=== PATIENT | male | born 1985 | race Caucasian/White ===

== ENCOUNTER 2018-11-16 14:29 | Inpatient (IN) | payer MEDICARE, SELFPAY ==
[2018-11-16] MEDS ORDERED: ISOVUE-370 76%-LOCM 1 ML ONE (15:28)
[2018-11-16] MEDS ORDERED: Fentanyl 100 MCG/2 ML VIAL ONE ×2 (15:54→17:43)
[2018-11-16] MEDS ORDERED: Ondansetron PF 4 MG/2 ML Vial ONE ×2 (15:54→18:07)
--- NOTE | 2018-11-16 16:03 | CT ---
CT OF THE LEFT LOWER EXTREMITY WITH IV CONTRAST: 11/16/18 INDICATION: History of BKA with sepsis and left lower extremity wound. FINDINGS: There is a wound involving the anterior aspect of the left BKA stump. There is prominent multiloculat ed fluid collections seen just distal to the amputation stump suspicious for small abscesses surround ing the BKA stump. No definite destructive osteolysis seen to suggest the presence of osteomyelitis. No large joint effusion is seen to suggest the presence of septic arthritis of the knee. There is pro minent cellulitis of the left thigh and left leg. There are enlarged lymph nodes seen within the left inguinal region likely reactive in nature. There is prominent distention of the visualized bladder. There is postsurgical change involving the symphysis pubis consistent with an arthrodesis. There is d iffuse osteopenia of the osseous structures of the left lower extremity. IMPRESSION: Cellulitis of the left leg and foreleg with multiple small loculated fluid collections seen just dist al to the BKA stump suspicious for periosseous abscesses. There is an open wound involving the anteri or aspect of the BKA stump that likely communicats with at least one of the more anterior based locul ated fluid collections. One of the largest collections is seen anteromedially measuring approximately 3.7 x 1 cm. POS: [facility]
[2018-11-16] MEDS ORDERED: Dextrose 5% in Water 1,000 ML IV PRN (18:12)
[2018-11-16] MEDS ORDERED: Bisacodyl 10 MG SUPP PR PRN (18:12)
[2018-11-16] MEDS ORDERED: Dextrose 50% Abboject 50 ML SYRINGE SLOW IVP PRN (18:12)
[2018-11-16] MEDS ORDERED: HumaLOG 300 UNITS/3 ML VIAL SC PRN (18:12)
[2018-11-16] MEDS ORDERED: Guaifenesin DM 100-10/5 ML UDCUP PO PRN (18:12)
[2018-11-16] MEDS ORDERED: Senokot S 8.6-50 MG TAB PO PRN (18:12)
[2018-11-16] MEDS ORDERED: Vancomycin HCl 1 GM in Sodium Chloride 0.9% 250 ML 300 ML IVPB SCH (18:15)
--- NOTE | 2018-11-16 18:50 | HP ---
REASON FOR ADMISSION: Left BKA stump abscess and sepsis. HISTORY OF PRESENTING ILLNESS: The patient gives history of having a small wound on the left BKA stump, which he sustained 4 weeks back. He says this likely happened with the stump rubbing onto the prosthesis that he has. This was slowly enlarging and finally got infected around 5 days back. His fiancee was doing the dressing on it, says yellowish purulent material started to come out from the ulcer in the anterior aspect. From yesterday, she also noticed a small ulcer on the medial aspect of the thigh, where purulent material started to appear as well. He also was feeling very febrile, but never measured any temperature. Finally, the patient went to [facility], where he was evaluated and transferred here. The patient is a traveling pipeline worker. He had his left BKA done in March of 2017 for nonhealing wounds on his legs after he fell from a ladder. He apparently broke his pelvis and his leg bones were broken at 4 pieces. This is as he fell from the ladder in 2016 and finally in 2018, he had a BKA done due to multiple gangrene issues and nonhealing wounds. PAST MEDICAL AND SURGICAL HISTORY: As mentioned above, left BKA in March of 2017 in [place], diabetes mellitus type 1 from last 30 years, chronic kidney disease stage 3, he has had all his teeth removed due to caries, tobacco abuse. CURRENT MEDICATIONS: Takes, 1. Lantus 12 units in a.m. and 14 units in p.m. 2. Humalog sliding scale. ALLERGIES: NO KNOWN DRUG ALLERGIES, BUT IS ALLERGIC TO MUSHROOMS. PERSONAL HISTORY: Smokes 1 pack a day. Does not abuse alcohol or drugs. Lives with his fiancee. Has 3 children. FAMILY HISTORY: Mother is healthy and living. He does not know much about his father for the last 30 years or so now. He has a daughter who has type 1 diabetes as well. CODE STATUS: Full. Power of commonwealth attorney is his fiancee, Ms. Elda Pinon, number to reach her is [phone]. REVIEW OF SYSTEMS: CONSTITUTIONAL: Negative for weight loss or gain, ability to conduct usual activities. SKIN: Negative for rash, itching. EYES: Negative for double vision, pain. ENT/MOUTH: Negative for nose bleeding, neck stiffness, pain, tenderness. CARDIOVASCULAR: Negative for palpitations, dyspnea on exertion, orthopnea. RESPIRATORY: Negative for shortness of breath, wheezing, cough, hemoptysis, fever or night sweats. GASTROINTESTINAL: Negative for poor appetite, abdominal pain, heartburn, nausea , vomiting, constipation, or diarrhea. GENITOURINARY: Negative for urgency, frequency, dysuria, nocturia. MUSCULOSKELETAL: Negative for pain, swelling. NEUROLOGIC/PSYCHIATRIC: Negative for anxiety, depression. ALLERGY/IMMUNOLOGIC: Negative for skin rash, bleeding tendency. PHYSICAL EXAMINATION: GENERAL: The patient is a 33-year-old male, who is currently not in any acute distress. VITAL SIGNS: Blood pressure 120/70, pulse 89 per minute, respiratory rate 14 per minute, temperature 98.9 degrees Fahrenheit, saturating 98% on room air. Had a temperature 103.5 degrees when he arrived at [facility]. NECK: Supple. No elevated JVD. HEENT: Eyes; extraocular muscles intact. Pupils reacting to light. Oral cavity, mucous membranes are dry. No exudates or congestion. CARDIOVASCULAR: S1 and S2 heard. Tachycardic. RESPIRATORY: Air entry 1+ bilateral. Scattered rhonchi plus no rales or wheezes. ABDOMEN: Soft. Bowel sounds heard. No tenderness, rigidity, or guarding. EXTREMITIES: Left BKA stump: on the anterior aspect there is a 5 x 3 cm ulcer, which is open and there is purulent material at the floor of the ulcer. He also has a medial ulcer on the stump, measuring 1 x 2 cm. There is bogginess and fullness of the stump. Right lower extremity, no ulcerations or gangrene. VASCULAR SYSTEM: Peripheral pulses 1+ bilateral. No ischemic ulcerations or gangrene. CENTRAL NERVOUS SYSTEM: No gross focal deficits noted. The patient is lethargic, but oriented well. PSYCHIATRIC: The patient's mood is euthymic. No hallucinations or delusions. LABORATORY AND DIAGNOSTIC DATA: Chest x-ray done shows no acute findings. Ultrasound of soft tissue of left knee done shows 2.3 cm hypoechoic collection on the lateral knee, deep to the muscle, most likely a debris-filled abscess. A CT of the left lower extremity with contrast done, shows cellulitis of the left leg and foreleg with multiple small loculated fluid collections seen just distal to the BKA stump, suspicious for periosseous abscesses. There is an open wound involving the anterior aspect of the BKA stump that likely communicates with at least one of the more anterior based loculated fluid collections. One of the largest collections is seen anteromedially, measuring 3.7 x 1 cm. White count of 13, H and H 11 and 37, and platelet count 322 with 88% neutrophils, MCV is 87. BUN 34, creatinine 1.7. Lactic acid was 1.3. LFTs are within normal limits. Albumin is 4. CLINICAL IMPRESSION AND PLAN: The patient will be admitted to medical floor for left BKA stump abscess with cellulitis and sepsis. Wound cultures were likely obtained at [facility]. I have asked the staff here to obtain another culture just in case. He is to be placed on vancomycin and Zosyn. We will continue him on Lantus 10 units subcu twice daily. He will be generously hydrated. He will be on lactated Ringer's at 100 mL/hour. I have spoken to Dr. Ivan for General Surgery consult. We will keep him n.p.o. after midnight if he needs further debridement in the OR. He will be on morphine p.r.n. for pain. We will obtain HbA1c in the morning. The patient apparently is very functional with his left BKA prosthesis and works actively in the pipeline industry. He states he travels all over the [place] wherever he gets work. He is not from any particular place at present. Job ID: [id number] [facility]
[2018-11-16] MEDS ORDERED: Insulin Glargine 10 UNITS in Pre-Filled Syringe 1 EACH SC SCH (21:00)
[2018-11-16] MEDS: Morphine 2 MG/ML SYRINGE SLOW IVP PRN (21:01)
[2018-11-16] MEDS: Nicotine 14 MG PATCH TD SCH (21:03)
[2018-11-16 21:48] VITALS: BMI 24.2
[2018-11-16] MEDS: Lactated Ringer's 1,000 ML IV SCH (22:47)
[2018-11-16] MEDS: Famotidine 20 MG TAB PO SCH (22:47)
[2018-11-16] MEDS: Piperacillin/Tazobactam 3.375 GM in Sodium Chloride 0.9% 100 ML IVPB SCH (22:47)
[2018-11-16] MEDS: Acetaminophen 325 MG TAB PO PRN (23:39)
--- NOTE | 2018-11-17 02:27 | CON ---
DATE OF CONSULTATION: 11/16/2018 CONSULTING PHYSICIAN: Gabriel Pineda MD REASON FOR CONSULTATION: Left below-knee stump infection. HISTORY OF PRESENT ILLNESS: The patient is a 33-year-old diabetic white male. He gives a history of having suffered a traumatic fall in 2015, at which time he had pelvic surgery and left lower extremity surgery. He apparently returned to work, developed swelling and ulcers on his foot at this surgical site. He developed infection to the point that it could not be salvaged and in March 2017, he underwent a left below-knee amputation. He has been ambulating since then with a prosthesis. 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 He tells me that he developed an ulcer at the anterior aspect of his left below-knee stump a few weeks ago and was trying to take care of this while still working. Unfortunately, the ulcer got bigger, eroded down into the stump, and he finally came to the emergency room for evaluation regarding this. He is a heavy smoker and in spite of his diabetes and wound issues, still smokes 1 pack per day of cigarettes. He typically takes several medications that he has not taken in at least a couple of months because of his current lack of insurance. PAST MEDICAL HISTORY: Hypertension, hypercholesterolemia, stage 3 kidney disease, insulin-dependent diabetes mellitus. PAST SURGICAL HISTORY: Pelvic surgery in 2015, left lower leg surgery in 2015, left below-knee amputation in March 2017, eye surgery for diabetic retinopathy in 2008. MEDICATIONS: Takes Lantus insulin twice a day and Humalog on a sliding scale. He is supposed to be taking lisinopril, metoprolol, and Lipitor, but has not taken any of these in at least 2 months. ALLERGIES: NO KNOWN DRUG ALLERGIES. PERSONAL AND SOCIAL HISTORY: He is engaged and his fiancee is present at bedside. He has 3 children who live in [place]. He smokes about a pack per day of cigarettes. He drinks alcohol rarely. He works at a [employer]. REVIEW OF SYSTEMS: Otherwise unremarkable. FAMILY HISTORY: Noncontributory. PHYSICAL EXAMINATION: VITAL SIGNS: He is afebrile. Pulse is in the 90s and regular. Blood pressure is 119/60. He has been afebrile since he has been here. GENERAL: This is a well-developed, well-nourished, pleasant white male, resting in bed, in no acute distress. He has multiple tattoos. HEAD, EYES, EARS, NOSE, AND THROAT: Unremarkable. NECK: Supple without mass or tenderness. LUNGS: Clear to auscultation throughout. CARDIAC: Regular rate and rhythm without murmur. ABDOMEN: Soft, nontender, nondistended. EXTREMITIES: Examination is focused upon his left leg. He has an open wound over the distal anterior aspect of his right below-knee stump. This currently measures about 1.5 x 2.5 cm. There is a central tract that extends deeply. With a Q-tip, I am able to palpate the tibia through this. There appears to be a cavity in this area. When I press on this area, purulence is expressed up through the tract. Cultures were obtained of this, the wound was packed with gauze and dry gauze dress was placed. LABORATORY DATA: His comprehensive metabolic panel is reviewed. His creatinine is elevated at 1.78. He has no prior labs for comparison, but I suspect this is stable. CBC reveals white blood cell count of 13.8 with a hemoglobin of 11.7. ASSESSMENT: The patient with an infected left below-knee stump. I would be surprised if the bone is not involved as it seems that I can palpate this with a Q-tip. PLAN: Plan for now is to take him to the operating room to open the wound to be able to better clean it out, begin wound care. Cultures have been obtained and as soon as possible, he will be changed to culture specific antibiotics. He will certainly require wound care for this to allow the infection to improve or resolve. I suspect when the infection is better, that he will need a revision of his below-knee amputation. There appears to be enough length that we could likely proceed with a revision without having to convert to an above-knee amputation. I did, however, expressed him the possibility of conversion to an above-knee amputation depending upon his course. I also informed him as strongly as possible the absolute importance that he stop smoking if he hopes this area to be able to heal appropriately. Job ID: [id number]
[2018-11-17] MEDS: Morphine 2 MG/ML SYRINGE SLOW IVP PRN ×6 (06:12→23:19)
[2018-11-17] MEDS: Piperacillin/Tazobactam 3.375 GM in Sodium Chloride 0.9% 100 ML IVPB SCH ×3 (06:13→23:19)
[2018-11-17 06:38] LABS: #Basophils 0.1 thou/uL (0.0-0.2); #Eosinphils 0.3 thou/uL (0.0-0.7); #Lymphocytes 1.9 thou/uL (1.20-3.40); #Monocytes 1.1 thou/uL (0.11-0.59); #Neutrophils 9.8 thou/uL (1.40-6.50); %Basophils 0.5 % (0.0-1.0); %Eosinophils 2.4 % (0.0-10.0); %Lymphocytes 14.4 % (21.0-51.0); %Neutrophils 74.8 % (42.0-75.0); Hemoglobin 9.6 g/dL (14.0-18.0); Mean Corpuscular HGB CONC 32.8 g/dL (32.0-36.0); Mean Corpuscular Hemoglobin 29.2 pg (27.0-31.0); Mean Corpuscular Volume 88.8 fL (78.0-98.0); Mean Platelet Volume 9.1 fL (7.4-10.4); Platelet Count 244 thou/uL (130-400); RBC Distribution Width 12.8 % (11.5-14.5); Red Blood Cell (RBC) Count 3.29 mill/uL (4.70-6.10); White Blood Cell (WBC) Count 13.1 thou/uL (4.8-10.8)
[2018-11-17 06:53] LABS: Hemoglobin A1c 13.2 % (4.0-6.0)
[2018-11-17 07:15] LABS: Anion Gap 11 mmol/L (10-20); BUN (Urea Nitrogen) 27 mg/dL (8.9-20.6); Calc. Creatinine Clearance 58 mL/min (70-130); Calcium 8.3 mg/dL (7.8-10.44); Carbon Dioxide 21 mmol/L (22-29); Chloride 106 mmol/L (98-107); Estimated GFR-MDRD 46; Glucose 102 mg/dL (70-105); Phosphorus 4.1 mg/dL (2.3-4.7); Potassium 4.7 mmol/L (3.5-5.1); Sodium 133 mmol/L (136-145)
[2018-11-17] MEDS: Lactated Ringer's 1,000 ML IV SCH ×3 (08:42→20:37)
[2018-11-17] MEDS: Famotidine 20 MG TAB PO SCH ×2 (08:43→20:30)
[2018-11-17] MEDS: Enoxaparin Sodium 30 MG/0.3 ML SYRINGE SC SCH (08:43)
[2018-11-17] MEDS: Insulin Glargine 10 UNITS in Pre-Filled Syringe 1 EACH SC SCH ×2 (08:47→20:29)
--- NOTE | 2018-11-17 11:46 | PDOC.HOSPP ---
- Subjective Encounter Date: 11/17/18 Encounter Time: 11:00 Subjective: no sob or pain feels better is npo for debridement shortly - Objective Vital Signs & Weight: Vital Signs (12 hours) Temp Pulse Resp BP BP Pulse Ox 11/17/18 08:00 99.1 F 81 16 142/70 H 96 11/17/18 04:00 98.3 F 81 16 131/67 96 Weight Weight 150 lb Result Diagrams: 11/17/18 06:23 11/17/18 06:23 Additional Labs: Accuchecks 11/17/18 11/17/18 11/16/18 11:01 05:40 23:40 POC Glucose 220 H 85 82 11/16/18 20:09 POC Glucose 71 Hospitalist ROS - Medication Medications: Active Medications Generic Name Dose Route Start Last Admin Trade Name Freq PRN Reason Stop Dose Admin Acetaminophen 650 mg 11/16/18 18:12 11/16/18 23:39 Tylenol PO 650 mg Q4H PRN Administration Headache/Fever/Mild Pain (1-3) Enoxaparin Sodium 30 mg 11/17/18 09:00 11/17/18 08:43 Lovenox SC Not Given 0900 WALTER Famotidine 20 mg 11/16/18 21:00 11/17/18 08:43 Pepcid PO Not Given BID WALTER Piperacillin Sod/Tazobactam 100 mls @ 200 mls/hr 11/16/18 23:00 11/17/18 06: 13 Sod 3.375 gm/ Sodium Chloride IVPB 100 mls 0700,1500,2300 WALTER Administration Lactated Ringer's 1,000 mls @ 100 mls/hr 11/16/18 18:30 11/17/18 09:47 Lactated Ringer's IV 1,000 mls .Q10H WALTER Administration Insulin Glargine 10 units/ 0.1 mls @ 0 mls/hr 11/17/18 09:00 11/17/18 08:47 Miscellaneous Medication SC Not Given BID WALTER Morphine Sulfate 2 mg 11/16/18 19:54 11/17/18 09:48 Morphine SLOW IVP 2 mg Q2H PRN Administration Breakthrough Pain Nicotine 14 mg 11/16/18 20:15 11/16/18 21:03 Nicoderm Patch TD 14 mg Q24HR WALTER Administration - Exam General Appearance: NAD, awake alert Eye: PERRL, anicteric sclera ENT: no oropharyngeal lesions, moist mucosa Neck: supple, no JVD Heart: RRR, no murmur Respiratory: no wheezes, no rales Gastrointestinal: soft, non-tender, normal bowel sounds Extremeties - other findings: left bka stump in dressing Neurological: CN's grossly intact, no focal deficits Psychiatric: normal affect, A&O x 3 Hosp A/P (1) left bka stump abscess Status: Acute (2) DM type 1 (diabetes mellitus, type 1) Status: Chronic Qualifiers: Diabetes mellitus complication status: with kidney complications Diabetes mellitus complication detail: with chronic kidney disease Chronic kidney disease stage: stage 3 (moderate) Qualified Code(s): E10.22 - Type 1 diabetes mellitus with diabetic chronic kidney disease; N18.3 - Chronic kidney disease, stage 3 (moderate) (3) CKD (chronic kidney disease) stage 3, GFR 30-59 ml/min Code(s): N18.3 - CHRONIC KIDNEY DISEASE, STAGE 3 (MODERATE) Status: Chronic (4) ANIYAH (acute kidney injury) Code(s): N17.9 - ACUTE KIDNEY FAILURE, UNSPECIFIED Status: Acute (5) Dehydration Code(s): E86.0 - DEHYDRATION Status: Resolved (6) Sepsis Code(s): A41.9 - SEPSIS, UNSPECIFIED ORGANISM Status: Acute Qualifiers: Sepsis type: sepsis due to unspecified organism Severe sepsis shock status : without septic shock - Plan is going for debridement today continue lantus post op bid with humalog cov on vanc and zosyn, await culture results aniyah is resolving, has ckd hemostable
[2018-11-17] MEDS ORDERED: Ondansetron PF 4 MG/2 ML Vial ONE (11:49)
[2018-11-17] MEDS ORDERED: Lidocaine 1% PF 5 ML VIAL ONE (11:49)
[2018-11-17] MEDS ORDERED: PROPOFOL 200 MG/20 ML VIAL ONE (11:49)
[2018-11-17] MEDS ORDERED: Fentanyl 100 MCG/2 ML VIAL ONE ×3 (12:20→14:13)
[2018-11-17] MEDS ORDERED: Morphine Sulfate 2 MG/ML SYRINGE SLOW IVP PRN (13:35)
[2018-11-17] MEDS ORDERED: Promethazine HCl 25 MG/ML VIAL IM PRN (13:35)
[2018-11-17] MEDS ORDERED: Ondansetron HCl/PF 4 MG/2 ML Vial IVP PRN (13:35)
[2018-11-17] MEDS ORDERED: PACU-Morphine 4MG/ML VIAL SLOW IVP PRN (13:35)
[2018-11-17] MEDS ORDERED: Promethazine HCl 25 MG/ML VIAL SLOW IVP PRN (13:35)
[2018-11-17] MEDS ORDERED: HYDROmorphone 2 MG/ML VIAL SLOW IVP PRN (13:35)
[2018-11-17] MEDS ORDERED: Meperidine HCl/PF 25 MG/ML VIAL SLOW IVP PRN (13:35)
[2018-11-17] MEDS: Vancomycin HCl 1.25 GM in Sodium Chloride 0.9% 250 ML 250 ML IVPB SCH (13:39)
[2018-11-17] MEDS: Ondansetron PF 4 MG/2 ML Vial IVP PRN (15:52)
[2018-11-17] MEDS: HumaLOG 300 UNITS/3 ML VIAL SC PRN ×2 (18:42→20:29)
[2018-11-17] MEDS: Acetaminophen 325 MG TAB PO PRN (18:45)
[2018-11-17] MEDS: traMADol HCl 50 MG TAB PO PRN (18:46)
[2018-11-17] MEDS: Nicotine 14 MG PATCH TD SCH (20:30)
[2018-11-18] MEDS: Morphine 2 MG/ML SYRINGE SLOW IVP PRN ×11 (01:18→21:57)
[2018-11-18] MEDS: HumaLOG 300 UNITS/3 ML VIAL SC PRN ×2 (05:23→11:41)
[2018-11-18] MEDS: Lactated Ringer's 1,000 ML IV SCH (06:29)
[2018-11-18] MEDS: Piperacillin/Tazobactam 3.375 GM in Sodium Chloride 0.9% 100 ML IVPB SCH ×3 (06:30→22:47)
[2018-11-18] MEDS: Ondansetron PF 4 MG/2 ML Vial IVP PRN ×2 (07:28→15:35)
[2018-11-18] MEDS: Famotidine 20 MG TAB PO SCH ×2 (09:09→20:17)
[2018-11-18] MEDS: traMADol HCl 50 MG TAB PO PRN (09:09)
[2018-11-18] MEDS: Insulin Glargine 20 UNITS in Pre-Filled Syringe 1 EACH SC SCH ×2 (09:10→20:18)
[2018-11-18] MEDS: Enoxaparin Sodium 30 MG/0.3 ML SYRINGE SC SCH (10:42)
[2018-11-18 11:22] LABS: #Basophils 0.1 thou/uL (0.0-0.2); #Eosinphils 0.3 thou/uL (0.0-0.7); #Lymphocytes 1.1 thou/uL (1.20-3.40); #Monocytes 0.7 thou/uL (0.11-0.59); #Neutrophils 6.7 thou/uL (1.40-6.50); %Basophils 0.7 % (0.0-1.0); %Eosinophils 3.3 % (0.0-10.0); %Lymphocytes 12.9 % (21.0-51.0); %Monocytes 7.5 % (0.0-10.0); %Neutrophils 75.5 % (42.0-75.0); Hemoglobin 8.7 g/dL (14.0-18.0); Mean Corpuscular Hemoglobin 29.1 pg (27.0-31.0); Mean Corpuscular Volume 88.2 fL (78.0-98.0); Mean Platelet Volume 8.7 fL (7.4-10.4); Platelet Count 268 thou/uL (130-400); RBC Distribution Width 12.6 % (11.5-14.5); Red Blood Cell (RBC) Count 2.98 mill/uL (4.70-6.10); White Blood Cell (WBC) Count 8.9 thou/uL (4.8-10.8)
[2018-11-18 11:40] LABS: Vancomycin, Trough 10.5 ug/mL
[2018-11-18] MEDS: Vancomycin HCl 1.25 GM in Sodium Chloride 0.9% 250 ML 250 ML IVPB SCH (11:41)
[2018-11-18 11:43] LABS: Anion Gap 11 mmol/L (10-20); BUN (Urea Nitrogen) 22 mg/dL (8.9-20.6); Calc. Creatinine Clearance 65 mL/min (70-130); Calcium 8.4 mg/dL (7.8-10.44); Carbon Dioxide 22 mmol/L (22-29); Chloride 106 mmol/L (98-107); Estimated GFR-MDRD 52; Glucose 230 mg/dL (70-105); Potassium 4.8 mmol/L (3.5-5.1); Sodium 134 mmol/L (136-145)
--- NOTE | 2018-11-18 12:04 | PDOC.HOSPP ---
- Subjective Encounter Date: 11/18/18 Encounter Time: 11:15 Subjective: feels better left bka stump in wound vac no pain - Objective Vital Signs & Weight: Vital Signs (12 hours) Temp Pulse Resp BP BP Pulse Ox 11/18/18 08:00 98.2 F 72 18 144/77 H 98 11/18/18 03:30 97.8 F 68 16 143/72 H 96 Weight Admit Weight 150 lb Weight 150 lb Result Diagrams: 11/18/18 11:11 11/18/18 11:11 Additional Labs: Accuchecks 11/18/18 11/18/18 11/17/18 11:10 05:23 20:00 POC Glucose 229 H 289 H 399 H 11/17/18 11/17/18 18:27 12:27 POC Glucose 423 H 215 H Hospitalist ROS - Medication Medications: Active Medications Generic Name Dose Route Start Last Admin Trade Name Freq PRN Reason Stop Dose Admin Acetaminophen 650 mg 11/16/18 18:12 11/17/18 18:45 Tylenol PO 650 mg Q4H PRN Administration Headache/Fever/Mild Pain (1-3) Enoxaparin Sodium 30 mg 11/17/18 09:00 11/18/18 10:42 Lovenox SC Not Given 0900 WALTER Famotidine 20 mg 11/16/18 21:00 11/18/18 09:09 Pepcid PO 20 mg BID WALTER Administration Piperacillin Sod/Tazobactam 100 mls @ 200 mls/hr 11/16/18 23:00 11/18/18 06: 30 Sod 3.375 gm/ Sodium Chloride IVPB 100 mls 0700,1500,2300 WALTER Administration Vancomycin HCl 1.25 gm/ Sodium 250 mls @ 166.667 mls/hr 11/17/18 12:00 11:41 Chloride IVPB 250 mls 1200 WALTER Administration Insulin Glargine 20 units/ 0.2 mls @ 0 mls/hr 11/18/18 09:00 11/18/18 09:10 Miscellaneous Medication SC 0.2 mls BID WALTER Administration Insulin Human Lispro 0 units 11/16/18 18:12 11/18/18 11:41 Humalog SC 4 unit .MODERATE SLIDING SC PRN Administration Moderate Correctional Scale Morphine Sulfate 2 mg 11/16/18 19:54 11/18/18 11:42 Morphine SLOW IVP 2 mg Q2H PRN Administration Breakthrough Pain Nicotine 14 mg 11/16/18 20:15 11/17/18 20:30 Nicoderm Patch TD 14 mg Q24HR WALTER Administration Ondansetron HCl 4 mg 11/16/18 18:12 11/18/18 07:28 Zofran IVP 4 mg Q6H PRN Administration Nausea/Vomiting Tramadol HCl 50 mg 11/16/18 18:12 11/18/18 09:09 Ultram PO 50 mg Q6H PRN Administration Pain - Exam General Appearance: NAD, ill appearing Eye: PERRL, anicteric sclera ENT: normocephalic atraumatic, no oropharyngeal lesions Neck: supple, no JVD Heart: RRR, no murmur Respiratory: no wheezes, no rales Gastrointestinal: soft, non-tender, normal bowel sounds Extremeties - other findings: left bka stump in wound vac Neurological: CN's grossly intact, no focal deficits Psychiatric: normal affect, A&O x 3 Hosp A/P (1) left bka stump abscess Status: Acute (2) DM type 1 (diabetes mellitus, type 1) Status: Chronic Qualifiers: Diabetes mellitus complication status: with kidney complications Diabetes mellitus complication detail: with chronic kidney disease Chronic kidney disease stage: stage 3 (moderate) Qualified Code(s): E10.22 - Type 1 diabetes mellitus with diabetic chronic kidney disease; N18.3 - Chronic kidney disease, stage 3 (moderate) (3) CKD (chronic kidney disease) stage 3, GFR 30-59 ml/min Code(s): N18.3 - CHRONIC KIDNEY DISEASE, STAGE 3 (MODERATE) Status: Chronic (4) ANIYAH (acute kidney injury) Code(s): N17.9 - ACUTE KIDNEY FAILURE, UNSPECIFIED Status: Resolved (5) Dehydration Code(s): E86.0 - DEHYDRATION Status: Resolved (6) Sepsis Code(s): A41.9 - SEPSIS, UNSPECIFIED ORGANISM Status: Acute Qualifiers: Sepsis type: sepsis due to unspecified organism Severe sepsis shock status : without septic shock - Plan had debridement on 11/17/2018, wound in vac increase lantus to 20 bid with humalog cov on vanc and zosyn, await culture results (strep species with gm -ve rods) aniyah resolved, has ckd #3 hemostable
--- NOTE | 2018-11-18 15:57 | PRG ---
DATE OF SERVICE: 11/18/2018 SUBJECTIVE: Mr. Crowell is postoperative day #1 from incision and drainage of left below-knee amputation stump. He had a loculated abscess to the medial aspect as well as purulence within the soft tissue. I am not really certain that the bone was infected as it really did not seem to be exposed or involved. The cultures of his stump drainage have resulted in two different varieties of Streptococcus, both of which will be easily treated by a variety of antibiotics. He currently remains on vancomycin, which is more than adequate coverage as well as Zosyn. He can probably be transitioned to oral antibiotics in the near future. He reports that he feels better and has less pain in his stump. PHYSICAL EXAMINATION: VITAL SIGNS: Temperature is 98.2, pulse 72, blood pressure 144/77. LUNGS: Clear to auscultation. ABDOMEN: Benign. EXTREMITIES: Stump has a wound VAC dressing in place. LABORATORY STUDIES: His white blood cell count has dropped from 13.1 down to 8.9. His hemoglobin is 8.7. His electrolytes are essentially unremarkable. His creatinine has dropped from 1.72 down to 1.55. His blood sugars remain persistently elevated over 200, indicating that he is not on enough baseline insulin. ASSESSMENT: He is doing well following incision and drainage of his stump abscess. He will require ongoing wound care. Given that his infection was only Streptococcus, he should be well treated with a variety of oral antibiotics. I will leave this at the discretion of his hospitalist. He would certainly benefit from tighter glucose control. It is noted that his hemoglobin A1c was 13.2, which would correspond to an average blood sugar of 330 over the prior three months. His glucose control is horribly inadequate. I spent quite a while today, speaking with the patient and his girlfriend regarding the importance of his complete smoking cessation as well as better glucose control if he hopes to heal this wound and prevent further wounds and further amputations. He seems to understand and hopes to make these changes. He is awaiting a home wound VAC prior to discharge. He tells me he plans to stay in the area and continue to work for his current company. Whenever he is discharged, I want to see him back in 2 weeks. Job ID: [id number]
[2018-11-18] MEDS: Nicotine 14 MG PATCH TD SCH (19:43)
[2018-11-19] MEDS ORDERED: Vancomycin HCl 750 MG in Sodium Chloride 0.9% 250 ML 250 ML IVPB SCH
[2018-11-19] MEDS: Morphine 2 MG/ML SYRINGE SLOW IVP PRN ×5 (00:04→11:07)
--- NOTE | 2018-11-19 03:27 | OP ---
DATE OF PROCEDURE: 11/16/2018 PREOPERATIVE DIAGNOSIS: Infection of left below-knee amputation stump with suspected abscess. POSTOPERATIVE DIAGNOSIS: Infection of left below-knee amputation stump with suspected abscess with finding of abscess. PROCEDURE PERFORMED: Incision and drainage of left below-knee amputation stump. ANESTHESIA: General with laryngeal mask airway. INDICATIONS: The patient is a 33-year-old diabetic white male, who has undergone previous left below-knee amputation. He has an ulcer on the anterior distal aspect of the stump overlying the end of the bone. There is no bone protruding. Recent CT scan shows what appears to be an abscess in the area. He is taken to the operating room at this time for incision and drainage of the wound. DESCRIPTION OF OPERATION: Informed consent was obtained. The patient was taken to the operating room, where general anesthesia was obtained with the patient in supine position. Left BKA stump was prepped with Betadine and draped in sterile fashion. A transverse incision was created at the incision line of his prior stump closure. This was towards the inferior aspect of the ulcer. Dissection was carried through the skin and subcutaneous tissue down into the abscess cavity. The total width of the incision was about 8 cm. I broke down loculations and opened the cavity widely. There was no exposed bone. As I examined to the medial aspect, I identified a separate abscess cavity and this was opened widely. This extended proximally about 3 or 4 cm. The wound bed was then debrided using curette. I then packed the wound with a dry gauze dressing. I placed a Kerlix roll and an Naveen wrap over the wound. There were no complications. The patient tolerated the procedure well. He was taken to recovery room in stable condition. A wound VAC will be placed tomorrow. Job ID: [id number]
[2018-11-19] MEDS: Piperacillin/Tazobactam 3.375 GM in Sodium Chloride 0.9% 100 ML IVPB SCH (06:31)
[2018-11-19] MEDS: HumaLOG 300 UNITS/3 ML VIAL SC PRN ×2 (06:34→11:53)
[2018-11-19] MEDS: Ondansetron PF 4 MG/2 ML Vial IVP PRN ×2 (08:21→16:43)
[2018-11-19 08:24] VITALS: TEMP 98.1
[2018-11-19] MEDS ORDERED: Amoxicillin/Potassium Clav 875 MG TAB PO SCH (09:00)
[2018-11-19] MEDS ORDERED: Insulin Glargine 30 UNITS in Pre-Filled Syringe 1 EACH SC SCH (09:00)
[2018-11-19] MEDS: Enoxaparin Sodium 30 MG/0.3 ML SYRINGE SC SCH (09:33)
[2018-11-19] MEDS: Famotidine 20 MG TAB PO SCH (09:33)
[2018-11-19] MEDS: Acetaminophen 325 MG TAB PO PRN ×2 (09:34→16:42)
[2018-11-19] MEDS: traMADol HCl 50 MG TAB PO PRN ×2 (09:35→16:41)
--- NOTE | 2018-11-19 11:20 | PDOC.HOSPP ---
- Subjective Encounter Date: 11/19/18 Encounter Time: 11:00 Subjective: feels better, no pain - Objective Vital Signs & Weight: Vital Signs (12 hours) Temp Pulse Resp BP Pulse Ox 11/19/18 08:00 98.1 F 80 18 200/95 H 95 Weight Admit Weight 150 lb Weight 150 lb I&O: 11/18/18 11/19/18 11/20/18 06:59 06:59 06:59 Intake Total 799 Balance 799 Result Diagrams: 11/18/18 11:11 11/18/18 11:11 Additional Labs: Accuchecks 11/19/18 11/19/18 11/18/18 11:07 04:56 20:09 POC Glucose 226 H 261 H 319 H 11/18/18 11/18/18 16:04 11:10 POC Glucose 187 H 229 H Hospitalist ROS - Medication Medications: Active Medications Generic Name Dose Route Start Last Admin Trade Name Freq PRN Reason Stop Dose Admin Acetaminophen 650 mg 11/16/18 18:12 11/19/18 09:34 Tylenol PO 650 mg Q4H PRN Administration Headache/Fever/Mild Pain (1-3) Amoxicillin/Clavulanate Potassium 875 mg 11/19/18 09:00 11/19/18 09:33 Augmentin PO 875 mg Q12HR WALTER Administration Enoxaparin Sodium 30 mg 11/17/18 09:00 11/19/18 09:33 Lovenox SC 30 mg 0900 WALTER Administration Famotidine 20 mg 11/16/18 21:00 11/19/18 09:33 Pepcid PO 20 mg BID WALTER Administration Insulin Glargine 30 units/ 0.3 mls @ 0 mls/hr 11/19/18 09:00 11/19/18 09:33 Miscellaneous Medication SC 0.3 mls BID WALTER Administration Insulin Human Lispro 0 units 11/16/18 18:12 11/19/18 06:34 Humalog SC 6 unit .MODERATE SLIDING SC PRN Administration Moderate Correctional Scale Insulin Human Lispro 0 units 11/16/18 18:12 11/18/18 20:17 Humalog SC 4 unit .BEDTIME SLIDING SC PRN Administration Bedtime Correctional Scale Morphine Sulfate 2 mg 11/16/18 19:54 11/19/18 11:07 Morphine SLOW IVP 2 mg Q2H PRN Administration Breakthrough Pain Nicotine 14 mg 11/16/18 20:15 11/18/18 19:43 Nicoderm Patch TD 14 mg Q24HR WALTER Administration Ondansetron HCl 4 mg 11/16/18 18:12 11/19/18 08:21 Zofran IVP 4 mg Q6H PRN Administration Nausea/Vomiting Sodium Chloride 10 ml 11/18/18 21:00 11/18/18 20:23 Flush - Normal Saline IVF 10 ml Q12HR WALTER Administration Sodium Chloride 10 ml 11/18/18 19:42 11/19/18 04:57 Flush - Normal Saline IVF 10 ml PRN PRN Administration Saline Flush Tramadol HCl 50 mg 11/16/18 18:12 11/19/18 09:35 Ultram PO 50 mg Q6H PRN Administration Pain - Exam General Appearance: NAD, awake alert Eye: PERRL, anicteric sclera ENT: normocephalic atraumatic, no oropharyngeal lesions, moist mucosa Neck: supple, no JVD Heart: RRR, no murmur Respiratory: no wheezes, no rales Gastrointestinal: soft, non-tender, non-distended, normal bowel sounds Extremities: no edema Extremeties - other findings: right bka stump in wound vac Neurological: CN's grossly intact, no focal deficits Psychiatric: A&O x 3 Hosp A/P (1) left bka stump abscess Status: Acute (2) DM type 1 (diabetes mellitus, type 1) Status: Chronic Qualifiers: Diabetes mellitus complication status: with kidney complications Diabetes mellitus complication detail: with chronic kidney disease Chronic kidney disease stage: stage 3 (moderate) Qualified Code(s): E10.22 - Type 1 diabetes mellitus with diabetic chronic kidney disease; N18.3 - Chronic kidney disease, stage 3 (moderate) (3) CKD (chronic kidney disease) stage 3, GFR 30-59 ml/min Code(s): N18.3 - CHRONIC KIDNEY DISEASE, STAGE 3 (MODERATE) Status: Chronic (4) ANIYAH (acute kidney injury) Code(s): N17.9 - ACUTE KIDNEY FAILURE, UNSPECIFIED Status: Resolved (5) Dehydration Code(s): E86.0 - DEHYDRATION Status: Resolved (6) Sepsis Code(s): A41.9 - SEPSIS, UNSPECIFIED ORGANISM Status: Resolved Qualifiers: Sepsis type: sepsis due to unspecified organism Severe sepsis shock status : without septic shock - Plan had debridement on 11/17/2018, wound in vac increase lantus to 30 bid with humalog cov on augmentin bid aniyah resolved, has ckd #3 hemostable will need outpt wound vac and help with insulins for dc plan may dc home if above is arranged, d/w caser up
[2018-11-19] MEDS ORDERED: Lisinopril 10 MG TAB PO SCH (12:00)
[2018-11-19] MEDS ORDERED: Ketorolac Tromethamine 30 MG/ML VIAL IVP PRN (12:15)
[2018-11-19 13:15] VITALS: BP 168/82
[2018-11-19] MEDS ORDERED: Metoprolol Tartrate 25 MG TAB PO SCH (21:00)
[2018-11-20] MEDS ORDERED: Lisinopril 10 MG TAB PO SCH (09:00)
--- NOTE | 2018-11-21 08:17 | DIS ---
DATE OF ADMISSION: 11/16/2018 DATE OF DISCHARGE: 11/19/2018 DISCHARGE DISPOSITION: Home. PRIMARY DISCHARGE DIAGNOSIS: Left below-knee amputation stump abscess with cellulitis status post incision and drainage. SECONDARY DISCHARGE DIAGNOSES: Sepsis, diabetes mellitus type 1, chronic kidney disease stage 3, and dehydration on arrival, resolved. PROCEDURES DONE DURING HOSPITALIZATION: The patient has had incision and drainage of left BKA abscess done by Dr. Ivan on 11/17/2018. CT of left lower extremity with IV contrast done on the day of admission showed cellulitis of left leg and foreleg with multiple small loculated fluid collections seen just distal to the BKA stump suspicious for periosseous abscesses. There is an open wound involving the anterior aspect of the BKA stump that likely communicates with at least one of the more anterior based loculated fluid collections. One largest collection is seen anteromedially measuring approximately 3.7 x 1 cm. Wound cultures from this left BKA stump have grown Streptococcus group C, group B, Staph aureus, and gram- positive leslie. Blood cultures x2, no growth. Had a white count of 13 on the day of admission, discharge white count of 8.9, H and H 8.7 and 26, platelet count 268, MCV is 88. BUN and creatinine on the were 22 and 1.5. HbA1c 13.2. DISCHARGE MEDICATIONS: 1. Lisinopril 10 mg daily. 2. Toprol-XL 25 mg daily. 3. Augmentin 500/125 mg one tablet twice daily for a total of 10 days. 4. Lantus 30 units subcu twice daily. 5. Humalog subcu before meals. 6. Ultram p.r.n. for pain. ALLERGIES: MUSHROOM. INPATIENT CONSULT: Dr. Ivan for General Surgery. DISCHARGE PLAN: The patient to follow up with Dr. Ivan in 2 weeks. He also needs to follow up with the Wound Care and primary care physician, [facility] in 1 week. BRIEF COURSE DURING HOSPITALIZATION: The patient initially got admitted on the with findings suggestive of left BKA stump abscess with cellulitis. This has been slowly building in 4 weeks, which got worse 4 days prior to arrival here. He was evaluated by Dr. Ivan. The patient has had incision and debridement of the abscess on the left BKA stump. Postop, the patient's wound was placed in a wound VAC. He was septic on arrival with uncontrolled diabetes and moderate dehydration as well. The patient was generously hydrated and was on IV antibiotics, which has been switched over to Augmentin at the time of discharge based on cultures. He is hemodynamically stable. Prior to arrival here, the patient was ambulating with his prosthesis. He likely needs to use a rolling walker or crutches to ambulate now. Outpatient wound care appointments have been set up for him. He needs to follow up with Dr. Ivan in 2 weeks. The patient was counseled with regard to tobacco abuse and tight control of his diabetes. His Lantus insulin doses were increased to 30 units twice daily. He has been advised to check fingerstick glucose twice daily and record to follow up with primary care physician for changes in his medications. He is otherwise hemodynamically stable and has been cleared by General Surgery for discharge. Please note I have seen and examined patient on the day of discharge. Job ID: [id number] MTDD
== END 2018-11-19 17:50 | disposition home or self-care (01) | DRG 500 ==
LOC: ERS 14:29 → ONC 16:45
PROVIDERS: ADMIT Internal Medicine; ATTEND Internal Medicine
PROC: 0J9P0ZZ Drainage of Left Lower Leg Subcutaneous Tissue and Fascia, Open Approach (ICD-10-PCS; principal; 2018-11-18)
DX: T87.44 Infection of amputation stump, left lower extremity (principal); A41.9 Sepsis, unspecified organism; N17.9 Acute kidney failure, unspecified; L02.416 Cutaneous abscess of left lower limb; Y83.9 Surgical procedure, unspecified as the cause of abnormal reaction of the patient, or of later complication, without mention of misadventure at the time of the procedure; E86.0 Dehydration; I12.9 Hypertensive chronic kidney disease with stage 1 through stage 4 chronic kidney disease, or unspecified chronic kidney disease; E10.22 Type 1 diabetes mellitus with diabetic chronic kidney disease; F17.210 Nicotine dependence, cigarettes, uncomplicated; N18.3 Chronic kidney disease, stage 3 (moderate); E78.00 Pure hypercholesterolemia, unspecified; Z79.4 Long term (current) use of insulin
CPT/HCPCS: 36415; 36416; 80048; 80069; 80202; 83036; 83605; 85025; 87070; 87077; 87186; 87205; 96361; 96374; 96375; 96376; J1650; J1815; J1885; J2001; J2270; J2405; J2543; J2704; J3010; J3370; J3490; J7050; Q9966

== ENCOUNTER → 2018-11-23 | Outpatient (CLI) | payer SELFPAY ==
[~2018-11-23] MED LIST: Sodium Chloride 0.9% 15 ML NEB ONE
== END ==
LOC: WCC 09:00
PROVIDERS: ATTEND Family Medicine
DX: T81.49XA Infection following a procedure, other surgical site, initial encounter (principal); T81.44XA Sepsis following a procedure, initial encounter; L03.116 Cellulitis of left lower limb; Z79.4 Long term (current) use of insulin; T87.89 Other complications of amputation stump
CPT/HCPCS: A4218

== ENCOUNTER 2018-11-30 14:59 | Outpatient (CLI) | payer SELFPAY ==
[2018-11-30] MEDS ORDERED: Sodium Chloride 0.9% 15 ML NEB ONE (15:00)
== END 2018-11-30 15:00 | disposition home or self-care (01) ==
LOC: WCC 14:59
PROVIDERS: ATTEND Family Medicine
DX: T81.89XD Other complications of procedures, not elsewhere classified, subsequent encounter (principal); Z89.512 Acquired absence of left leg below knee
CPT/HCPCS: 97605; A4218

== ENCOUNTER 2018-12-03 14:42 | Outpatient (CLI) | payer SELFPAY | END 2018-12-03 14:43 | disposition home or self-care (01) | LOC: WCC 14:42 | PROVIDERS: ATTEND Family Medicine | DX: T81.89XD Other complications of procedures, not elsewhere classified, subsequent encounter (principal); Z89.512 Acquired absence of left leg below knee | CPT/HCPCS: 97605; A4218 ==

== ENCOUNTER 2018-12-07 13:04 | Outpatient (CLI) | payer SELFPAY | END 2018-12-07 13:05 | disposition home or self-care (01) | LOC: WCC 13:04 | PROVIDERS: ATTEND Family Medicine | DX: T81.89XD Other complications of procedures, not elsewhere classified, subsequent encounter (principal); Z89.512 Acquired absence of left leg below knee | CPT/HCPCS: 97605; A4218 ==

== ENCOUNTER 2018-12-10 11:56 | Outpatient (CLI) | payer SELFPAY ==
[2018-12-10] MEDS ORDERED: Sodium Chloride 0.9% 15 ML NEB ONE (15:00)
== END 2018-12-10 11:57 | disposition home or self-care (01) ==
LOC: WCC 11:56
PROVIDERS: ATTEND Family Medicine
DX: T87.89 Other complications of amputation stump (principal); Z89.512 Acquired absence of left leg below knee
CPT/HCPCS: A4218

== ENCOUNTER 2018-12-13 14:22 | Outpatient (CLI) | payer SELFPAY ==
[2018-12-13] MEDS ORDERED: Sodium Chloride 0.9% 15 ML NEB ONE (17:01)
== END 2018-12-13 14:23 | disposition home or self-care (01) ==
LOC: WCC 14:22
PROVIDERS: ATTEND Family Medicine
DX: T81.89XD Other complications of procedures, not elsewhere classified, subsequent encounter (principal); Z89.512 Acquired absence of left leg below knee
CPT/HCPCS: 97605; A4218

== ENCOUNTER 2018-12-16 15:28 | Outpatient (CLI) | payer SELFPAY ==
[~2018-12-16 15:28] MED LIST changes: +Lidocaine 2% PF 100 mg/5 ml Syringe ONE
--- NOTE | 2018-12-16 15:37 | HP ---
HISTORY OF PRESENT ILLNESS: Mr. Shankar Crowell is a very pleasant 33-year-old gentleman, who presents to the Wound Center for evaluation of a wound of his left ulqwq-enc-ooqh amputation stump subsequent to incision and drainage of the left ewpsd-ecv-vxud amputation stump on 11/16/[address] Ketan Ivan. Negative pressure therapy was initiated subsequent to surgery and upon discharge from [facility], the patient was referred to the Wound Center for assistance with dressing changes of the wound VAC. The patient was discharged to home on Augmentin 500/125 one p.o. b.i.d. x10 days, which he completed taking as prescribed. The patient has no complaints today. He denies any fever or chills. PAST MEDICAL HISTORY: 1. Diabetes mellitus. 2. Chronic kidney disease, stage 3. 3. Hypertension. PAST SURGICAL HISTORY: 1. Left hcmfv-lpe-ywge amputation in 2017. 2. Teeth extraction. 3. Pelvic surgery in 2016 after a fall. 4. Left lower leg surgery in 2016 after fall. 5. Right eye surgery for diabetic retinopathy. 6. Incision and drainage of left yzpyp-gok-heyl amputation stump on 11/16/2018 as per HPI. MEDICATIONS: 1. Lantus. 2. Humalog. ALLERGIES: THE PATIENT STATES HE IS ALLERGIC TO MUSHROOMS. SOCIAL HISTORY: Social history is significant for tobacco use of approximately 1 pack of cigarettes per day since age 14. The patient denies any history of EtOH use. FAMILY HISTORY: Family history is negative for diabetes mellitus or coronary artery disease. PHYSICAL EXAMINATION: VITAL SIGNS: Temperature 98.2, pulse 97, respirations 19, and blood pressure 147/78. Accu-Chek 201. GENERAL: A 33-year-old gentleman, sitting on chair in examination room, in no acute distress. HEENT: Normocephalic and atraumatic. NECK: No nuchal rigidity. CHEST: Clear to auscultation. CV: Regular rate and rhythm. ABDOMEN: Soft. EXTREMITIES: An ulceration of the distal left okzrv-lmh-ooqu amputation stump is present. The ulceration is located over the anterior aspect of the left uwwhs-ghe-otwv amputation stump. The dimensions of the wound are approximately 3.7 x 6.5 cm. Granulation tissue is present within the wound margins. Necrotic and nonviable tissue present within the wound margins was debrided with an excisional full-thickness debridement with the use of a curette. No purulent drainage is associated with the wound. No erythema of the skin surrounding the wound is present. No maceration of the skin of the periwound is noted. A popliteal pulse is palpable on the left. ASSESSMENT AND PLAN: 1. Ulceration of left yuxxd-qqh-gqqm amputation stump as described above. Negative pressure therapy will be continued with dressing changes of the wound VAC here in the Wound Center. No antibiotics will be prescribed today based upon the appearance of the wound. The patient will be seen by Dr. Ivan next week. I will see Mr. Crowell as needed after his evaluation by General Surgery. The patient understands and is in agreement with the preceding treatment plan. 2. Diabetes mellitus. The patient's Accu-Chek in clinic today is 201. The patient has been told that for optimal wound healing, his blood glucoses should remain below 150. 3. Chronic kidney disease, stage 3. 4. Hypertension. Job ID: [id number]
== END 2018-12-16 15:29 | disposition home or self-care (01) ==
LOC: WCC 15:28
PROVIDERS: ATTEND Family Medicine
DX: T87.89 Other complications of amputation stump (principal); I12.9 Hypertensive chronic kidney disease with stage 1 through stage 4 chronic kidney disease, or unspecified chronic kidney disease; E11.22 Type 2 diabetes mellitus with diabetic chronic kidney disease; N18.3 Chronic kidney disease, stage 3 (moderate)
CPT/HCPCS: 11042; 11045; 99203; A4218; G0463; J2001

== ENCOUNTER 2018-12-21 13:31 | Outpatient (CLI) | payer SELFPAY ==
[2018-12-21] MEDS ORDERED: Sodium Chloride 0.9% 15 ML NEB ONE (15:56)
== END 2018-12-21 13:32 | disposition home or self-care (01) ==
LOC: WCC 13:31
PROVIDERS: ATTEND Family Medicine
DX: T81.89XD Other complications of procedures, not elsewhere classified, subsequent encounter (principal); Z89.512 Acquired absence of left leg below knee
CPT/HCPCS: A4218

== ENCOUNTER 2018-12-27 14:29 | Outpatient (CLI) | payer SELFPAY ==
[2018-12-27] MEDS ORDERED: Sodium Chloride 0.9% 15 ML NEB ONE (18:00)
== END 2018-12-27 14:30 | disposition home or self-care (01) ==
LOC: WCC 14:29
PROVIDERS: ATTEND Family Medicine
DX: Z47.81 Encounter for orthopedic aftercare following surgical amputation (principal); Z89.512 Acquired absence of left leg below knee
CPT/HCPCS: 97605; A4218

== ENCOUNTER 2019-01-06 11:44 | Outpatient (CLI) | payer MEDICARE ==
--- NOTE | 2019-01-06 14:08 | PRG ---
DATE OF SERVICE: 01/06/2019 HISTORY: Mr. Shankar Crowell is a very pleasant 33-year-old gentleman, who presents to the Wound Center for evaluation of a wound of his left wvtws-ywj-mddf amputation stump subsequent to incision and drainage of the left gjhwd-nlb-ojuq amputation stump on 11/16/[address] Ketan Ivan. Negative pressure therapy was initiated subsequent to surgery and upon discharge from [facility], the patient was referred to the Wound Center for assistance with dressing changes of the wound VAC. The patient was discharged to home on Augmentin 500/125 one p.o. b.i.d. x10 days, which he completed taking as prescribed. The patient has completed a course of negative pressure therapy and is now performing dressing changes as per Dr. Ivan. The patient has no other complaints today. He denies any fever or chills. PHYSICAL EXAMINATION: VITAL SIGNS: Temperature 98.0, pulse 93, respirations 17, blood pressure 186/88. Accu-Chek 102. EXTREMITIES: An ulceration of the distal left lbcof-ihn-wzyo amputation stump is present. The ulceration is located over the anterior aspect of the left bmwxm-orz-awhl amputation stump. The dimensions of the wound are approximately 2.2 x 3.9 cm. The dimensions of the wound at the time of the patient's visit on 12/16/2018 were approximately 3.7 x 6.5 cm. Granulation tissue is present within the wound margins. Necrotic and nonviable tissue present within the wound margins was debrided with an excisional full-thickness debridement with the use of a curette. No purulent drainage is associated with the wound. No erythema of the skin surrounding the wound is present. No maceration of the skin of the periwound is noted. ASSESSMENT AND PLAN: 1. Ulceration of left cmqom-lvt-dwws amputation stump as described above. Dressing changes of Promogran will be initiated today. These dressing changes are to be performed on a daily basis after cleansing and irrigation. The patient will be performing his own dressing changes. I will see Mr. Crowell again in 1 week. The patient states he has a followup appointment with Dr. Ivan in 2 weeks. 2. Diabetes mellitus. The patient's Accu-Chek in clinic today is 102. The patient has been reminded that for optimal wound healing, his blood glucoses should remain below 150. 3. Chronic kidney disease stage 3. 4. Hypertension. Job ID: [id number]
== END 2019-01-06 11:45 | disposition home or self-care (01) ==
LOC: WCC 11:44
PROVIDERS: ATTEND Family Medicine
DX: T87.89 Other complications of amputation stump (principal); E11.622 Type 2 diabetes mellitus with other skin ulcer; L97.929 Non-pressure chronic ulcer of unspecified part of left lower leg with unspecified severity; I12.9 Hypertensive chronic kidney disease with stage 1 through stage 4 chronic kidney disease, or unspecified chronic kidney disease; E11.22 Type 2 diabetes mellitus with diabetic chronic kidney disease; N18.3 Chronic kidney disease, stage 3 (moderate); Z89.512 Acquired absence of left leg below knee
CPT/HCPCS: A4218; J2001

== ENCOUNTER 2019-01-13 11:18 | Outpatient (CLI) | payer MEDICARE ==
--- NOTE | 2019-01-13 12:23 | PRG ---
DATE OF SERVICE: 01/13/2019 SUBJECTIVE HISTORY: Mr. Shankar Crowell is a very pleasant 33-year-old gentleman, who presents to the Wound Center for evaluation of a wound of his left uyxpi-vdk-qobt amputation stump subsequent to incision and drainage of the left kdfel-zqy-kgti amputation stump on 11/16/[address] Ketan Ivan. Negative pressure therapy was initiated subsequent to surgery and upon discharge from [facility], the patient was referred to the Wound Center for assistance with dressing changes of the wound VAC. The patient was discharged to home on Augmentin 500/125 one p.o. b.i.d. x10 days, which he completed taking as prescribed. The patient completed a course of negative pressure therapy. At the time of the patient's visit on 01/06/2019, the patient was placed on dressing changes of Promogran, which he has been receiving on a daily basis after cleansing and irrigation as prescribed. The patient has no other complaints today. He denies any fever or chills. PHYSICAL EXAMINATION: VITAL SIGNS: Temperature 98.2, pulse 85, respirations 16, and blood pressure 199/97. Accu-Chek 157. EXTREMITIES: An ulceration of the distal left utcmi-axj-kcvn amputation stump is present. The ulceration is located over the anterior aspect of the left zguok-drl-fajn amputation stump. The dimensions of the wound are approximately 3.0 x 1.9 cm. The dimensions of the wound at the time of the patient's visit on 01/06/2019 were approximately 2.2 x 3.9 cm. Granulation tissue is present within the wound margins. Necrotic and nonviable tissue present within the wound margins is debrided with an excisional full-thickness debridement with the use of a curette. No purulent drainage is associated with the wound. No erythema of the skin surrounding the wound is present. No maceration of the skin of the periwound is noted. ASSESSMENT AND PLAN: 1. Ulceration of left ldhfc-cjl-tiko amputation stump as described above. Dressing changes of Promogran will be continued on a daily basis after cleansing and irrigation. The patient will continue to perform his own dressing changes. The patient has a followup appointment with Dr. Ivan in 1 week. I will see Mr. Crowell again in 2 weeks. 2. Diabetes mellitus. The patient's Accu-Chek in clinic today is 157. The patient has been reminded that for optimal wound healing his blood glucoses should remain below 150. 3. Chronic kidney disease stage 3. 4. Hypertension. Job ID: [id number]
[2019-01-13] MEDS ORDERED: Sodium Chloride 0.9% 15 ML NEB ONE (16:27)
[2019-01-13] MEDS ORDERED: Lidocaine 2% PF 100 mg/5 ml Syringe ONE (16:27)
== END 2019-01-13 11:19 | disposition home or self-care (01) ==
LOC: WCC 11:18
PROVIDERS: ATTEND Family Medicine
DX: T87.9 Unspecified complications of amputation stump (principal); I12.9 Hypertensive chronic kidney disease with stage 1 through stage 4 chronic kidney disease, or unspecified chronic kidney disease; E11.22 Type 2 diabetes mellitus with diabetic chronic kidney disease; N18.3 Chronic kidney disease, stage 3 (moderate)
CPT/HCPCS: 11042; A4218; J2001

== ENCOUNTER 2019-01-27 11:42 | Outpatient (CLI) | payer MEDICARE ==
--- NOTE | 2019-01-27 12:24 | PRG ---
DATE OF SERVICE: 01/27/2019 HISTORY: Mr. Shankar Crowell is a very pleasant 33-year-old gentleman, who presents to the Wound Center for evaluation of a wound of his left vjdjr-alk-dbew amputation stump subsequent to incision and drainage of the left tzurl-bue-ankp amputation stump on 11/16/[address] Ketan Ivan. Negative pressure therapy was initiated subsequent to surgery and upon discharge from [facility], the patient was referred to the Wound Center for assistance with dressing changes of the wound VAC. The patient was discharged to home on Augmentin 500/125 one p.o. b.i.d. x10 days, which he completed taking as prescribed. The patient completed a course of negative pressure therapy. At the time of the patient's visit on 01/06/2019, the patient was placed on dressing changes of Promogran, which he has been receiving on a daily basis after cleansing and irrigation as prescribed. The patient has no other complaints today. He denies any fever or chills. PHYSICAL EXAMINATION: VITAL SIGNS: Temperature 98.2, pulse 88, respirations 18, and blood pressure 174/80. Accu-Chek 97. EXTREMITIES: An ulceration of the distal left mgzts-fnw-kvpj amputation stump is present. The ulceration is located over the anterior aspect of the left reuij-ttb-toxv amputation stump. The dimensions of the wound are approximately 2.4 x 1.2 cm. The dimensions of the wound at the time of the patient's visit on 01/13/2019 were approximately 3.0 x 1.9 cm. Granulation tissue is present within the wound margins. Necrotic and nonviable tissue present within the wound margins was debrided with an excisional full-thickness debridement with the use of a curette. Callus and desiccated tissue at the periphery of the wound were excised with the use of scissors. No purulent drainage is associated with the wound. No erythema of the skin surrounding the wound is present. No maceration of the skin of the periwound is noted. ASSESSMENT AND PLAN: 1. Ulceration of left xntvn-trn-amku amputation stump as described above. Dressing changes of Promogran will be continued on a daily basis after cleansing and irrigation. The patient will continue to perform his own dressing changes. I will see Mr. Crowell again in 1 week. The patient has a followup appointment with Dr. Ivan in 3 weeks. 2. Diabetes mellitus. The patient's Accu-Chek in clinic today is 97. The patient has been reminded that for optimal wound healing, his blood glucoses should remain below 150. 3. Chronic kidney disease, stage 3. 4. Hypertension. Job ID: [id number]
[2019-01-27] MEDS ORDERED: Sodium Chloride 0.9% 15 ML NEB ONE (15:00)
[2019-01-27] MEDS ORDERED: Lidocaine 2% PF 100 mg/5 ml Syringe ONE (15:00)
== END 2019-01-27 11:43 | disposition home or self-care (01) ==
LOC: WCC 11:42
PROVIDERS: ATTEND Family Medicine
DX: T87.89 Other complications of amputation stump (principal); E11.622 Type 2 diabetes mellitus with other skin ulcer; L97.929 Non-pressure chronic ulcer of unspecified part of left lower leg with unspecified severity; I12.9 Hypertensive chronic kidney disease with stage 1 through stage 4 chronic kidney disease, or unspecified chronic kidney disease; E11.22 Type 2 diabetes mellitus with diabetic chronic kidney disease; N18.3 Chronic kidney disease, stage 3 (moderate); Z89.512 Acquired absence of left leg below knee
CPT/HCPCS: 11042

== ENCOUNTER 2019-02-03 15:59 | Outpatient (CLI) | payer MEDICARE ==
--- NOTE | 2019-02-03 12:44 | PRG ---
DATE OF SERVICE: 02/03/2019 HISTORY: Mr. Shankar Crowell is a very pleasant 33-year-old gentleman, who presents to the Wound Center for evaluation of a wound of his left ymflo-cro-tkly amputation stump subsequent to incision and drainage of the left hucwn-mld-cncu amputation stump on 11/16/[address] Ketan Ivan. Negative pressure therapy was initiated subsequent to surgery and upon discharge from [facility], the patient was referred to the Wound Center for assistance with dressing changes of the wound VAC. The patient was discharged to home on Augmentin 500/125 one p.o. b.i.d. x10 days, which he completed taking as prescribed. The patient completed a course of negative pressure therapy and at the time of the patient's visit on 01/06/2019, the patient was placed on dressing changes of Promogran, which he has been receiving on a daily basis after cleansing and irrigation as prescribed. Mr. Crowell has no complaints today. He denies any fever or chills. PHYSICAL EXAMINATION: VITAL SIGNS: Temperature 98.1, pulse 95, respirations 21, and blood pressure 191/79. Accu-Chek 82. EXTREMITIES: An ulceration of the distal left eztgb-tzm-fprk amputation stump is present. The ulceration is located over the anterior aspect of the left wiffm-bsi-ejmo amputation stump. The dimensions of the wound are approximately 0.8 x 0.8 cm. The dimensions of the wound at the time of the patient's visit on 01/27/2019 were approximately 2.4 x 1.2 cm. Granulation tissue is present within the wound margins. Necrotic and nonviable tissue present within the wound margins was debrided with an excisional full-thickness debridement with the use of a curette. No purulent drainage is associated with the wound. No erythema of the skin surrounding the wound is present. No maceration of the skin of the periwound is noted. ASSESSMENT AND PLAN: 1. Ulceration of left xbntz-rvz-vqob amputation stump as described above. Dressing changes of Promogran will be continued on a daily basis after cleansing and irrigation. The patient will continue to perform his own dressing changes. The patient states that he is leaving for [place] the day after Thanks[place]. Mr. Crowell will therefore be discharged from clinic today with followup on a p.r.n. basis. The patient has been instructed to refrain from using his prosthesis until the ulceration of his left bplvm-emd-qrua amputation stump has healed completely. The patient understands and is in agreement with the preceding treatment plan. 2. Diabetes mellitus. The patient's Accu-Chek in clinic today is 82. The patient has been reminded that for optimal wound healing, his blood glucoses should remain below 150. 3. Chronic kidney disease, stage 3. 4. Hypertension. Job ID: [id number]
[2019-02-03] MEDS ORDERED: Sodium Chloride 0.9% 15 ML NEB ONE (17:06)
== END 2019-02-03 16:00 | disposition home or self-care (01) ==
LOC: WCC 15:59
PROVIDERS: ATTEND Family Medicine
DX: T87.89 Other complications of amputation stump (principal); I12.9 Hypertensive chronic kidney disease with stage 1 through stage 4 chronic kidney disease, or unspecified chronic kidney disease; E11.22 Type 2 diabetes mellitus with diabetic chronic kidney disease; N18.3 Chronic kidney disease, stage 3 (moderate)
CPT/HCPCS: A4218

== ENCOUNTER 2019-02-10 09:20 | Inpatient (IN) | payer MEDICARE ==
--- NOTE | 2019-02-10 09:51 | RAD ---
Chest AP view INDICATION: Coughing and throwing up blood COMPARISON: None FINDINGS: Lungs:There are airspace opacities and areas of reticular nodularity involving both lungs in a perihi lar and central distribution. Cardiac silhouette:The cardiomediastinal silhouette appears within normal limits. Pulmonary vasculature:Normal Pleural spaces:No pleural effusion or pneumothorax is demonstrated. Upper abdomen:No abnormality seen. Osseous structures: No acute osseous abnormality. Additional findings:None. IMPRESSION: Prominent perihilar reticular nodularity and airspace opacities suspicious for bronchopne umonia. No pleural effusion or pneumothorax demonstrated.
[2019-02-10 10:09] LABS: #Basophils 0.1 thou/uL (0.0-0.2); #Eosinphils 0.5 thou/uL (0.0-0.7); #Lymphocytes 1.8 thou/uL (1.20-3.40); #Monocytes 0.6 thou/uL (0.11-0.59); #Neutrophils 7.7 thou/uL (1.40-6.50); %Eosinophils 4.9 % (0.0-10.0); %Lymphocytes 16.5 % (21.0-51.0); %Monocytes 5.9 % (0.0-10.0); %Neutrophils 71.7 % (42.0-75.0); Hemoglobin 9.5 g/dL (14.0-18.0); Mean Corpuscular HGB CONC 31.9 g/dL (32.0-36.0); Mean Corpuscular Hemoglobin 28.4 pg (27.0-31.0); Mean Corpuscular Volume 88.9 fL (78.0-98.0); Mean Platelet Volume 8.7 fL (7.4-10.4); Platelet Count 286 thou/uL (130-400); RBC Distribution Width 13.8 % (11.5-14.5); Red Blood Cell (RBC) Count 3.36 mill/uL (4.70-6.10); White Blood Cell (WBC) Count 10.7 thou/uL (4.8-10.8)
[2019-02-10 10:32] LABS: ALT (SGPT) 15 U/L (8-55); AST (SGOT) 16 U/L (5-34); Albumin 3.2 g/dL (3.5-5.0); Alkaline Phosphatase 86 U/L (40-110); Anion Gap 11 mmol/L (10-20); BUN (Urea Nitrogen) 24 mg/dL (8.9-20.6); Bilirubin, Total 0.2 mg/dL (0.2-1.2); Calc. Creatinine Clearance 0 mL/min (70-130); Calcium 8.4 mg/dL (7.8-10.44); Carbon Dioxide 26 mmol/L (22-29); Chloride 110 mmol/L (98-107); Estimated GFR-MDRD 52; Globulin 2.8 g/dL (2.4-3.5); Glucose 104 mg/dL (70-105); Potassium 4.1 mmol/L (3.5-5.1); Sodium 143 mmol/L (136-145)
[2019-02-10 11:03] LABS: CKMB 2.7 ng/mL (0-6.6)
[2019-02-10] MEDS ORDERED: Iopamidol 370 76% 100 ML VIAL ONE (11:46)
[2019-02-10] MEDS ORDERED: Aspirin Chewable 81 MG TAB ONE (11:48)
[2019-02-10] MEDS ORDERED: cefTRIAXone\\ROCEPHIN 1 GM VIAL ONE (11:48)
[2019-02-10] MEDS ORDERED: Azithromycin 500 MG VIAL ONE (11:48)
--- NOTE | 2019-02-10 12:54 | CT ---
CTA chest with contrast: Multiple axial tomograms obtained through the chest following a pulmonary angiogram protocol with mul tiplanar reconstruction and 3-D postprocessing. INDICATIONS: Cough and shortness of breath. Hemoptysis. Chest x-ray shows bilateral infiltrates. COMPARISON: None FINDINGS: Pulmonary arteries show adequate opacification. No evidence of pulmonary embolus identified. Thoracic aorta is unremarkable. No evidence of dissection. Nonspecific mediastinal and hilar adenopathy is noted. Small bilateral pleural effusions. Focal areas of dense consolidation in both upper lobes. Groundglass opacity in the posterior lower lo bes. Images through the upper abdomen appear unremarkable. Soft tissues of the thorax appear unremarkable. Osseous structures of the thorax appear unremarkable. IMPRESSION: 1. No evidence of pulmonary embolus 2. Small to moderate bilateral pleural effusions 3. Bilateral patchy alveolar infiltrates 4. Mediastinal and hilar adenopathy
[2019-02-10] MEDS ORDERED: Ondansetron PF 4 MG/2 ML Vial ONE (13:46)
[2019-02-10 13:48] LABS: Amphetamine Not Detected (NotDetected); Barbiturates Screen Not Detected (NotDetected); Benzodiazepine Screen Not Detected (NotDetected); Cocaine Metabolite Screen Not Detected (NotDetected); Medtox Control Line Valid? VALID (VALID); Medtox Reader # READER 4; Methadone Not Detected (NotDetected); Methamphetamine Not Detected (NotDetected); Opiate Screen Not Detected (NotDetected); Oxycodone Screen Not Detected (NotDetected); Phencyclidine (PCP) Not Detected (NotDetected); THC/Cannabinoid Screen Not Detected (NotDetected); Tricyclic Screen Not Detected (NotDetected)
[2019-02-10] MEDS ORDERED: Nitroglycerin 2% Ointment 1 INCH/1 GM Packet ONE (13:56)
[2019-02-10 14:04] LABS: Bacteria/HPF None Seen HPF (None Seen); Bilirubin Negative (Negative); Blood, Urine Negative (Negative); Clarity Clear (Clear); Glucose, Urine (Dipstick) 100 mg/dL (Negative); Leukocyte Negative Leu/uL (Negative); Nitrite Negative (Negative); Protein, Urine (Dipstick) 200 mg/dL (Neg-Trace); RBC/HPF 0-3 HPF (0-3); Squamous Epithelial None Seen HPF (0-3); Urobilinogen Normal mg/dL (Less than 2); WBC/HPF 0-3 HPF (0-3)
[2019-02-10] MEDS ORDERED: Senokot S 8.6-50 MG TAB PO PRN (14:27)
[2019-02-10] MEDS ORDERED: Benzonatate 100 MG CAP PO PRN (14:33)
[2019-02-10] MEDS ORDERED: hydrALAZINE 20 MG/ML VIAL SLOW IVP PRN (14:33)
[2019-02-10] MEDS ORDERED: Dextrose 5% in Water 1,000 ML IV PRN (14:36)
[2019-02-10] MEDS ORDERED: Dextrose 50% Abboject 50 ML SYRINGE SLOW IVP PRN (14:36)
[2019-02-10] MEDS: Sodium Chloride 0.9% 1,000 ML IV SCH (16:06)
--- NOTE | 2019-02-10 16:20 | HP ---
This is IAN Dow dictating a report for Gabriel Pineda MD. PRIMARY CARE PHYSICIAN: None. CHIEF COMPLAINT: Shortness of breath, blood-tinged sputum. HISTORY OF PRESENT ILLNESS: Mr. Crowell is a 33-year-old man, who reported to the emergency room today with some dyspnea, coughing up blood-tinged sputum started this morning. Reports that he has a productive cough, but not particularly sick. He reports that he has some chest pressure as if someone is sitting on his chest, which makes him feel more dyspneic, especially when he lays down. Reports history of stage 3 kidney disease. He is a type 1 diabetic and is insulin dependent. He reports that he has been on an insulin pump in the past, but due to insurance concerns, he is on sliding scale and long-acting insulin daily. He has also has a past medical history pertinent for high blood pressure and ekpsq-lmb-wlds left amputation due to his diabetes. He still smokes. Denies fever. Does report chills. While in the emergency room, the patient's lab values with a white blood cell count of 10.7, hemoglobin 9.5, hematocrit is 29.8, and platelet count is 286. Coag, D-dimer of 3.8. Chemistry; chloride 110, BUN 24, creatinine at 1.53, which is at baseline for the patient, and glucose 104. Troponin, first troponin was 0.922. Urine is unremarkable other than some protein and glucose. Toxicology was negative. EKG in the emergency room shows sinus tach, beats per minute 109, ST wave abnormality nonspecific. Because of the patient's D-dimer, the patient was sent for a CTA of the chest and thorax, which showed no evidence of pulmonary emboli, uoxiz-kq-jhcoctny bilateral pleural effusions, bilateral patchy alveolar infiltrates to the mediastinal and hilar adenopathy. The patient was given Rocephin and azithromycin in the emergency room and we will continue this. The patient admitted to the telemetry unit for further management. 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 CURRENT MEDICATIONS: Takes; 1. Lantus. 2. Humalog sliding scale. ALLERGIES: ALLERGIC TO MUSHROOMS. PERSONAL HISTORY: Smokes a pack a day. Denies any alcohol or drug use. Lives with his fiancee. Has 3 children. FAMILY HISTORY: Noncontributory. He does have a daughter, who is type 1 diabetic. REVIEW OF SYSTEMS: The patient reports chills. Reports shortness of breath. Reports blood-tinged sputum, dyspnea on exertion, orthopnea, and chest pain. Reports poor appetite and some nausea. Denies any diarrhea or abdominal pain. Denies any dysuria. All systems are reviewed and are negative unless mentioned above or in HPI. PHYSICAL EXAMINATION: VITAL SIGNS: Blood pressure 157/95, pulse is 101, respiratory rate is 22, temp is 98.2, and pO2 saturations are 97% on room air. CONSTITUTIONAL: The patient appears ill, is in no apparent distress. He is alert and oriented to person, place, and time. HEENT: Head is atraumatic and normocephalic. Eyes; pupils are equal, round, and reactive to light. Extraocular muscles are intact. ENT; mouth exam is normal. Mucous membranes are moist. NECK: Normal range of motion. Trachea is midline. RESPIRATORY: Chest, diffuse rhonchi. Chest expansion is equal. CARDIOVASCULAR: Heart rate, regular rhythm. Heart sounds are normal. ABDOMEN: Nontender. Bowel sounds are heard. BACK: Normal range of motion. No CVA tenderness. EXTREMITIES: Upper extremity; normal inspection, normal range of motion. Radial pulses are normal. Lower extremity; normal inspection. The patient has a BKA on the left. Pedal pulse on the right normal. NEURO: The patient is oriented to person, place, and time. Speech is normal. SKIN: Warm and dry, normal in color next. ASSESSMENT AND PLAN: 1. Pneumonia. We will continue the Rocephin and the azithromycin as started in the ER. A gentle hydration with normal saline at 75 mL per hour. Order some Tessalon Perles and guaifenesin as needed for cough, DuoNeb q.6 hours. 2. Non-ST elevation myocardial infarction, most likely due to the pneumonia demand. We will trend troponins. Aspirin in the morning. Ask Cardiology to consult. 3. History of hypertension. We will restart home medications as needed. 4. Diabetes, type 1. Sliding scale. We will add home Lantus back once reconciled. 5. Deep venous thrombosis and gastrointestinal prophylaxis have been started. 6. Case discussed with Dr. Pineda, who agrees with plan. Job ID: [id number]
[2019-02-10 16:57] LABS: Critical Call Chem Troponin I RESULT DECREASING
[2019-02-10 17:16] LABS: CKMB 2.2 ng/mL (0-6.6)
[2019-02-10] MEDS: HumaLOG 300 UNITS/3 ML VIAL SC PRN (17:26)
[2019-02-10] MEDS: Enoxaparin Sodium 80 MG/0.8 ML SYRINGE SC SCH (20:19)
[2019-02-10] MEDS: Famotidine 20 MG TAB PO SCH (20:19)
[2019-02-10 20:29] LABS: CKMB 2.4 ng/mL (0-6.6)
[2019-02-10] MEDS: Ondansetron PF 4 MG/2 ML Vial IVP PRN (20:57)
[2019-02-10] MEDS ORDERED: HumaLOG 300 UNITS/3 ML VIAL SC PRN (23:47)
[2019-02-11] MEDS: Ondansetron PF 4 MG/2 ML Vial IVP PRN ×4 (02:57→20:24)
[2019-02-11] MEDS: Diabetic Tussin 200 MG/10 ML UDCUP PO PRN ×2 (03:01→22:42)
[2019-02-11] MEDS: Sodium Chloride 0.9% 1,000 ML IV SCH (03:04)
[2019-02-11] MEDS: Acetaminophen 325 MG TAB PO PRN ×2 (04:00→14:15)
[2019-02-11 04:13] LABS: #Basophils 0.1 thou/uL (0.0-0.2); #Eosinphils 0.3 thou/uL (0.0-0.7); #Lymphocytes 1.7 thou/uL (1.20-3.40); #Monocytes 0.8 thou/uL (0.11-0.59); %Basophils 0.6 % (0.0-1.0); %Eosinophils 2.8 % (0.0-10.0); %Lymphocytes 13.9 % (21.0-51.0); %Monocytes 6.7 % (0.0-10.0); Hemoglobin 8.3 g/dL (14.0-18.0); Mean Corpuscular HGB CONC 32.6 g/dL (32.0-36.0); Mean Corpuscular Hemoglobin 28.5 pg (27.0-31.0); Mean Corpuscular Volume 87.2 fL (78.0-98.0); Mean Platelet Volume 8.6 fL (7.4-10.4); Platelet Count 230 thou/uL (130-400); RBC Distribution Width 13.5 % (11.5-14.5); Red Blood Cell (RBC) Count 2.91 mill/uL (4.70-6.10); White Blood Cell (WBC) Count 11.9 thou/uL (4.8-10.8)
[2019-02-11 04:40] LABS: ALT (SGPT) 12 U/L (8-55); AST (SGOT) 9 U/L (5-34); Albumin 2.9 g/dL (3.5-5.0); Alkaline Phosphatase 74 U/L (40-110); Anion Gap 9 mmol/L (10-20); BUN (Urea Nitrogen) 31 mg/dL (8.9-20.6); Bilirubin, Total 0.2 mg/dL (0.2-1.2); Calc. Creatinine Clearance 60 mL/min (70-130); Calcium 7.9 mg/dL (7.8-10.44); Carbon Dioxide 23 mmol/L (22-29); Chloride 110 mmol/L (98-107); Estimated GFR-MDRD 42; Globulin 2.7 g/dL (2.4-3.5); Glucose 242 mg/dL (70-105); Potassium 4.5 mmol/L (3.5-5.1); Protein, Total 5.6 g/dL (6.0-8.3); Sodium 137 mmol/L (136-145)
[2019-02-11] MEDS: Famotidine 20 MG TAB PO SCH (08:37)
[2019-02-11] MEDS: Insulin Glargine 20 UNITS in Pre-Filled Syringe 1 EACH SC SCH ×2 (08:38→20:33)
[2019-02-11] MEDS: Enoxaparin Sodium 80 MG/0.8 ML SYRINGE SC SCH ×2 (08:38→20:31)
[2019-02-11] MEDS: HumaLOG 300 UNITS/3 ML VIAL SC PRN ×3 (08:42→17:16)
[2019-02-11] MEDS ORDERED: Non-Formulary Item 1 EACH (Insulin Glargine,Hum.Rec.Anlog [Lantus Solostar] 20 UNIT) SC SCH (09:00)
[2019-02-11] MEDS ORDERED: Aspirin 325 mg Enteric Coated Tablet PO SCH (09:00)
[2019-02-11] MEDS ORDERED: Aspirin 81 mg Enteric Coated Tablet PO SCH (10:30)
[2019-02-11] MEDS ORDERED: Clopidogrel Bisulfate 300 MG TAB PO SCH (11:00)
[2019-02-11] MEDS ORDERED: Nitroglycerin 2% Ointment 1 INCH/1 GM Packet TOP SCH (11:00)
--- NOTE | 2019-02-11 11:05 | PDOC.HOSPP ---
- Subjective Encounter Date: 02/11/19 Encounter Time: 11:03 Subjective: Pt. reports chest pressure of 8/10 in the middle of the chest like someone is sitting on his chest for 2-3 days without any radiation. Worse with exertion. Associated with orthopnea but no PND x 2 day. Has new onset hemoptysis. Has chills at home. No wheezing. Denies N/V/D/C. No abd. pain. Reports weight gain of 10 lbs x 3 months due to being laid off of work. Reports leg swelling x 2 days. - Objective Vital Signs & Weight: Vital Signs (12 hours) Temp Pulse Resp BP Pulse Ox 02/11/19 08:19 98.0 F 89 18 141/77 H 96 02/11/19 07:00 87 14 98 02/11/19 06:00 98.7 F 02/11/19 03:40 101.2 F H 108 H 20 138/72 97 02/11/19 00:25 98.7 F 107 H 20 165/84 H 99 02/11/19 00:16 88 16 96 Weight Weight 165 lb 6.4 oz I&O: 02/10/19 02/11/19 02/12/19 06:59 06:59 06:59 Intake Total 1387 Balance 1387 Result Diagrams: 02/11/19 03:59 02/11/19 03:59 Additional Labs: Accuchecks 02/11/19 02/10/19 02/10/19 05:50 20:33 17:02 POC Glucose 227 H 297 H 316 H 02/10/19 11:32 POC Glucose 50 L* Radiology Reviewed by me: Yes (CT chest with air bronchograms B/L and B/L pleural effusions; Airspace opac) EKG Reviewed by me: Yes (S.tach; ST depressions II, aVF; T-inversions V5-6) Hospitalist ROS - Medication Medications: Active Medications Generic Name Dose Route Start Last Admin Trade Name Freq PRN Reason Stop Dose Admin Acetaminophen 650 mg 02/10/19 14:27 02/11/19 04:00 Tylenol PO 650 mg Q4H PRN Administration Headache/Fever/Mild Pain (1-3) Guaifenesin 200 mg 02/10/19 14:33 02/11/19 03:01 Robitussin Sf PO 200 mg Q4H PRN Administration Cough Insulin Glargine 20 units/ 0.2 mls @ 0 mls/hr 02/11/19 09:00 02/11/19 08:38 Miscellaneous Medication SC 0.2 mls BID WALTER Administration Insulin Human Lispro 0 units 02/10/19 14:43 02/11/19 08:42 Humalog SC 3 unit .MILD SLIDING SCALE PRN Administration Mild Correctional Scale Ondansetron HCl 4 mg 02/10/19 20:52 02/11/19 08:41 Zofran IVP 4 mg Q6H PRN Administration Nausea/Vomiting - Exam General Appearance: ill appearing (in mild distress) Eye: PERRL, anicteric sclera ENT: normocephalic atraumatic, no oropharyngeal lesions Neck: supple, symmetric, no thyromegaly, no lymphadenopathy Heart: normal peripheral pulses Heart - other findings: tachycardia present; Systolic murmur Respiratory: normal chest expansion Respiratory - other findings: Bilateral bases with absent breath sounds; No wheezing; Not using accessory Gastrointestinal: soft, non-tender, non-distended, normal bowel sounds Psychiatric: normal affect, normal behavior, A&O x 3 Hosp A/P (1) NSTEMI (non-ST elevated myocardial infarction) Code(s): I21.4 - NON-ST ELEVATION (NSTEMI) MYOCARDIAL INFARCTION Status: Acute Plan: Change ASA to 81 mg PO daily Load plavix 300 mg. Then, 75 mg PO daily Nitroglycerin paste BID Cardio consulted ECHO performed this AM. Will follow results DC lovenox due to his CKD-3 Start heparin drip 12 hours after last lovenox dose Resume Toprol XL and adjust dose for optimal HR control Oxygen Morphine PRN High dose statin therapy Cycle troponins to peak May need eventual ischemia work up - [facility] vs stress test. Will defer to cardiology Total critical care time - 40 min (2) CHF (congestive heart failure) Code(s): I50.9 - HEART FAILURE, UNSPECIFIED Status: Acute Qualifiers: Heart failure type: unspecified Heart failure chronicity: acute Qualified Code(s): I50.9 - Heart failure, unspecified Plan: Has new onset orthopnea and hemoptysis Exam with reduced air entry bilateral bases CT chest personally reviewed - with bilateral pleural effusions and airspace opacities DC IVF Start IV lasix 40 mg BID Fluid and salt restriction ECHO done and results pending Cardiology consulted (3) Pneumonia Code(s): J18.9 - PNEUMONIA, UNSPECIFIED ORGANISM Status: Acute Qualifiers: Pneumonia type: due to unspecified organism Laterality: bilateral Lung location: unspecified part of lung Qualified Code(s): J18.9 - Pneumonia, unspecified organism Plan: Air bronchograms on CT chest bilaterally Fever overnight Continue rocephin Change azithromycin to doxycycline to avoid cardiac side effects Duonebs PRN (4) Sepsis Code(s): A41.9 - SEPSIS, UNSPECIFIED ORGANISM Status: Acute Qualifiers: Sepsis type: sepsis due to unspecified organism Sepsis acute organ dysfunction status: with acute organ dysfunction Severe sepsis acute organ dysfunction type: acute respiratory failure Severe sepsis shock status: without septic shock Plan: As above (5) Respiratory failure Code(s): J96.90 - RESPIRATORY FAILURE, UNSP, UNSP W HYPOXIA OR HYPERCAPNIA Status: Acute Qualifiers: Chronicity: acute Respiratory failure complication: hypoxia Qualified Code(s): J96.01 - Acute respiratory failure with hypoxia Plan: Related to pneumonia and new CHF and NSTEMI Oxygen supplementation (6) HTN (hypertension) Code(s): I10 - ESSENTIAL (PRIMARY) HYPERTENSION Status: Chronic Qualifiers: Hypertension type: essential hypertension Qualified Code(s): I10 - Essential (primary) hypertension Plan: Hold anti-HTN due to being on lasix Monitor BP Nitro paste (7) Tobacco abuse Code(s): Z72.0 - TOBACCO USE Status: Chronic Plan: Pt. states he quit 2 days ago No NRT due to active PA (8) DM type 1 (diabetes mellitus, type 1) Status: Chronic Qualifiers: Diabetes mellitus complication status: with kidney complications Diabetes mellitus complication detail: with chronic kidney disease Chronic kidney disease stage: stage 3 (moderate) Qualified Code(s): E10.22 - Type 1 diabetes mellitus with diabetic chronic kidney disease; N18.3 - Chronic kidney disease, stage 3 (moderate) Plan: Poor control with HA1C of 13.2 in 12/02 Repeat HA1C Continue basal insulin and SSI with diabetic diet Monitor sugars and adjust Need optimal control of his diabetes CKD-3 history Will consult nephrology At risk of ANIYAH as he received IV DYE for CTA yesterday and is started on lasix today May need LHC which increases risk of ANIYAH and dialysis Avoid nephrotoxic meds and hypotension - Plan plan discussed w/ family
[2019-02-11] MEDS ORDERED: Heparin 10,000 UNITS/ 10 ML VIAL SLOW IVP SCH (11:15)
[2019-02-11] MEDS ORDERED: Furosemide 40 MG/4 ML VIAL SLOW IVP SCH (11:30)
[2019-02-11 11:48] LABS: Hemoglobin A1c 8.5 % (4.0-6.0)
[2019-02-11 11:51] LABS: Hemoglobin 8.8 g/dL (14.0-18.0); Platelet Count 247 thou/uL (130-400)
[2019-02-11] MEDS ORDERED: Azithromycin 500 MG in Sodium Chloride 0.9% 250 ML 250 ML IVPB SCH (12:00)
[2019-02-11 12:05] LABS: ALT (SGPT) 10 U/L (8-55); AST (SGOT) 7 U/L (5-34); Alkaline Phosphatase 78 U/L (40-110); Anion Gap 12 mmol/L (10-20); BUN (Urea Nitrogen) 29 mg/dL (8.9-20.6); Bilirubin, Total 0.3 mg/dL (0.2-1.2); Calc. Creatinine Clearance 58 mL/min (70-130); Calcium 8.2 mg/dL (7.8-10.44); Carbon Dioxide 23 mmol/L (22-29); Chloride 109 mmol/L (98-107); Estimated GFR-MDRD 41; Globulin 2.8 g/dL (2.4-3.5); Glucose 230 mg/dL (70-105); Potassium 4.5 mmol/L (3.5-5.1); Protein, Total 5.8 g/dL (6.0-8.3); Sodium 139 mmol/L (136-145)
[2019-02-11 12:11] LABS: Troponin I 0.724 ng/mL (< 0.028)
[2019-02-11] MEDS: cefTRIAXone\\ROCEPHIN 1 GM in Sodium Chloride 0.9% 100 ML IVPB SCH (14:05)
[2019-02-11 15:23] LABS: Critical Call Chem Troponin I RESULT DECREASING
[2019-02-11] MEDS: Furosemide 40 MG/4 ML VIAL SLOW IVP SCH (16:05)
[2019-02-11] MEDS: Morphine 2 MG/ML SYRINGE SLOW IVP PRN ×2 (16:07→20:23)
[2019-02-11] MEDS: Nitroglycerin 2% Ointment 1 INCH/1 GM Packet TOP SCH ×2 (18:07→22:43)
[2019-02-11] MEDS ORDERED: Communication Order-Pharmacy FS SCH (18:30)
--- NOTE | 2019-02-11 19:08 | CON ---
DATE OF CONSULTATION: HISTORY OF PRESENT ILLNESS: Shankar Crowell is a 33-year-old white male with history of over 30 years of juvenile diabetes. He travels around with work and has only been taking his insulin. He has not been taking blood pressure medicines or his cholesterol medicines. Yesterday, he began noticing increasing shortness of breath, started to have some cough, productive of some blood-tinged sputum and decided to come to emergency room for further evaluation. Chest x-ray revealed probable pneumonia. He underwent CTA of the chest, which revealed no evidence of pulmonary embolism. There were small bilateral effusions. There were bilateral patchy alveolar infiltrates. He also states that with shortness of breath, he would have pressure in his chest. He is uncertain how long this lasts. Since he has been admitted, he has continued to intermittently have chest pressure, at times relieved with sublingual nitroglycerin. PAST MEDICAL HISTORY: Hypertension, diabetes, hypercholesterolemia. MEDICATIONS: Insulin. He has not been taking cholesterol or blood pressure medicines. ALLERGIES: NONE. PAST SURGICAL HISTORY: Surgery for a fractured left ankle and pelvis. Eventually, he had left ruahk-htp-ygdg amputation. SOCIAL HISTORY: He smokes 1 pack per day, but states he stopped 3 days ago. FAMILY HISTORY: Negative for coronary artery disease. REVIEW OF SYSTEMS: A 10-point review of systems is otherwise unremarkable. PHYSICAL EXAMINATION: VITAL SIGNS: Blood pressure 139/76, however, blood pressure on admission was as high as 200/95. Pulse 91. HEENT: PERRL. NECK: Supple. CHEST: Clear. CARDIAC: S1 and S2 are normal without any S3, S4, or murmurs. Carotid upstrokes normal without bruits. ABDOMEN: Normal bowel sounds without tenderness or organomegaly. EXTREMITIES: Revealed left zmqhf-ouj-cvfz amputation. There is 1+ pretibial edema on the right. NEUROLOGIC: Grossly intact. SKIN: Warm and dry. LABORATORY DATA: EKG revealed sinus tachycardia with poor R-wave progression, nonspecific ST and T-wave changes. Hemoglobin 8.3, hematocrit 25.4, white count 11,900. D-dimer 3.80. Sodium 139, potassium 4.5, chloride 109, carbon dioxide 23, BUN 29, creatinine 1.89. Troponin-I up to 0.907. Echocardiogram revealed ejection fraction of 45% to 50% with moderate mitral regurgitation, trace aortic insufficiency, and moderate to severe tricuspid regurgitation. Urine drug screen is negative. IMPRESSION: 1. Probable dui-PN-kklprezqq myocardial infarction with episodes of increased shortness of breath as well as chest pressure and elevated troponin-I. Certainly, this could be a type 2 yhk-RC-jxfealnve myocardial infarction. EKG will be repeated in the morning. 2. Possible pneumonia versus mild pulmonary edema. 3. Chronic kidney disease, having received a dye load from CT angiogram yesterday. 4. Mild left ventricular dysfunction, on echocardiogram. 5. Diabetes. 6. Hypertension, untreated. 7. Hypercholesterolemia, untreated. 8. Smoker until 3 days ago. 9. Noncompliance with medications. PLAN: EKG will be repeated in the morning. I will significantly increase his metoprolol and Nitropaste. I would not give Plavix at this time in case he has a surgical treated anatomy. He will be placed on Lovenox. He will be reassessed in 1 to 2 days and consideration will be given to cardiac catheterization depending upon his pulmonary status and his renal function. Risks of cardiac catheterization were discussed with the patient and his including , myocardial infarctions, strokes, limb loss, renal loss, vascular injury, blood transfusion, etc. We discussed stent placement and additional risk of CABG, myocardial infarction, , restenosis, stent thrombosis, etc. With his noncompliance with his medications, I would only place a bare-metal stent. Job ID: [id number]
[2019-02-11] MEDS ORDERED: Heparin 25,000 units/D5W 500 ML IVPB SCH (20:00)
[2019-02-11] MEDS: Atorvastatin Calcium 40 MG TAB PO SCH (20:31)
[2019-02-11] MEDS: Metoprolol Tartrate 50 MG TAB PO SCH (20:31)
[2019-02-11] MEDS ORDERED: Doxycycline 100 MG CAP PO SCH (21:00)
[2019-02-11] MEDS ORDERED: Enoxaparin Sodium 80 MG/0.8 ML SYRINGE SC SCH (21:00)
--- NOTE | 2019-02-11 21:48 | CON ---
DATE OF CONSULTATION: REASON FOR CONSULTATION: Elevated creatinine. HISTORY OF PRESENT ILLNESS: This is a very pleasant 33-year-old gentleman with a history of CKD, stage 3, presented to the hospital for some chest pain. The patient was noted to have a creatinine of 1.89, so I was consulted. Patient has a known CKD. His creatinine on admission was 1.5, increased to 1.8. The patient denies any nausea, vomiting, or chest pain. PAST MEDICAL HISTORY: Significant for hypertension, diabetes mellitus, history of fractured ankle and pelvis, history of left below-knee amputation. SOCIAL HISTORY: Noncontributory. No alcohol or drug use. FAMILY HISTORY: Negative for ESRD. ALLERGIES: REVIEWED. HOME MEDICATIONS: List reviewed. REVIEW OF SYSTEMS: A 15-point review of system was performed, negative, except for positives noted above. NECK: No swelling or lumps. NOSE: No epistaxis or discharge. EYES: No diplopia or pain. MUSCULOSKELETAL: No joint pain. NEUROPSYCHIATIC SYSTEMS: No suicidal ideation. No ideation. SKIN: Denies any rash or ulcer. CONSTITUTIONAL: No fever or chills. PHYSICAL EXAMINATION: GENERAL: Patient is awake, alert. VITAL SIGNS: Pulse 95, breathing 16, and blood pressure 139/76. GENERAL APPEARANCE AND MENTAL STATUS: Fair. HEAD/NECK: Normocephalic. Atraumatic. EYES: EOMI. No deformity. EARS: Clear. No ulcers. NOSE: Intact. No lesions. MOUTH: Clear. No discharge. THROAT: Clear. No exudate. LUNGS: Clear. No crackles. CARDIAC: S1, S2. No rub. ABDOMEN: Benign. Bowel sounds positive. GENITALIA/RECTUM: Conroy absent. BACK/EXTREMITIES: Edema 0+. LABORATORY: Hemoglobin is 8.8. Creatinine is 1.8. ASSESSMENT AND PLAN: 1. Acute kidney injury with chronic kidney disease, most likely due to progressive hypertension and diabetic disease. No indication for dialysis. We will order imaging. 2. Hypertension. Agree with current plan. 3. Anemia. Stable. 4. Proteinuria. Patient will need an SHELBI inhibitor. Medication based on GFR. I would recommend stopping doxycycline as this can cause to rise creatinine. Medication based on GFR. If appropriate. I will order renal imaging. Job ID: [id number]
[2019-02-11] MEDS ORDERED: Lidocaine 2% Viscous Solution 10 ML, Aluminum & Magnesium Hydroxide 30 ML SSW SCH (23:59)
[2019-02-12] MEDS: Ondansetron PF 4 MG/2 ML Vial IVP PRN ×4 (00:07→19:10)
[2019-02-12] MEDS: Morphine 2 MG/ML SYRINGE SLOW IVP PRN ×3 (00:12→22:17)
[2019-02-12] MEDS: Acetaminophen 325 MG TAB PO PRN (04:22)
[2019-02-12] MEDS: Nitroglycerin 2% Ointment 1 INCH/1 GM Packet TOP SCH ×3 (05:54→18:41)
[2019-02-12] MEDS: Furosemide 40 MG/4 ML VIAL SLOW IVP SCH ×2 (05:54→13:47)
[2019-02-12 06:16] LABS: #Eosinphils 0.6 thou/uL (0.0-0.7); #Lymphocytes 1.9 thou/uL (1.20-3.40); #Monocytes 0.8 thou/uL (0.11-0.59); #Neutrophils 8.8 thou/uL (1.40-6.50); %Basophils 0.3 % (0.0-1.0); %Eosinophils 5.1 % (0.0-10.0); %Lymphocytes 15.4 % (21.0-51.0); %Monocytes 6.3 % (0.0-10.0); %Neutrophils 72.9 % (42.0-75.0); Mean Corpuscular HGB CONC 32.4 g/dL (32.0-36.0); Mean Corpuscular Hemoglobin 28.4 pg (27.0-31.0); Mean Corpuscular Volume 87.7 fL (78.0-98.0); Mean Platelet Volume 8.6 fL (7.4-10.4); Platelet Count 244 thou/uL (130-400); RBC Distribution Width 13.5 % (11.5-14.5); Red Blood Cell (RBC) Count 2.82 mill/uL (4.70-6.10); White Blood Cell (WBC) Count 12.1 thou/uL (4.8-10.8)
[2019-02-12 06:42] LABS: ALT (SGPT) 10 U/L (8-55); AST (SGOT) 9 U/L (5-34); Albumin 2.9 g/dL (3.5-5.0); Alkaline Phosphatase 70 U/L (40-110); Anion Gap 11 mmol/L (10-20); BUN (Urea Nitrogen) 33 mg/dL (8.9-20.6); Bilirubin, Total 0.3 mg/dL (0.2-1.2); Calc. Creatinine Clearance 55 mL/min (70-130); Calcium 8.6 mg/dL (7.8-10.44); Carbon Dioxide 23 mmol/L (22-29); Cardiac Risk 4.8 (Less than 4.5); Chloride 108 mmol/L (98-107); Cholesterol 167 mg/dl (< 200 Desired); Estimated GFR-MDRD 38; Globulin 2.9 g/dL (2.4-3.5); Glucose 160 mg/dL (70-105); HDL Cholesterol 35 mg/dL (>60 Neg Risk); LDL Cholesterol, Calculated 112 mg/dL; Potassium 4.5 mmol/L (3.5-5.1); Protein, Total 5.8 g/dL (6.0-8.3); Sodium 137 mmol/L (136-145); Triglycerides 99 mg/dL (Less than 150)
--- NOTE | 2019-02-12 08:33 | ULT ---
RENAL ULTRASOUND: INDICATION: Elevated creatinine. COMPARISON: None. FINDINGS: The right kidney measures 4.7 x 4.3 x 4.7 cm. The left kidney measures 11.3 x 5.1 x 5.6 cm. No foca l renal lesion or hydronephrosis is evident. There are ureteral jets seen at the level of the bladde r. Prevoid bladder volume is 373 cc. IMPRESSION: No focal renal lesion or hydronephrosis. Moderate distention of the bladder. POS: BH
[2019-02-12] MEDS ORDERED: Clopidogrel Bisulfate 75 MG TAB PO SCH (09:00)
[2019-02-12] MEDS: Aspirin 81 mg Enteric Coated Tablet PO SCH (09:29)
[2019-02-12] MEDS: Insulin Glargine 22 UNITS in Pre-Filled Syringe 1 EACH SC SCH ×2 (09:29→20:39)
[2019-02-12] MEDS: Metoprolol Tartrate 50 MG TAB PO SCH ×2 (09:29→20:39)
[2019-02-12] MEDS: Enoxaparin Sodium 80 MG/0.8 ML SYRINGE SC SCH ×2 (09:30→20:39)
[2019-02-12] MEDS: Ipratropium Bromide 2.5 ml Neb NEB SCH ×4 (10:38→22:58)
--- NOTE | 2019-02-12 11:49 | PRG ---
DATE OF SERVICE: 02/12/2019 SUBJECTIVE: A 33-year-old gentleman, being seen for acute kidney injury. The patient denied nausea, vomiting, or chest pain. OBJECTIVE: CONSTITUTIONAL: The patient is awake and alert. VITAL SIGNS: Pulse 75. Breathing 16. Blood pressure 137/82. GENERAL APPEARANCE AND MENTAL STATUS: Fair. HEAD/NECK: Normocephalic. Atraumatic. EYES: EOMI. No deformity. EARS: Clear. No ulcers. NOSE: Intact. No lesions. MOUTH: Clear. No discharge. THROAT: Clear. No exudate. LUNGS: Clear. No crackles. CARDIAC: S1, S2. No rub. ABDOMEN: Benign. Bowel sounds positive. GENITALIA/RECTUM: Conroy absent. BACK/EXTREMITIES: Edema 0+. NEUROLOGICAL: Alert and motor intact. SKIN: LYMPHATICS: LABORATORY DATA: Hemoglobin 8. Creatinine 2.0. ASSESSMENT AND PLAN: 1. Chronic kidney disease, stage 3, stable. 2. Hypertension, stable. 3. Anemia, stable. 4. Proteinuria. Urine studies pending. 5. No indication for dialysis. Job ID: [id number]
[2019-02-12] MEDS: HumaLOG 300 UNITS/3 ML VIAL SC PRN (12:01)
--- NOTE | 2019-02-12 13:04 | RAD ---
SUPINE PORTABLE ABDOMEN: INDICATION: Nausea. FINDINGS: A large amount of stool is seen in the visualized colon. Nonspecific small bowel gas. No mass effec t or abnormal calcification. IMPRESSION: Prominent stool throughout the colon suggests constipation. POS: OFF
[2019-02-12] MEDS: cefTRIAXone\\ROCEPHIN 1 GM in Sodium Chloride 0.9% 100 ML IVPB SCH (13:48)
--- NOTE | 2019-02-12 14:43 | PDOC.HOSPP ---
- Subjective Encounter Date: 02/12/19 Encounter Time: 11:50 Subjective: Patient reports not having had a BM in 2 days and that he has some nausea. Seen by cardio and scheduled for [facility] on thursday. No fever or chills. States that his CP and SOB are better. - Objective Vital Signs & Weight: Vital Signs (12 hours) Temp Pulse Resp BP Pulse Ox 02/12/19 14:31 81 20 96 02/12/19 11:30 98.4 F 75 18 121/71 92 L 02/12/19 10:38 87 18 99 02/12/19 08:25 97 02/12/19 08:00 98.3 F 87 18 137/82 97 02/12/19 03:53 91 18 96 02/12/19 03:28 99.4 F 95 16 176/88 H 92 L Weight Weight 165 lb 6.4 oz I&O: 02/11/19 02/12/19 02/13/19 06:59 06:59 06:59 Intake Total 1387 1648 Output Total 9470 1250 Balance 5993 -902 -1250 Result Diagrams: 02/12/19 05:54 02/12/19 05:54 Additional Labs: Accuchecks 02/12/19 02/12/19 02/11/19 10:34 05:13 20:25 POC Glucose 150 H 174 H 150 H 02/11/19 16:43 POC Glucose 257 H Hospitalist ROS - Medication Medications: Active Medications Generic Name Dose Route Start Last Admin Trade Name Freq PRN Reason Stop Dose Admin Acetaminophen 650 mg 02/10/19 14:27 02/12/19 04:22 Tylenol PO 650 mg Q4H PRN Administration Headache/Fever/Mild Pain (1-3) Aspirin 81 mg 02/12/19 09:00 02/12/19 09:29 Ecotrin PO 81 mg DAILY WALTER Administration Atorvastatin Calcium 80 mg 02/11/19 21:00 02/11/19 20:31 Lipitor PO 80 mg HS WALTER Administration Enoxaparin Sodium 75 mg 02/11/19 21:00 02/12/19 09:30 Lovenox SC 75 mg 0900,2100 WALTER Administration Furosemide 40 mg 02/11/19 14:00 02/12/19 13:47 Lasix SLOW IVP 40 mg 0600,1400 WALTER Administration Guaifenesin 200 mg 02/10/19 14:33 02/11/19 22:42 Robitussin Sf PO 200 mg Q4H PRN Administration Cough Ceftriaxone Sodium 1 gm/ 100 mls @ 200 mls/hr 02/11/19 14:00 02/12/19 13:48 Sodium Chloride IVPB 100 mls Q24HR WALTER Administration Insulin Glargine 22 units/ 0.22 mls @ 0 mls/hr 02/12/19 09:00 02/12/19 09:29 Miscellaneous Medication SC 0.22 mls BID WALTER Administration Insulin Human Lispro 0 units 02/10/19 14:43 02/12/19 12:01 Humalog SC 2 unit .MILD SLIDING SCALE PRN Administration Mild Correctional Scale Ipratropium [place] 2.5 ml 02/12/19 10:30 02/12/19 14:31 Atrovent NEB 2.5 ml [id number] WALTER Administration Metoprolol Tartrate 50 mg 02/11/19 21:00 02/12/19 09:29 Lopressor PO 50 mg BID WALTER Administration Morphine Sulfate 2 mg 02/11/19 11:13 02/12/19 13:44 Morphine SLOW IVP 2 mg Q4H PRN Administration Moderate to Severe Pain (6-10) Nitroglycerin 1 inch 02/12/19 06:00 02/12/19 12:01 Nitro-Bid 2% Ointment TOP 1 inch Q6HR WALTER Administration Ondansetron HCl 4 mg 02/10/19 20:52 02/12/19 12:01 Zofran IVP 4 mg Q6H PRN Administration Nausea/Vomiting Sodium Chloride 10 ml 02/10/19 14:27 02/12/19 09:28 Flush - Normal Saline IVF 10 ml PRN PRN Administration Saline Flush - Exam Eye: PERRL, anicteric sclera ENT: normocephalic atraumatic, no oropharyngeal lesions, moist mucosa Neck: supple, symmetric, no JVD, no thyromegaly, no lymphadenopathy, no carotid bruit Heart: RRR, no murmur, no gallops, no rubs, normal peripheral pulses Heart - other findings: 2+ pitting pedal edema right leg Respiratory: CTAB, no wheezes, no rales, no ronchi, normal chest expansion Hosp A/P (1) NSTEMI (non-ST elevated myocardial infarction) Code(s): I21.4 - NON-ST ELEVATION (NSTEMI) MYOCARDIAL INFARCTION Status: Acute (2) CHF (congestive heart failure) Code(s): I50.9 - HEART FAILURE, UNSPECIFIED Status: Acute Qualifiers: Heart failure type: unspecified Heart failure chronicity: acute Qualified Code(s): I50.9 - Heart failure, unspecified (3) Pneumonia Code(s): J18.9 - PNEUMONIA, UNSPECIFIED ORGANISM Status: Acute Qualifiers: Pneumonia type: due to unspecified organism Laterality: bilateral Lung location: unspecified part of lung Qualified Code(s): J18.9 - Pneumonia, unspecified organism (4) Sepsis Code(s): A41.9 - SEPSIS, UNSPECIFIED ORGANISM Status: Acute Qualifiers: Sepsis type: sepsis due to unspecified organism Sepsis acute organ dysfunction status: with acute organ dysfunction Severe sepsis acute organ dysfunction type: acute respiratory failure Severe sepsis shock status: without septic shock (5) Respiratory failure Code(s): J96.90 - RESPIRATORY FAILURE, UNSP, UNSP W HYPOXIA OR HYPERCAPNIA Status: Acute Qualifiers: Chronicity: acute Respiratory failure complication: hypoxia Qualified Code(s): J96.01 - Acute respiratory failure with hypoxia (6) HTN (hypertension) Code(s): I10 - ESSENTIAL (PRIMARY) HYPERTENSION Status: Chronic Qualifiers: Hypertension type: essential hypertension Qualified Code(s): I10 - Essential (primary) hypertension (7) Tobacco abuse Code(s): Z72.0 - TOBACCO USE Status: Chronic (8) DM type 1 (diabetes mellitus, type 1) Status: Chronic Qualifiers: Diabetes mellitus complication status: with kidney complications Diabetes mellitus complication detail: with chronic kidney disease Chronic kidney disease stage: stage 3 (moderate) Qualified Code(s): E10.22 - Type 1 diabetes mellitus with diabetic chronic kidney disease; N18.3 - Chronic kidney disease, stage 3 (moderate) - Plan Hosp A/P (1) NSTEMI (non-ST elevated myocardial infarction) Continue ASA Plavix held by cardio as the patient may have CAD that needs surgical intervention Nitroglycerin paste BID Cardio on board. [facility] for thursday. ECHO with reduced EF On full dose lovenox as per cardio On lopressor as per cardio Morphine PRN High dose statin therapy (2) CHF (congestive heart failure) Acute systolic CHF with EF of 45-50% Continue IV lasix 40 mg BID Fluid and salt restriction Cardiology on board (3) Pneumonia Continue rocephin and doxycycline Duonebs PRN (4) Sepsis As above (5) Respiratory failure Related to pneumonia and new CHF and NSTEMI Oxygen supplementation and wean as tolerated (6) HTN (hypertension) Hold anti-HTN due to being on lasix Monitor BP Nitro paste (7) Tobacco abuse Pt. states he quit 2 days prior to admission No NRT due to active IN (8) DM type 1 (diabetes mellitus, type 1) Poor control with HA1C of 13.2 in 12/02 Repeat HA1C is better Continue basal insulin and SSI with diabetic diet Monitor sugars and adjust Nephrology on board 9) Constipation KUB obtained due to nausea and reveals constipation Miralax daily PO
[2019-02-12] MEDS ORDERED: Polyethylene Glycol 3350 17 GM Packet PO SCH (15:00)
--- NOTE | 2019-02-12 16:45 | PDOC.CPN ---
- Subjective Date: 02/12/19 Time: 15:00 Interval history: Continues to be SOB and unable to lay flat today. - Review of Systems General: denies: fever/chills, weight/appetite/sleep changes, night sweats, fatigue Respiratory: reports: cough, shortness of breath. denies: congestion, exercise intolerance Cardiovascular: denies: chest pain, palpitation, edema, paroxysmal nocturnal dyspnea, orthopnea Gastrointestinal: denies: nausea, vomiting, diarrhea, constipation, abd pain, GI bleeding Musculoskeletal: denies: pain, tenderness, stiffness, swelling, arthritis/ arthralgias Neurological: denies: numbness, syncope, seizure, weakness - Objective Allergies/Adverse Reactions: Allergies Allergy/AdvReac Type Severity Reaction Status Date / Time mushroom Allergy Verified 02/10/19 15:41 Visit Medications: Current Medications Acetaminophen (Tylenol) 650 mg PO Q4H PRN PRN Reason: Headache/Fever/Mild Pain (1-3) Last Admin: 02/12/19 04:22 Dose: 650 mg Aspirin (Ecotrin) 81 mg PO DAILY [facility] Last Admin: 02/12/19 09:29 Dose: 81 mg Atorvastatin Calcium (Lipitor) 80 mg PO HS [facility] Last Admin: 02/11/19 20:31 Dose: 80 mg Benzonatate (Tessalon) 100 mg PO Q6H PRN PRN Reason: Cough Dextrose/Water (Dextrose 50%) 25 gm SLOW IVP PRN PRN PRN Reason: Hypoglycemia Enoxaparin Sodium (Lovenox) 75 mg SC 0900,2100 [facility] Last Admin: 02/12/19 09:30 Dose: 75 mg Furosemide (Lasix) 40 mg SLOW IVP 0600,1400 [facility] Last Admin: 02/12/19 13:47 Dose: 40 mg Glucagon (Glucagon) 1 mg IM PRN PRN PRN Reason: Hypoglycemia Guaifenesin (Robitussin Sf) 200 mg PO Q4H PRN PRN Reason: Cough Last Admin: 02/11/19 22:42 Dose: 200 mg Ceftriaxone Sodium 1 gm/ (Sodium Chloride) 100 mls @ 200 mls/hr IVPB Q24HR [facility] Last Admin: 02/12/19 13:48 Dose: 100 mls Dextrose/Water (D5w) 1,000 mls @ 0 mls/hr IV .Q0M PRN PRN Reason: Hypoglycemia Sodium Chloride (Normal Saline 0.9%) 1,000 mls @ 100 mls/hr IV .Q10H [facility] Insulin Glargine 22 units/ (Miscellaneous Medication) 0.22 mls @ 0 mls/hr SC BID [facility] Last Admin: 02/12/19 09:29 Dose: 0.22 mls Insulin Human Lispro (Humalog) 0 units SC .MILD SLIDING SCALE PRN PRN Reason: Mild Correctional Scale Last Admin: 02/12/19 12:01 Dose: 2 unit Insulin Human Lispro (Humalog) 0 units SC .BEDTIME SLIDING SC PRN PRN Reason: Bedtime Correctional Scale Ipratropium [place] (Atrovent) 2.5 ml NEB [id number] [facility] Last Admin: 02/12/19 14:31 Dose: 2.5 ml Metoprolol Tartrate (Lopressor) 50 mg PO BID [facility] Last Admin: 02/12/19 09:29 Dose: 50 mg Miscellaneous Information (Communication Order-Pharmacy) 0 each FS ONE [facility] Stop: 02/14/19 08:59 Morphine Sulfate (Morphine) 2 mg SLOW IVP Q4H PRN PRN Reason: Moderate to Severe Pain (6-10) Last Admin: 02/12/19 13:44 Dose: 2 mg Nitroglycerin (Nitro-Bid 2% Ointment) 1 inch TOP Q6HR [facility] Last Admin: 02/12/19 12:01 Dose: 1 inch Ondansetron HCl (Zofran) 4 mg IVP Q6H PRN PRN Reason: Nausea/Vomiting Last Admin: 02/12/19 12:01 Dose: 4 mg Polyethylene Glycol (Miralax) 17 gm PO DAILY [facility] Polyethylene Glycol (Miralax) 17 gm PO NOW [facility] Stop: 02/12/19 17:00 Last Admin: 02/12/19 14:54 Dose: 17 gm Senna/Docusate Sodium (Senokot S) 2 tab PO BID PRN PRN Reason: Constipation Sodium Chloride (Flush - Normal Saline) 10 ml IVF PRN PRN PRN Reason: Saline Flush Last Admin: 02/12/19 09:28 Dose: 10 ml Vital Signs & Weight: Vital Signs Temp Pulse Resp BP Pulse Ox 02/12/19 15:48 98.1 F 82 24 H 132/70 98 02/12/19 14:31 81 20 96 02/12/19 11:30 98.4 F 75 18 121/71 92 L 02/12/19 10:38 87 18 99 02/12/19 08:25 97 02/12/19 08:00 98.3 F 87 18 137/82 97 Weight 165 lb 6.4 oz - Physical Exam General: alert & oriented x3 HEENT: normocephaly Neck: supple neck Cardiac: regular rate and rhythm Lungs: bibasilar rales Neuro: grossly intact Abdomen: active bowel sounds Extremities: 1+ LE edema Skin: clear Musculoskeletal: no pain - Labs Result Diagrams: 02/12/19 05:54 02/12/19 05:54 Troponin/CKMB CK-MB (CK-2) 2.4 ng/mL (0-6.6) 02/10/19 19:40 Troponin I 0.680 ng/mL (< 0.028) H* 02/11/19 14:30 - Telemetry Sinus rhythms and dysrhythmias: sinus rhythm - Assessment/Plan Assessment/Plan: 1. NSTEMI, demand ischemia? 2. Mild LV dysfunction EF at 45-50% 3. ANIYAH, creatinine increasing. 4. HTN 5. HLP 6. Tobacco use, quit 4 days ago. 7. Juvenile diabetes 8. Possible pneumonia 9. Non compliance PLAN: - Will stop IV lasix as his creatinine continues to increase and this is likely pre renal with IV lasix and a low normal EF - Will re evaluate creatinine tomorrow.
[2019-02-12] MEDS: Atorvastatin Calcium 40 MG TAB PO SCH (20:39)
--- NOTE | 2019-02-12 21:56 | EKG ---
Test Reason : Blood Pressure : / mmHG Vent. Rate : 109 BPM Atrial Rate : 109 BPM P-R Int : 134 ms QRS Dur : 086 ms QT Int : 332 ms P-R-T Axes : 045 022 260 degrees QTc Int : 447 ms Sinus tachycardia Possible Left atrial enlargement Possible Anterior infarct , age undetermined Abnormal ECG Confirmed by CANDACE ANDRADE DO ([id number]), book editor IVETH SHABAZZ ([id number]) on 02/12/2019 9:54:51 PM Referred By: Confirmed By:CANDACE ANDRADE DO
[2019-02-13] MEDS: Nitroglycerin 2% Ointment 1 INCH/1 GM Packet TOP SCH ×5 (02:07→23:52)
[2019-02-13] MEDS: Ipratropium Bromide 2.5 ml Neb NEB SCH ×6 (02:35→23:12)
[2019-02-13] MEDS: Ondansetron PF 4 MG/2 ML Vial IVP PRN ×3 (02:55→14:22)
[2019-02-13 03:52] LABS: #Basophils 0.1 thou/uL (0.0-0.2); #Eosinphils 0.8 thou/uL (0.0-0.7); #Lymphocytes 2.5 thou/uL (1.20-3.40); #Monocytes 0.7 thou/uL (0.11-0.59); #Neutrophils 5.3 thou/uL (1.40-6.50); %Basophils 0.7 % (0.0-1.0); %Eosinophils 8.5 % (0.0-10.0); %Monocytes 7.5 % (0.0-10.0); %Neutrophils 56.3 % (42.0-75.0); Mean Corpuscular HGB CONC 32.4 g/dL (32.0-36.0); Mean Corpuscular Hemoglobin 28.2 pg (27.0-31.0); Mean Corpuscular Volume 86.9 fL (78.0-98.0); Mean Platelet Volume 8.5 fL (7.4-10.4); Platelet Count 308 thou/uL (130-400); RBC Distribution Width 13.2 % (11.5-14.5); Red Blood Cell (RBC) Count 2.84 mill/uL (4.70-6.10); White Blood Cell (WBC) Count 9.4 thou/uL (4.8-10.8)
[2019-02-13 04:14] LABS: ALT (SGPT) 9 U/L (8-55); AST (SGOT) 9 U/L (5-34); Albumin 3.1 g/dL (3.5-5.0); Alkaline Phosphatase 68 U/L (40-110); Anion Gap 10 mmol/L (10-20); BUN (Urea Nitrogen) 36 mg/dL (8.9-20.6); Bilirubin, Total 0.3 mg/dL (0.2-1.2); Calc. Creatinine Clearance 46 mL/min (70-130); Calcium 8.8 mg/dL (7.8-10.44); Carbon Dioxide 29 mmol/L (22-29); Chloride 104 mmol/L (98-107); Estimated GFR-MDRD 31; Globulin 2.9 g/dL (2.4-3.5); Glucose 108 mg/dL (70-105); Potassium 4.5 mmol/L (3.5-5.1); Sodium 138 mmol/L (136-145)
--- NOTE | 2019-02-13 08:29 | RAD ---
EXAM: Chest Two Views 02/13/2019 8:25 AM HISTORY: Shortness of breath COMPARISON: Single view of the chest dated February 02, 2019 FINDINGS: Heart: Normal in size and contour. Pulmonary vessels: Normal. Costophrenic angles: Small bilateral pleural effusions are present. Lungs: There is improvement in bilateral airspace opacities. Residual interstitial and mild reticular nodular opacities remain, predominantly in a perihilar distribution. Pneumothorax: None. Osseous structures:Intact. Additional findings: IMPRESSION: Some improvement in the bilateral perihilar airspace opacities. Residual interstitial and reticulonod ular opacities remain. Continued follow-up is recommended. Small bilateral pleural effusions, new from the prior exam.
[2019-02-13] MEDS: Aspirin 81 mg Enteric Coated Tablet PO SCH (08:36)
[2019-02-13] MEDS: Metoprolol Tartrate 50 MG TAB PO SCH ×2 (08:36→21:00)
[2019-02-13] MEDS: Insulin Glargine 22 UNITS in Pre-Filled Syringe 1 EACH SC SCH ×2 (08:36→20:59)
[2019-02-13] MEDS: Enoxaparin Sodium 80 MG/0.8 ML SYRINGE SC SCH ×2 (08:36→20:59)
[2019-02-13] MEDS: Morphine 2 MG/ML SYRINGE SLOW IVP PRN ×2 (08:39→23:49)
[2019-02-13] MEDS: Diabetic Tussin 200 MG/10 ML UDCUP PO PRN ×2 (09:12→17:10)
[2019-02-13] MEDS: Polyethylene Glycol 3350 17 GM Packet PO SCH (09:14)
[2019-02-13 09:28] LABS: Hemoglobin 8.6 g/dL (14.0-18.0); Platelet Count 330 thou/uL (130-400)
[2019-02-13 11:34] LABS: Hemoglobin 8.6 g/dL (14.0-18.0); Platelet Count 333 thou/uL (130-400)
[2019-02-13] MEDS: Acetaminophen 325 MG TAB PO PRN ×2 (11:57→17:10)
--- NOTE | 2019-02-13 13:37 | PDOC.HOSPP ---
- Subjective Encounter Date: 02/13/19 Encounter Time: 13:35 Subjective: f/u s/p NSTEMI likely due to demand ischemia with plans for [facility] on 02/14/19. Feels better overall and less SOB. Appetite decreased - Objective Vital Signs & Weight: Vital Signs (12 hours) Temp Pulse Resp BP Pulse Ox 02/13/19 11:25 98.1 F 75 26 H 143/83 H 97 02/13/19 10:41 74 16 97 02/13/19 08:26 98.0 F 85 20 164/84 H 98 02/13/19 08:00 98 02/13/19 07:52 81 14 98 02/13/19 02:35 79 16 89 L Weight Weight 165 lb 6.4 oz I&O: 02/12/19 02/13/19 02/14/19 06:59 06:59 06:59 Intake Total 1648 1635 Output Total 2550 3030 Balance -902 -9210 Result Diagrams: 02/13/19 11:12 02/13/19 08:56 Additional Labs: Accuchecks 02/13/19 02/13/19 02/13/19 10:18 05:53 02:52 POC Glucose 95 139 H 120 H 02/12/19 02/12/19 20:18 16:56 POC Glucose 190 H 98 Microbiology 02/10/19 11:21 Venous blood - Right Arm Blood Culture - Preliminary NO GROWTH AT 48 HOURS 02/10/19 11:11 Venous blood - Right Hand Blood Culture - Preliminary NO GROWTH AT 48 HOURS Laboratory Tests 02/10/19 02/10/19 02/10/19 09:53 09:53 16:19 WBC Hgb Creatinine 1.53 H Troponin I 0.922 H* 0.862 H* 02/10/19 02/11/19 02/11/19 19:40 03:59 03:59 WBC 11.9 H Hgb 8.3 L Creatinine 1.85 H Troponin I 0.907 H* 02/11/19 02/11/19 02/11/19 11:26 11:26 11:26 WBC Hgb 8.8 L Creatinine 1.89 H Troponin I 0.724 H* 02/11/19 02/12/19 02/12/19 14:30 05:54 05:54 WBC 12.1 H Hgb 8.0 L Creatinine 2.02 H Troponin I 0.680 H* 02/13/19 02/13/19 02/13/19 03:15 03:15 08:56 WBC Hgb 8.0 L 8.6 L Creatinine 2.41 H Troponin I Radiology Reviewed by me: Yes (PCXR-persistent perihilar infiltrates, interstitial opacification) EKG Reviewed by me: Yes (Tele - SR) Hospitalist ROS - Medication Medications: Active Medications Generic Name Dose Route Start Last Admin Trade Name Freq PRN Reason Stop Dose Admin Acetaminophen 650 mg 02/10/19 14:27 02/13/19 11:57 Tylenol PO 650 mg Q4H PRN Administration Headache/Fever/Mild Pain (1-3) Aspirin 81 mg 02/12/19 09:00 02/13/19 08:36 Ecotrin PO 81 mg DAILY [facility] Administration Atorvastatin Calcium 80 mg 02/11/19 21:00 02/12/19 20:39 Lipitor PO 80 mg HS WALTER Administration Benzonatate 100 mg 02/10/19 14:33 02/12/19 17:19 Tessalon PO 100 mg Q6H PRN Administration Cough Enoxaparin Sodium 75 mg 02/11/19 21:00 02/13/19 08:36 Lovenox SC 75 mg 0900,2100 [facility]TER Administration Guaifenesin 200 mg 02/10/19 14:33 02/13/19 09:12 Robitussin Sf PO 200 mg Q4H PRN Administration Cough Ceftriaxone Sodium 1 gm/ 100 mls @ 200 mls/hr 02/11/19 14:00 02/12/19 13:48 Sodium Chloride IVPB 100 mls Q24HR [facility]ALTER Administration Insulin Glargine 22 units/ 0.22 mls @ 0 mls/hr 02/12/19 09:00 02/13/19 08:36 Miscellaneous Medication SC 0.22 mls BID [facility]ALTER Administration Insulin Human Lispro 0 units 02/10/19 14:43 02/12/19 12:01 Humalog SC 2 unit .MILD SLIDING SCALE PRN Administration Mild Correctional Scale Ipratropium [place] 2.5 ml 02/12/19 10:30 02/13/19 10:41 Atrovent NEB 2.5 ml [id number] [facility]TER Administration Metoprolol Tartrate 50 mg 02/11/19 21:00 02/13/19 08:36 Lopressor PO 50 mg BID WALTER Administration Morphine Sulfate 2 mg 02/11/19 11:13 02/13/19 08:39 Morphine SLOW IVP 2 mg Q4H PRN Administration Moderate to Severe Pain (6-10) Nitroglycerin 1 inch 02/12/19 06:00 02/13/19 11:57 Nitro-Bid 2% Ointment TOP 1 inch Q6HR [facility]ALTER Administration Ondansetron HCl 4 mg 02/10/19 20:52 02/13/19 08:36 Zofran IVP 4 mg Q6H PRN Administration Nausea/Vomiting Polyethylene Glycol 17 gm 02/13/19 09:00 02/13/19 09:14 Miralax PO Not Given DAILY [facility]ALTER Senna/Docusate Sodium 2 tab 02/10/19 14:27 02/13/19 09:12 Senokot S PO 2 tab BID PRN Administration Constipation Sodium Chloride 10 ml 02/10/19 14:27 02/12/19 09:28 Flush - Normal Saline IVF 10 ml PRN PRN Administration Saline Flush - Exam General Appearance: NAD, awake alert Eye: PERRL, anicteric sclera ENT: normocephalic atraumatic, no oropharyngeal lesions Neck: supple, symmetric, no JVD, no thyromegaly, no lymphadenopathy, no carotid bruit Heart: RRR, no murmur, no gallops, no rubs, normal peripheral pulses Respiratory: CTAB, rales, rhonchi Gastrointestinal: soft, non-tender, non-distended, normal bowel sounds, no palpable masses Extremities: no cyanosis, 1+ LE edema Skin: normal turgor, no lesions Neurological: cranial nerve grossly intact, no new deficit Musculoskeletal: normal tone, normal strength Psychiatric: normal affect, A&O x 3 Hosp A/P (1) NSTEMI (non-ST elevated myocardial infarction) Code(s): I21.4 - NON-ST ELEVATION (NSTEMI) MYOCARDIAL INFARCTION Status: Acute Plan: Likely demand state, plan for [facility] 02/14/19, continue Lovenox, Lipitor, ASA (2) ANIYAH (acute kidney injury) Code(s): N17.9 - ACUTE KIDNEY FAILURE, UNSPECIFIED Status: Acute Plan: Iatrogenic with diuresis, avoid nephrotoxic agents, Lasix on hold, limit contrast exposure, serial creatinine (3) CKD (chronic kidney disease) stage 3, GFR 30-59 ml/min Code(s): N18.3 - CHRONIC KIDNEY DISEASE, STAGE 3 (MODERATE) Status: Chronic (4) Tobacco abuse Code(s): Z72.0 - TOBACCO USE Status: Chronic Plan: Tobacco cessation resources (5) DM type 1 (diabetes mellitus, type 1) Status: Chronic Qualifiers: Diabetes mellitus complication status: with kidney complications Diabetes mellitus complication detail: with chronic kidney disease Chronic kidney disease stage: stage 3 (moderate) Qualified Code(s): E10.22 - Type 1 diabetes mellitus with diabetic chronic kidney disease; N18.3 - Chronic kidney disease, stage 3 (moderate) Plan: ISS, continue Glargine, serial accuchecks - Plan continue antibiotics, PT/OT, renal social worker, respiratory therapy, out of bed/ ambulate, DVT proph w/SCDs Stable currently Continue Lovenox/ASA/Lipitor Plan for [facility] in am 02/14/19 OOB/ambulate Daily weights/I&O's AM lab: BMP, H/H
[2019-02-13] MEDS: cefTRIAXone\\ROCEPHIN 1 GM in Sodium Chloride 0.9% 100 ML IVPB SCH (14:22)
--- NOTE | 2019-02-13 16:35 | PDOC.CPN ---
- Subjective Date: 02/13/19 Time: 16:34 Interval history: He is doing well. Continues to have episodes of chest pain mostly when he coughs. - Review of Systems General: denies: fever/chills, weight/appetite/sleep changes, night sweats, fatigue Respiratory: reports: cough. denies: congestion, shortness of breath, exercise intolerance Cardiovascular: reports: chest pain. denies: palpitation, edema, paroxysmal nocturnal dyspnea, orthopnea Gastrointestinal: denies: nausea, vomiting, diarrhea, constipation, abd pain, GI bleeding Musculoskeletal: denies: pain, tenderness, stiffness, swelling, arthritis/ arthralgias Neurological: denies: numbness, syncope, seizure, weakness - Objective Allergies/Adverse Reactions: Allergies Allergy/AdvReac Type Severity Reaction Status Date / Time mushroom Allergy Verified 02/10/19 15:41 Visit Medications: Current Medications Acetaminophen (Tylenol) 650 mg PO Q4H PRN PRN Reason: Headache/Fever/Mild Pain (1-3) Last Admin: 02/13/19 11:57 Dose: 650 mg Aspirin (Ecotrin) 81 mg PO DAILY [facility] Last Admin: 02/13/19 08:36 Dose: 81 mg Atorvastatin Calcium (Lipitor) 80 mg PO HS [facility] Last Admin: 02/12/19 20:39 Dose: 80 mg Benzonatate (Tessalon) 100 mg PO Q6H PRN PRN Reason: Cough Last Admin: 02/12/19 17:19 Dose: 100 mg Dextrose/Water (Dextrose 50%) 25 gm SLOW IVP PRN PRN PRN Reason: Hypoglycemia Enoxaparin Sodium (Lovenox) 75 mg SC 0900,2100 [facility] Last Admin: 02/13/19 08:36 Dose: 75 mg Glucagon (Glucagon) 1 mg IM PRN PRN PRN Reason: Hypoglycemia Guaifenesin (Robitussin Sf) 200 mg PO Q4H PRN PRN Reason: Cough Last Admin: 02/13/19 09:12 Dose: 200 mg Ceftriaxone Sodium 1 gm/ (Sodium Chloride) 100 mls @ 200 mls/hr IVPB Q24HR [facility] Last Admin: 02/13/19 14:22 Dose: 100 mls Dextrose/Water (D5w) 1,000 mls @ 0 mls/hr IV .Q0M PRN PRN Reason: Hypoglycemia Insulin Glargine 22 units/ (Miscellaneous Medication) 0.22 mls @ 0 mls/hr SC BID [facility] Last Admin: 02/13/19 08:36 Dose: 0.22 mls Sodium Chloride (Normal Saline 0.9%) 1,000 mls @ 100 mls/hr IV .Q10H [facility] Insulin Human Lispro (Humalog) 0 units SC .MILD SLIDING SCALE PRN PRN Reason: Mild Correctional Scale Last Admin: 02/12/19 12:01 Dose: 2 unit Insulin Human Lispro (Humalog) 0 units SC .BEDTIME SLIDING SC PRN PRN Reason: Bedtime Correctional Scale Ipratropium [place] (Atrovent) 2.5 ml NEB [id number] [facility] Last Admin: 02/13/19 14:19 Dose: 2.5 ml Metoprolol Tartrate (Lopressor) 50 mg PO BID [facility] Last Admin: 02/13/19 08:36 Dose: 50 mg Miscellaneous Information (Communication Order-Pharmacy) 0 each FS ONE [facility] Stop: 02/14/19 08:59 Morphine Sulfate (Morphine) 2 mg SLOW IVP Q4H PRN PRN Reason: Moderate to Severe Pain (6-10) Last Admin: 02/13/19 08:39 Dose: 2 mg Nitroglycerin (Nitro-Bid 2% Ointment) 1 inch TOP Q6HR [facility] Last Admin: 02/13/19 11:57 Dose: 1 inch Ondansetron HCl (Zofran) 4 mg IVP Q6H PRN PRN Reason: Nausea/Vomiting Last Admin: 02/13/19 14:22 Dose: 4 mg Polyethylene Glycol (Miralax) 17 gm PO DAILY [facility] Last Admin: 02/13/19 09:14 Dose: Not Given Senna/Docusate Sodium (Senokot S) 2 tab PO BID PRN PRN Reason: Constipation Last Admin: 02/13/19 09:12 Dose: 2 tab Sodium Chloride (Flush - Normal Saline) 10 ml IVF PRN PRN PRN Reason: Saline Flush Last Admin: 02/12/19 09:28 Dose: 10 ml Vital Signs & Weight: Vital Signs Temp Pulse Resp BP Pulse Ox 02/13/19 15:49 98.2 F 81 24 H 175/86 H 98 02/13/19 14:19 75 18 100 02/13/19 11:25 98.1 F 75 26 H 143/83 H 97 02/13/19 10:41 74 16 97 02/13/19 08:26 98.0 F 85 20 164/84 H 98 02/13/19 08:00 98 02/13/19 07:52 81 14 98 Weight 165 lb 6.4 oz - Physical Exam General: alert & oriented x3 HEENT: mucus membranes moist Neck: supple neck Cardiac: regular rate and rhythm, no murmur Lungs: clear to auscultation Neuro: grossly intact Abdomen: active bowel sounds, soft, non-tender Extremities: no edema Skin: clear Musculoskeletal: no pain - Labs Result Diagrams: 02/13/19 11:12 02/13/19 08:56 Troponin/CKMB CK-MB (CK-2) 2.4 ng/mL (0-6.6) 02/10/19 19:40 Troponin I 0.680 ng/mL (< 0.028) H* 02/11/19 14:30 - Telemetry Sinus rhythms and dysrhythmias: sinus rhythm - Assessment/Plan Assessment/Plan: 1. NSTEMI, demand ischemia? 2. Mild LV dysfunction EF at 45-50% 3. AINYAH, creatinine increasing. 4. HTN 5. HLP 6. Tobacco use, quit 4 days ago. 7. Juvenile diabetes 8. Possible pneumonia 9. Non compliance PLAN: - Creatinine improvgin. Will start IV fluids now. - Plan for C with Dr. Altman tomorrow as long as creatinine continues to improve. -
[2019-02-13] MEDS: Sodium Chloride 0.9% 1,000 ML IV SCH (17:10)
[2019-02-13] MEDS: Atorvastatin Calcium 40 MG TAB PO SCH (21:00)
[2019-02-14] MEDS: Ipratropium Bromide 2.5 ml Neb NEB SCH ×6 (02:53→22:57)
[2019-02-14] MEDS: Sodium Chloride 0.9% 1,000 ML IV SCH (03:32)
[2019-02-14] MEDS: Nitroglycerin 2% Ointment 1 INCH/1 GM Packet TOP SCH (03:33)
[2019-02-14 04:53] LABS: Anion Gap 9 mmol/L (10-20); BUN (Urea Nitrogen) 31 mg/dL (8.9-20.6); Calc. Creatinine Clearance 61 mL/min (70-130); Calcium 8.4 mg/dL (7.8-10.44); Carbon Dioxide 29 mmol/L (22-29); Chloride 107 mmol/L (98-107); Estimated GFR-MDRD 43; Glucose 145 mg/dL (70-105); Potassium 4.5 mmol/L (3.5-5.1); Sodium 140 mmol/L (136-145)
[2019-02-14] MEDS: Aspirin 81 mg Enteric Coated Tablet PO SCH (05:05)
[2019-02-14] MEDS: Metoprolol Tartrate 50 MG TAB PO SCH ×2 (05:06→21:44)
[2019-02-14] MEDS ORDERED: Sodium Chloride 0.9% 1,000 ML IV SCH ×3 (06:00→16:00)
[2019-02-14] MEDS: Enoxaparin Sodium 80 MG/0.8 ML SYRINGE SC SCH (07:39)
[2019-02-14] MEDS: Polyethylene Glycol 3350 17 GM Packet PO SCH (07:40)
[2019-02-14] MEDS ORDERED: Protamine Sulfate 50 MG/5 ML VIAL ONE (08:42)
[2019-02-14] MEDS ORDERED: Heparin (Artline) 1,000 ML ONE (08:42)
[2019-02-14] MEDS ORDERED: Lidocaine 1% (PF) 30 ML VIAL ONE (08:42)
[2019-02-14] MEDS ORDERED: Heparin 10,000 UNITS/1 ML VIAL ONE (08:42)
--- NOTE | 2019-02-14 08:42 | PRG ---
DATE OF SERVICE: 02/13/2019 SUBJECTIVE: This is a 33-year-old gentleman, being seen for acute kidney injury. The patient denies any nausea, vomiting, or chest pain. OBJECTIVE: GENERAL: The patient is awake and alert. VITAL SIGNS: Afebrile, pulse 75, breathing 26, blood pressure 143/83. GENERAL APPEARANCE AND MENTAL STATUS: Fair. HEAD/NECK: Normocephalic. Atraumatic. EYES: EOMI. No deformity. EARS: Clear. No ulcers. NOSE: Intact. No lesions. MOUTH: Clear. No discharge. THROAT: Clear. No exudate. LUNGS: Clear. No crackles. CARDIAC: S1, S2. No rub. ABDOMEN: Benign. Bowel sounds positive. GENITALIA/RECTUM: [place] absent. BACK/EXTREMITIES: Edema 0+. NEUROLOGICAL: Alert and motor intact. SKIN: LYMPHATICS: LABORATORY DATA: Hemoglobin 8.6, creatinine is 2.41. ASSESSMENT AND PLAN: 1. Acute kidney injury . 2. Hypertension . 3. . Job ID: [id number]
[2019-02-14] MEDS ORDERED: Midazolam HCl 2 mg/2 ml Vial ONE (09:18)
[2019-02-14] MEDS ORDERED: Fentanyl 100 MCG/2 ML VIAL ONE (09:19)
[2019-02-14] MEDS ORDERED: Heparin 25,000 units/D5W 500 ML ONE (10:04)
[2019-02-14] MEDS ORDERED: Nitroglycerin 0.4 MG TAB (25 Tab Bottle) SL PRN (10:09)
[2019-02-14] MEDS ORDERED: Acetaminophen/Codeine 30-300mg Tablet PO PRN ×2 (10:09)
[2019-02-14] MEDS ORDERED: Sodium Chloride 0.9% 200 ML IV PRN (10:09)
[2019-02-14] MEDS ORDERED: Heparin 10,000 UNITS/ 10 ML VIAL SLOW IVP SCH (10:15)
[2019-02-14] MEDS ORDERED: Communication Order-Pharmacy FS ONE (11:12)
[2019-02-14] MEDS: Insulin Glargine 22 UNITS in Pre-Filled Syringe 1 EACH SC SCH ×2 (12:47→21:44)
--- NOTE | 2019-02-14 12:58 | CON ---
DATE OF CONSULTATION: HISTORY OF PRESENT ILLNESS: This is a 33-year-old, juvenile onset diabetic, who presented to the hospital on 02/10 with symptoms of congestive heart failure. A CT of his chest showed no evidence of pulmonary embolus, but did show bilateral alveolar infiltrates. The patient admits to smoking one pack of cigarettes a day. He has been noncompliant with his medications except for his insulin. He has additional past medical history of hypertension and dyslipidemia. SOCIAL HISTORY: He works in the [employer] and [employer] business. He [place] from [place] of state and was on his way to a job site. He is not currently , but does have a fiancee who is here and does have a history of having three children. He denies alcohol or drug abuse. PAST SURGICAL HISTORY: Includes a left BK amputation about a year and a half ago. He has also had a full mouth extraction. HOME MEDICATIONS: Include Lantus and Humalog insulin. ALLERGIES: TO MUSHROOMS. PHYSICAL EXAMINATION: GENERAL: He is awake and alert. VITAL SIGNS: Recorded heart rate is 75, blood pressure of 160/80. NECK: No carotid bruits. LUNGS: Clear anteriorly with no wheezes. CARDIAC: Very soft systolic murmur on the left chest area. ABDOMEN: Obese, nontender. EXTREMITIES: Palpable right dorsalis pedis with 1+ foot and ankle edema. He is right arm dominant with a good left radial pulse and a good modified Goyo's test using plethysmography. LABORATORY VALUES: Of note include a creatinine of about 2, varying from 1.8 to 2.1. A1c of 8.5. Hemoglobin of 8.6, normal platelet count. Cardiac catheterization was reviewed. Cardiac echo report showed an ejection fraction of about 45% with moderate mitral regurgitation. Cardiac cath with severe three-vessel coronary artery disease with potential targets of a PDA, posterolateral, distal ramus, LAD, and obtuse marginal. He has some other smaller branches, which will not be bypassable, but do have significant disease. ASSESSMENT AND PLAN: At this time, the patient presents with multiple cardiovascular risk factors and other comorbid conditions, which does elevate his risk of morbidity and mortality for coronary artery bypass grafting. After discussion with Dr. Altman, he does not feel that the mitral regurgitation is severe enough at this time to justify intervention. We would prefer to let him get 2 or 3 weeks out without smoking. However, Dr. Altman feels that his surgical intervention should proceed within the next day. Informed consent has been obtained. Job ID: [id number]
--- NOTE | 2019-02-14 13:08 | RAD ---
Chest AP view INDICATION: CHF COMPARISON: February 13, 2019 FINDINGS: Lungs:There is now worsening perihilar airspace opacities, more prominent within the upper lobes. Cardiac silhouette:Mild cardiomegaly persists Pulmonary vasculature:Mildly prominent Pleural spaces:Small bilateral pleural effusions persist Upper abdomen:No abnormality seen. Osseous structures: No acute osseous abnormality. Additional findings:None. IMPRESSION: Worsening perihilar airspace opacities may reflect worsening pneumonia or edema. Small bi lateral pleural effusions persist. Mild cardiomegaly persists.
[2019-02-14] MEDS: Morphine 2 MG/ML SYRINGE SLOW IVP PRN ×2 (13:24→20:25)
--- NOTE | 2019-02-14 14:07 | PRG ---
DATE OF SERVICE: 02/14/2019 SUBJECTIVE: A 33-year-old gentleman, being seen for acute kidney injury. The patient denied nausea, vomiting, or chest pain. OBJECTIVE: CONSTITUTIONAL: The patient is awake and alert. VITAL SIGNS: Afebrile, pulse 86, breathing 16, and blood pressure 178/90. GENERAL APPEARANCE AND MENTAL STATUS: Fair. HEAD/NECK: Normocephalic. Atraumatic. EYES: EOMI. No deformity. EARS: Clear. No ulcers. NOSE: Intact. No lesions. MOUTH: Clear. No discharge. THROAT: Clear. No exudate. LUNGS: Clear. No crackles. CARDIAC: S1, S2. No rub. ABDOMEN: Benign. Bowel sounds positive. GENITALIA/RECTUM: Conroy absent. BACK/EXTREMITIES: Edema 0+. NEUROLOGICAL: Alert and motor intact. SKIN: LYMPHATICS: LABORATORY DATA: Labs show hemoglobin 8.6. Creatinine 1.8. ASSESSMENT AND PLAN: 1. Acute kidney injury with chronic kidney disease stage 3, improved. 2. Acute tubular necrosis, stable. 3. Hypertension. Stop IV fluids. 4. Anemia, stable. I will sign off on this patient. Please reconsult as needed. Job ID: [id number]
[2019-02-14] MEDS: cefTRIAXone\\ROCEPHIN 1 GM in Sodium Chloride 0.9% 100 ML IVPB SCH (14:58)
[2019-02-14] MEDS ORDERED: Iopamidol 370 76% 50 ML VIAL FS ONE (15:07)
[2019-02-14] MEDS ORDERED: Iopamidol 370 76% 100 ML VIAL ONE (15:07)
--- NOTE | 2019-02-14 16:01 | EKG ---
Test Reason : Blood Pressure : / mmHG Vent. Rate : 093 BPM Atrial Rate : 093 BPM P-R Int : 134 ms QRS Dur : 092 ms QT Int : 358 ms P-R-T Axes : 046 039 194 degrees QTc Int : 445 ms Normal sinus rhythm Abnormal ECG When compared with ECG of 10-FEB-2019 09:58, ST now depressed in Anterior leads Confirmed by CARRIE MAJOR, DR. Puri ([id number]) on 02/14/2019 4:00:41 PM Referred By: JOEL Confirmed By:DR. Khushi BUTLER MD
[2019-02-14 17:49] LABS: INR-International Normal Ratio 1.1; PTT 41.2 SEC (22.9-36.1); Prothrombin Time 14.1 SEC (12.0-14.7)
--- NOTE | 2019-02-14 17:56 | PDOC.HOSPP ---
- Subjective Encounter Date: 02/14/19 Encounter Time: 17:50 Subjective: f/u for 3v CAD with plans for CABG 02/15/19. No new complaints currently. - Objective Vital Signs & Weight: Vital Signs (12 hours) Temp Pulse Resp BP Pulse Ox 02/14/19 16:45 99.7 F H 02/14/19 15:09 90 27 H 100 02/14/19 12:00 98.4 F 02/14/19 07:38 74 02/14/19 07:33 98.1 F 75 16 160/80 H 98 Weight Weight 163 lb 5.8 oz Most Recent Monitor Data Heart Rate from ECG 87 NIBP 147/75 NIBP BP-Mean 99 Respiration from ECG 18 SpO2 95 I&O: 02/13/19 02/14/19 02/15/19 06:59 06:59 06:59 Intake Total 1635 2086 50 Output Total 3030 1375 25 Balance -1395 711 25 Result Diagrams: 02/13/19 11:12 02/14/19 03:58 Additional Labs: Accuchecks 02/14/19 02/14/19 02/13/19 12:39 06:04 20:43 POC Glucose 73 156 H 137 H Radiology Reviewed by me: Yes (PCXR - perihilar opacities, edema) EKG Reviewed by me: Yes (Tele - SR) Hospitalist ROS - Medication Medications: Active Medications Generic Name Dose Route Start Last Admin Trade Name Freq PRN Reason Stop Dose Admin Acetaminophen 650 mg 02/10/19 14:27 02/13/19 17:10 Tylenol PO 02/15/19 08:59 650 mg Q4H PRN Administration Headache/Fever/Mild Pain (1-3) Atorvastatin Calcium 80 mg 02/11/19 21:00 02/13/19 21:00 Lipitor PO 02/15/19 08:59 80 mg HS WALTER Administration Benzonatate 100 mg 02/10/19 14:33 02/12/19 17:19 Tessalon PO 02/15/19 08:59 100 mg Q6H PRN Administration Cough Guaifenesin 200 mg 02/10/19 14:33 02/13/19 17:10 Robitussin Sf PO 02/15/19 08:59 200 mg Q4H PRN Administration Cough Ceftriaxone Sodium 1 gm/ 100 mls @ 200 mls/hr 02/11/19 14:00 02/14/19 14:58 Sodium Chloride IVPB 100 mls Q24HR WALTER Administration Insulin Glargine 22 units/ 0.22 mls @ 0 mls/hr 02/12/19 09:00 02/14/19 12:47 Miscellaneous Medication SC 02/15/19 08:59 Not Given BID WALTER Sodium Chloride 1,000 mls @ 50 mls/hr 02/14/19 16:00 02/14/19 16:41 Normal Saline 0.9% IV 02/15/19 08:59 Not Given .Q20H WALTER Insulin Human Lispro 0 units 02/10/19 14:43 02/12/19 12:01 Humalog SC 02/15/19 08:59 2 unit .MILD SLIDING SCALE PRN Administration Mild Correctional Scale Ipratropium [place] 2.5 ml 02/12/19 10:30 02/14/19 15:09 Atrovent NEB 02/15/19 08:59 2.5 ml [id number] WALTER Administration Metoprolol Tartrate 50 mg 02/11/19 21:00 02/14/19 05:06 Lopressor PO 50 mg BID WALTER Administration Morphine Sulfate 2 mg 02/11/19 11:13 02/14/19 13:24 Morphine SLOW IVP 02/15/19 08:59 2 mg Q4H PRN Administration Moderate to Severe Pain (6-10) Ondansetron HCl 4 mg 02/10/19 20:52 02/13/19 14:22 Zofran IVP 02/15/19 08:59 4 mg Q6H PRN Administration Nausea/Vomiting Polyethylene Glycol 17 gm 02/13/19 09:00 02/14/19 07:40 Miralax PO 02/15/19 08:59 Not Given DAILY WALTER Senna/Docusate Sodium 2 tab 02/10/19 14:27 02/13/19 09:12 Senokot S PO 02/15/19 08:59 2 tab BID PRN Administration Constipation Sodium Chloride 10 ml 02/10/19 14:27 02/12/19 09:28 Flush - Normal Saline IVF 02/15/19 08:59 10 ml PRN PRN Administration Saline Flush - Exam General Appearance: NAD, awake alert Eye: PERRL, anicteric sclera ENT: normocephalic atraumatic, no oropharyngeal lesions Neck: supple, symmetric, no JVD, no thyromegaly Heart: RRR, no gallops, no rubs, murmur present Heart - other findings: II/ CHINO at apex Respiratory: CTAB, no wheezes, no rales Gastrointestinal: soft, non-tender, non-distended, normal bowel sounds, no palpable masses Extremities: no cyanosis, no clubbing, no edema Skin: normal turgor, no lesions Neurological: cranial nerve grossly intact, no new deficit Musculoskeletal: normal tone, normal strength, no muscle wasting Psychiatric: normal affect, A&O x 3 Hosp A/P (1) NSTEMI (non-ST elevated myocardial infarction) Code(s): I21.4 - NON-ST ELEVATION (NSTEMI) MYOCARDIAL INFARCTION Status: Acute Plan: Extensive CAD on [facility] with plans for CABG (2) ANIYAH (acute kidney injury) Code(s): N17.9 - ACUTE KIDNEY FAILURE, UNSPECIFIED Status: Acute Plan: Improved, continue low-volume IVF's, avoid nephrotoxic meds/limit contrast exposure (3) CKD (chronic kidney disease) stage 3, GFR 30-59 ml/min Code(s): N18.3 - CHRONIC KIDNEY DISEASE, STAGE 3 (MODERATE) Status: Chronic (4) Tobacco abuse Code(s): Z72.0 - TOBACCO USE Status: Chronic Plan: Tobacco cessation resources (5) DM type 1 (diabetes mellitus, type 1) Status: Chronic Qualifiers: Diabetes mellitus complication status: with kidney complications Diabetes mellitus complication detail: with chronic kidney disease Chronic kidney disease stage: stage 3 (moderate) Qualified Code(s): E10.22 - Type 1 diabetes mellitus with diabetic chronic kidney disease; N18.3 - Chronic kidney disease, stage 3 (moderate) Plan: Continue Glargine 22u BID, ISS, ADA - Plan continue antibiotics, social organization professor, respiratory therapy, DVT proph w/SCDs Stable currently Continue Lipitor ASA on hold Plan for CABG 02/15/19 OOB/ambulate Daily weights/I&O's AM lab: BMP, H/H, PT/PTT
[2019-02-14] MEDS: Ondansetron PF 4 MG/2 ML Vial IVP PRN (20:28)
[2019-02-14] MEDS: Nitroglycerin 50 MG/250 ML BOT 250 ML IVPB SCH (20:59)
[2019-02-14] MEDS: Atorvastatin Calcium 40 MG TAB PO SCH (21:44)
[2019-02-14 23:13] LABS: INR-International Normal Ratio 1.1; Prothrombin Time 14.2 SEC (12.0-14.7)
[2019-02-14 23:14] LABS: PTT 44.1 SEC (22.9-36.1)
[2019-02-15] MEDS: Nitroglycerin 50 MG/250 ML BOT 250 ML IVPB SCH ×2 (01:39→05:35)
[2019-02-15] MEDS: Ondansetron PF 4 MG/2 ML Vial IVP PRN (01:55)
[2019-02-15] MEDS: Morphine 2 MG/ML SYRINGE SLOW IVP PRN (02:43)
[2019-02-15] MEDS ORDERED: Heparin 10,000 UNITS/ 10 ML VIAL SLOW IVP SCH (02:45)
[2019-02-15] MEDS ORDERED: Heparin 25,000 units/D5W 500 ML IV SCH (02:45)
[2019-02-15] MEDS: Ipratropium Bromide 2.5 ml Neb NEB SCH ×2 (03:28→10:20)
[2019-02-15 05:25] LABS: INR-International Normal Ratio 1.1; Prothrombin Time 14.2 SEC (12.0-14.7)
[2019-02-15 05:26] LABS: PTT 41.2 SEC (22.9-36.1)
[2019-02-15 05:39] LABS: Anion Gap 10 mmol/L (10-20); BUN (Urea Nitrogen) 20 mg/dL (8.9-20.6); Calc. Creatinine Clearance 68 mL/min (70-130); Calcium 8.1 mg/dL (7.8-10.44); Carbon Dioxide 23 mmol/L (22-29); Chloride 107 mmol/L (98-107); Estimated GFR-MDRD 50; Glucose 156 mg/dL (70-105); Potassium 3.9 mmol/L (3.5-5.1); Sodium 136 mmol/L (136-145)
[2019-02-15] MEDS: Metoprolol Tartrate 50 MG TAB PO SCH (06:24)
[2019-02-15] MEDS: HumaLOG 300 UNITS/3 ML VIAL SC PRN (06:25)
[2019-02-15] MEDS ORDERED: Albumin 5% 500 ML ONE (06:33)
[2019-02-15] MEDS ORDERED: Fentanyl 100 MCG/2 ML VIAL ONE ×2 (06:35→12:07)
[2019-02-15] MEDS ORDERED: Midazolam HCl 2 mg/2 ml Vial ONE (06:35)
[2019-02-15] MEDS ORDERED: Midazolam HCl 5 mg/5 ml Vial ONE (06:35)
[2019-02-15] MEDS ORDERED: Dexmedetomidine 200 MCG/2 ML VIAL ONE (06:36)
[2019-02-15] MEDS ORDERED: Vecuronium 10 MG VIAL ONE ×2 (06:36→15:27)
[2019-02-15] MEDS ORDERED: Heparin 10,000 UNITS/1 ML VIAL 30,000 UNITS in Sodium Chloride 0.9% 1,000 ML FS SCH (07:00)
[2019-02-15] MEDS ORDERED: cefTRIAXone\\ROCEPHIN 1 GM VIAL ONE (08:02)
[2019-02-15] MEDS ORDERED: Furosemide 20 MG/2 ML VIAL ONE (08:04)
[2019-02-15] MEDS ORDERED: Post-Op Insulin Drip Protocol IVPB ONE (12:02)
[2019-02-15] MEDS ORDERED: Potassium Chloride 20 MEQ/100 ML PREMIX BAG IVPB PRN (12:02)
[2019-02-15] MEDS ORDERED: niCARdipine 25 MG in Sodium Chloride 0.9% 250 ML 250 ML IVPB PRN (12:02)
[2019-02-15] MEDS ORDERED: Norepinephrine 8 MG/0.9% NS 250 ML IVPB PRN (12:02)
[2019-02-15] MEDS ORDERED: Promethazine HCl 25 MG/ML VIAL SLOW IVP PRN (12:02)
[2019-02-15] MEDS ORDERED: Morphine 2 MG/ML SYRINGE SLOW IVP PRN (12:02)
[2019-02-15] MEDS ORDERED: Nitroglycerin 50 MG/250 ML BOT 250 ML IVPB PRN (12:02)
[2019-02-15] MEDS ORDERED: Guaifenesin DM 100-10/5 ML UDCUP PO PRN (12:02)
[2019-02-15] MEDS ORDERED: Mag-Al 1200 mg/1200 mg/30 ML UDCUP PO PRN (12:02)
[2019-02-15] MEDS ORDERED: DOPamine 400 MG/D5W 250 ML 250 ML IVPB PRN (12:02)
[2019-02-15] MEDS ORDERED: Bisacodyl 10 MG SUPP PR PRN (12:02)
[2019-02-15] MEDS ORDERED: Magnesium 2 GM/50 ML 2 GM in Premix Bag 1 BAG IVPB SCH (12:02)
[2019-02-15] MEDS ORDERED: Hetastarch 6% 500 ML 500 ML IVPB PRN (12:02)
--- NOTE | 2019-02-15 12:09 | PRG ---
DATE OF SERVICE: 02/15/2019 SUBJECTIVE: A 33-year-old gentleman, being seen for acute kidney injury. The patient denied nausea, vomiting, or chest pain. The patient is intubated. OBJECTIVE: GENERAL: The is patient is resting. VITAL SIGNS: Afebrile. Pulse 95, breathing 16, blood pressure 142/84. GENERAL APPEARANCE AND MENTAL STATUS: Fair. HEAD/NECK: Normocephalic. Atraumatic. EYES: EOMI. No deformity. EARS: Clear. No ulcers. NOSE: Intact. No lesions. MOUTH: Clear. No discharge. THROAT: Clear. No exudate. LUNGS: Clear. No crackles. CARDIAC: S1, S2. No rub. ABDOMEN: Benign. Bowel sounds positive. GENITALIA/RECTUM: Conroy absent. BACK/EXTREMITIES: Edema 0+. NEUROLOGICAL: Alert and motor intact. SKIN: LYMPHATICS: LABORATORY DATA: Reviewed. ASSESSMENT AND PLAN: 1. Acute kidney injury, improved. 2. Hypertension, stable. 3. Anemia, stable. 4. Medication based on GFR, appropriate. Creatinine is at baseline. No further evaluation or workup needed. I will sign off on this patient. Please reconsult as needed. Job ID: [id number]
[2019-02-15] MEDS ORDERED: Potassium Chloride 20 MEQ in Premix Bag 1 BAG IVPB PRN (12:15)
[2019-02-15] MEDS ORDERED: Dextrose 5% in Water 1,000 ML IV PRN (12:20)
[2019-02-15] MEDS ORDERED: Dextrose 50% Abboject 50 ML SYRINGE SLOW IVP PRN (12:20)
[2019-02-15] MEDS ORDERED: HUMULIN R 100 UNITS in Sodium Chloride 0.9% 100 ML IVPB SCH (12:20)
[2019-02-15 12:39] LABS: #Basophils 0.1 thou/uL (0.0-0.2); #Eosinphils 0.3 thou/uL (0.0-0.7); #Lymphocytes 1.3 thou/uL (1.20-3.40); #Monocytes 0.6 thou/uL (0.11-0.59); #Neutrophils 12.7 thou/uL (1.40-6.50); %Basophils 0.4 % (0.0-1.0); %Lymphocytes 8.7 % (21.0-51.0); %Monocytes 4.2 % (0.0-10.0); %Neutrophils 84.7 % (42.0-75.0); Hemoglobin 11.1 g/dL (14.0-18.0); Mean Corpuscular Hemoglobin 28.5 pg (27.0-31.0); Mean Corpuscular Volume 86.2 fL (78.0-98.0); Mean Platelet Volume 7.8 fL (7.4-10.4); Platelet Count 247 thou/uL (130-400); RBC Distribution Width 13.1 % (11.5-14.5)
--- NOTE | 2019-02-15 12:43 | RAD ---
EXAM: Single view of the chest HISTORY: Status post open heart surgery COMPARISON: 02/14/2019 FINDINGS: Single view of the chest shows an enlarged cardiomediastinal silhouette. The patient is st atus post CABG. Bilateral chest tubes are seen without evidence of pneumothorax. A mediastinal drain is seen. A central venous catheter seen with its tip at the atriocaval junction. There is no ev idence of consolidation, mass, or pleural effusion. The bones are unremarkable. IMPRESSION: Appropriate position of lines and tubes status post sternotomy.
[2019-02-15 12:45] LABS: INR-International Normal Ratio 1.2; PTT 33.1 SEC (22.9-36.1); Prothrombin Time 15.5 SEC (12.0-14.7)
[2019-02-15 13:00] LABS: Anion Gap 11 mmol/L (10-20); BUN (Urea Nitrogen) 21 mg/dL (8.9-20.6); Calc. Creatinine Clearance 64 mL/min (70-130); Calcium 7.5 mg/dL (7.8-10.44); Carbon Dioxide 21 mmol/L (22-29); Chloride 110 mmol/L (98-107); Estimated GFR-MDRD 46; Glucose 183 mg/dL (70-105); Sodium 137 mmol/L (136-145)
[2019-02-15] MEDS: Sodium Chloride 0.9% 1,000 ML IV SCH (13:06)
[2019-02-15] MEDS: Fentanyl 100 MCG/2 ML VIAL SLOW IVP PRN ×4 (13:07→21:56)
[2019-02-15] MEDS: Acetaminophen 1,000 MG in Premix Bag 1 BAG IVPB SCH ×2 (14:38→21:17)
[2019-02-15] MEDS: cefTRIAXone\\ROCEPHIN 1 GM in Sodium Chloride 0.9% 100 ML IVPB SCH (14:45)
--- NOTE | 2019-02-15 15:01 | OP ---
DATE OF PROCEDURE: 02/15/2019 PREOPERATIVE DIAGNOSIS: Coronary artery disease. PROCEDURE PERFORMED: Coronary artery bypass graft x5; good quality BOOTH to a 2.5 mm left anterior descending, saphenous vein graft to somewhat large to a 2 mm PDA, a 1.5-mm ramus, a 1.25 mm obtuse marginal, and 1.25 mm posterolateral. REFUSE COLLECTOR: Will Perez MD TRANSFUSION: None. DESCRIPTION OF PROCEDURE: After adequate anesthesia had been obtained, the patient was prepped and draped and Dr. Perez did an endovascular vein harvest of the left greater saphenous vein while I performed a median sternotomy. Left internal mammary artery was harvested, and after heparinization, divided distally. Both pleural spaces were intentionally opened and about a liter of pleural fluid was aspirated from each. The pericardium was then opened and the aorta dissected above the pericardial reflection, following which aortic and right atrial cannulation were performed. Cardiopulmonary bypass was begun. Aorta was crossclamped, and after a liter of cold [place] cardioplegic solution, the 5 distal anastomoses were completed and the crossclamp was removed. Partial occluding clamp was placed, and the ramus graft and the right PDA graft were anastomosed to the aortic root. A partial occluding clamp was then removed and the diagonal vein graft was then anastomosed to the side of the ramus graft and the posterolateral vein graft anastomosed to the side of the PDA vein graft. The patient was then weaned from cardiopulmonary bypass. Cannula was removed and protamine was given systemically. Mediastinal and bilateral pleural drains were then placed. Following this, the sternum was reapproximated with #7 interrupted wire using vancomycin paste on the sternal edges, platelet-rich blood, and platelet-poor plasma. Subcutaneous tissue was closed with [id number] sutures, following which the skin was closed. The patient is to be taken to the ICU in guarded condition. Job ID: [id number]
[2019-02-15] MEDS ORDERED: Papaverine 60 MG/2 ML VIAL ONE (15:27)
[2019-02-15] MEDS ORDERED: Ondansetron PF 4 MG/2 ML Vial ONE (15:27)
[2019-02-15] MEDS ORDERED: Heparin 5,000 UNITS/ML VIAL ONE (15:27)
[2019-02-15] MEDS ORDERED: Glycopyrrolate 0.2 MG/ML 5 ML SYRINGE ONE (15:27)
[2019-02-15] MEDS ORDERED: Nitroglycerin 50 MG/250 ML BOT ONE (15:27)
[2019-02-15] MEDS ORDERED: Lidocaine 1% PF 5 ML VIAL ONE (15:27)
[2019-02-15] MEDS ORDERED: Potassium Chloride 60 MEQ/30 ML VIAL ONE (15:27)
[2019-02-15] MEDS ORDERED: Heparin 30,000 units/30 ml VIAL ONE (15:27)
[2019-02-15] MEDS ORDERED: Protamine Sulfate 250 MG/25 ML VIAL ONE (15:27)
[2019-02-15] MEDS ORDERED: Lidocaine 2% PF 5 ML VIAL ONE (15:27)
[2019-02-15] MEDS ORDERED: PROPOFOL 200 MG/20 ML VIAL ONE (15:27)
[2019-02-15] MEDS ORDERED: DOPamine 400 MG/10 ML VIAL ONE (15:27)
[2019-02-15] MEDS ORDERED: Sodium Bicarb 50 MEQ/50 ML Abboject 8.4% SYRINGE ONE (15:27)
[2019-02-15] MEDS ORDERED: Dexamethasone 20 MG/5 ML VIAL ONE (15:27)
[2019-02-15] MEDS ORDERED: Calcium Chloride 1 GM/10 ML Abboject SYRINGE ONE (15:27)
[2019-02-15] MEDS ORDERED: Ketorolac Tromethamine 30 MG/ML VIAL ONE (15:27)
[2019-02-15] MEDS ORDERED: Thrombin 5000 UNITS/5 ML VIAL ONE (15:27)
[2019-02-15] MEDS ORDERED: PHENYLEPHRINE-NS 100 MCG/ML 10 ML SYRINGE ONE (15:27)
[2019-02-15] MEDS ORDERED: Magnesium Sulfate 1 GM/2 ML VIAL ONE (15:27)
[2019-02-15] MEDS ORDERED: Cardioplegic Soln 1,000 ML BAG ONE (15:27)
[2019-02-15] MEDS ORDERED: ePHEDrine/0.9% NaCl/PF SYRINGE 50 mg/10 ml ONE (15:27)
[2019-02-15] MEDS ORDERED: Aminocaproic Acid 5 GM/20 ML VIAL ONE (15:27)
--- NOTE | 2019-02-15 17:34 | CON ---
DATE OF CONSULTATION: HISTORY OF PRESENT ILLNESS: Shankar Crowell is a 33-year-old gentleman, who was admitted to the hospital with chest pain, worsening renal failure, and congestive heart failure. He has been in the hospital since 02/10. Underwent bypass today. He is off the vent. Complaining of pain and difficulty breathing. Coughing up some bloody sputum when he arrived on admission. PAST MEDICAL HISTORY: He has multiple medical history; end-stage renal disease, hypertension, peripheral vascular disease, and diabetes uncontrolled. PAST SURGICAL HISTORY: Previous surgeries including amputation of left lower leg and bypass surgery. SOCIAL HISTORY: Alcohol minimal. Still smoking a pack a day. He is disabled. HOME MEDICATIONS: Includes insulin Lantus 20 units twice a day. ALLERGIES: MUSHROOM. PHYSICAL EXAMINATION: VITAL SIGNS: Post CABG extubation; saturations are 96, pulse is 100, and blood pressure is elevated, he is on nitroglycerin drip, 164/74. Respirations 18 and afebrile. CHEST: Bilateral crackles and rhonchi. CARDIAC: Normal S1 and S2. No gallops. ABDOMEN: No masses. LABORATORY DATA: White count of 15,000. Creatinine is 1.7, BUN is 21, and glucose is 160. X-ray shows CHF. His echocardiogram done on admission shows his EF was about 40%. ASSESSMENT: Coronary artery disease status post coronary artery bypass grafting, congestive heart failure, diabetes, and renal failure. PLAN: Pulmonary will follow while in the ICU. For the time being, pain relief, supportive care, and neb treatments. Consultation note, 70 minutes, 50% direct patient care. Job ID: [id number]
[2019-02-15 18:20] LABS: Hemoglobin 9.6 g/dL (14.0-18.0)
--- NOTE | 2019-02-15 18:20 | PDOC.HOSPP ---
- Subjective Encounter Date: 02/15/19 Encounter Time: 18:20 Subjective: f/u s/p CABG x 5v, CAD, DM I. c/o pain post-op on chest. Extubated remaining on O2 via NC. - Objective Vital Signs & Weight: Vital Signs (12 hours) Temp Pulse Resp BP Pulse Ox 02/15/19 14:00 99 02/15/19 12:44 73 21 H 100 02/15/19 12:18 98.4 F 73 15 118/48 L 100 Weight Weight 2.614 oz Most Recent Monitor Data Heart Rate from ECG 75 NIBP 117/61 NIBP BP-Mean 79 Respiration from ECG 10 SpO2 100 I&O: 02/14/19 02/15/19 02/16/19 06:59 06:59 06:59 Intake Total 2086 2562 2461 Output Total 1375 1950 195 Balance 813 880 8955 Result Diagrams: 02/15/19 17:52 02/15/19 17:52 Additional Labs: Accuchecks 02/15/19 02/15/19 02/15/19 17:06 16:08 15:11 POC Glucose 102 120 H 143 H 02/15/19 02/15/19 02/15/19 14:09 13:02 12:25 POC Glucose 140 H 153 H 174 H 02/15/19 02/15/19 02/15/19 11:57 11:23 10:29 POC Glucose 160 H 149 H 136 H 02/15/19 02/15/19 02/15/19 09:50 09:08 08:19 POC Glucose 127 H 120 H 130 H 02/14/19 21:45 POC Glucose 142 H Radiology Reviewed by me: Yes (PCXR - lines/tubes in appropriate position) EKG Reviewed by me: Yes (Tele - SR) Hospitalist ROS - Medication Medications: Active Medications Generic Name Dose Route Start Last Admin Trade Name Freq PRN Reason Stop Dose Admin Albumin Human 12.5 gm 02/15/19 12:02 02/15/19 15:14 Albumin 5% IVPB 02/16/19 12:03 12.5 gm Q6H PRN Administration To Maintain SBP> 90 mmHG Albuterol/Ipratropium 3 ml 02/15/19 13:00 02/15/19 12:44 Duoneb NEB 3 ml [id number] WALTER Administration Fentanyl 25 mcg 02/15/19 12:02 02/15/19 13:07 Sublimaze SLOW IVP 02/17/19 11:53 25 mcg Q2H PRN Administration Moderate Pain (4-6) Fentanyl 50 mcg 02/15/19 12:02 02/15/19 15:57 Sublimaze SLOW IVP 02/17/19 11:53 50 mcg Q2H PRN Administration Severe Pain (7-10) Ceftriaxone Sodium 1 gm/ 100 mls @ 200 mls/hr 02/11/19 14:00 02/15/19 14:45 Sodium Chloride IVPB 100 mls Q24HR WALTER Administration Sodium Chloride 1,000 mls @ 100 mls/hr 02/15/19 12:02 02/15/19 13:06 Normal Saline 0.9% IV 1,000 mls .Q10H WALTER Administration Insulin Human Regular 100 101 mls @ 0 mls/hr 02/15/19 12:20 02/15/19 13:13 units/ Sodium Chloride IVPB 101 mls INF WALTER Administration Protocol As Directed Acetaminophen 1,000 mg/ Device 100 mls @ 400 mls/hr 02/15/19 13:00 02/15/19 14:38 IVPB 02/16/19 13:01 100 mls Q8H WALTER Administration - Exam General Appearance: ill appearing General - other findings: lethargic, pale Eye: PERRL, anicteric sclera ENT: normocephalic atraumatic, no oropharyngeal lesions, dry oral mucosa Neck: supple, symmetric, no JVD, no thyromegaly Heart: RRR, no gallops, no rubs, normal peripheral pulses Heart - other findings: midline sternotomy dressing Respiratory: CTAB, no wheezes, no rales, no ronchi Gastrointestinal: soft, non-tender, non-distended, normal bowel sounds, no palpable masses Extremities: no cyanosis, no clubbing, no edema Skin: normal turgor, no lesions Neurological: cranial nerve grossly intact, no new deficit Musculoskeletal: normal tone, generalized weakness Psychiatric: oriented to person, oriented to place, somnolent, lethargic Hosp A/P (1) NSTEMI (non-ST elevated myocardial infarction) Code(s): I21.4 - NON-ST ELEVATION (NSTEMI) MYOCARDIAL INFARCTION Status: Acute Plan: s/p LHC with multiple areas of stenosis/occlusion, s/p CABG x 5v (2) ANIYAH (acute kidney injury) Code(s): N17.9 - ACUTE KIDNEY FAILURE, UNSPECIFIED Status: Acute Plan: Improved, continue volume replacement, avoid nephrotoxic meds and limit contrast exposure (3) CAD (coronary artery disease) Code(s): I25.10 - ATHSCL HEART DISEASE OF [place] CORONARY ARTERY W/O ANG PCTRS Status: Chronic Plan: See above (4) CKD (chronic kidney disease) stage 3, GFR 30-59 ml/min Code(s): N18.3 - CHRONIC KIDNEY DISEASE, STAGE 3 (MODERATE) Status: Chronic (5) Tobacco abuse Code(s): Z72.0 - TOBACCO USE Status: Chronic (6) DM type 1 (diabetes mellitus, type 1) Status: Chronic Qualifiers: Diabetes mellitus complication status: with kidney complications Diabetes mellitus complication detail: with chronic kidney disease Chronic kidney disease stage: stage 3 (moderate) Qualified Code(s): E10.22 - Type 1 diabetes mellitus with diabetic chronic kidney disease; N18.3 - Chronic kidney disease, stage 3 (moderate) Plan: ISS, ADA, serial accuchecks - Plan continue antibiotics, PT/OT, social and human services assistant, speech therapy, respiratory therapy, out of bed/ambulate, DVT proph w/SCDs Stable currently Continue Lipitor ASA resumed OOB/ambulate Daily weights/I&O's AM lab: BMP, CBC
[2019-02-15] MEDS: HYDROcodone/Acetaminophen 5/325 mg Tablet PO PRN (19:46)
[2019-02-15] MEDS: Atorvastatin Calcium 20 MG TAB PO SCH (21:17)
[2019-02-15] MEDS: Famotidine/PF 20 mg/2ml Vial SLOW IVP SCH (21:17)
[2019-02-16] MEDS: HYDROcodone/Acetaminophen 5/325 mg Tablet PO PRN ×3 (00:42→22:00)
[2019-02-16] MEDS: Sodium Chloride 0.9% 1,000 ML IV SCH ×4 (00:48→22:03)
[2019-02-16] MEDS: Acetaminophen 1,000 MG in Premix Bag 1 BAG IVPB SCH (13:26)
[2019-02-16] MEDS: cefTRIAXone\\ROCEPHIN 1 GM in Sodium Chloride 0.9% 100 ML IVPB SCH ×2 (13:27→14:00)
[2019-02-16] MEDS: Famotidine/PF 20 mg/2ml Vial SLOW IVP SCH (13:27)
[2019-02-16] MEDS: Aspirin 325 MG TAB PO SCH (13:27)
--- NOTE | 2019-02-16 13:53 | PRG ---
DATE OF SERVICE: 02/16/2019 SUBJECTIVE: This morning, he is awake, alert, responsive, in no distress, still having chest pain from the bypass surgery. OBJECTIVE: VITAL SIGNS: Pulse 76, respiratory rate 18, blood pressure 116/63, temperature 99. CHEST: No wheezing, crackles. CARDIAC: Normal S1, S2. No gallops. ABDOMEN: No mass. IMPRESSION: Status post coronary artery bypass graft, diabetes, severe deconditioning, pain. X-ray shows left-sided infiltrate, pleural effusion. PLAN: Continue aggressive PT, supportive care, diuretics. We will follow. Job ID: [id number]
[2019-02-16] MEDS: Ondansetron PF 4 MG/2 ML Vial IVP PRN ×2 (14:10→18:13)
--- NOTE | 2019-02-16 14:36 | PQF ---
CLINICAL DOCUMENTATION IMPROVEMENT CLARIFICATION FORM: ICD-10 Updated PLEASE DO AN ADDENDUM TO THE PROGRESS NOTE WITH ANY DOCUMENTATION UPDATES OR ADDITIONS AND CARRY THROUGH TO DC SUMMARY. THANK YOU. DATE: 02/16/2019 ATTN: Dr. Gabriel Please exercise your independent, professional judgment in responding to the clarification form. Clinical indicators are provided on the bottom of this form for your review Please check appropriate box(s) to clarify if the following diagnosis has been ruled in or ruled out: SEPSIS [ ] Ruled in diagnosis [ ] Continue to treat [ ] Resolved [ x ] Ruled out diagnosis [ ] Cannot rule out diagnosis [ ] Other diagnosis [ ] Unable to determine In addition, please specify: Present on Admission (POA): [ ] Yes [ x ] No [ ] Unable to determine For continuity of documentation, please document condition throughout progress notes and discharge summary. Thank You. CLINICAL INDICATORS - SIGNS / SYMPTOMS / LABS / RESULTS AND LOCATION IN MR H&P 02/10: VS: BP 157/95; pulse 101; resp. rate is 22, temp 98.2 Pneumonia. PN 02/11: ([place]) VS: Temp 101.[address] chest personally reviewed - with bilateral pleural effusions & airspace opacities Pneumonia Sepsis Respiratory failure. Related to pneumonia and new CHF and NSTEMI PN 02/14 ([place]) NSTEMI ANIYAH RISKS: H&P 02/10: Hx Diabetes type 1, CKD 3. Assessment: Pneumonia PN 12 ([place]) ANIYAH TREATMENT: MAR: Order 02/10: Rocephin 1 gm IV q 24 hr MAR: Order 02/10-02/11: Zithromax 500mg IV. Thank you, Darshana (This form is maintained as a part of the permanent medical record) 2014 [employer]. All Rights Reserved Darshana Nielson RN, BSN [email or web address] Office: [phone] [facility]
[2019-02-16 15:37] LABS: Hemoglobin 9.2 g/dL (14.0-18.0)
[2019-02-16] MEDS: Fentanyl 100 MCG/2 ML VIAL SLOW IVP PRN ×3 (15:39→22:34)
--- NOTE | 2019-02-16 15:50 | PRG ---
DATE OF SERVICE: 02/16/2019 SUBJECTIVE: A 33-year-old gentleman, being seen for acute kidney injury. The patient denied nausea, vomiting, or chest pain. OBJECTIVE: CONSTITUTIONAL: The patient is awake and alert. VITAL SIGNS: Afebrile. Pulse 91, breathing 16, blood pressure 151/79. Awake, alert, in no acute distress. GENERAL APPEARANCE AND MENTAL STATUS: Fair. HEAD/NECK: Normocephalic. Atraumatic. EYES: EOMI. No deformity. EARS: Clear. No ulcers. NOSE: Intact. No lesions. MOUTH: Clear. No discharge. THROAT: Clear. No exudate. LUNGS: Clear. No crackles. CARDIAC: S1, S2. No rub. ABDOMEN: Benign. Bowel sounds positive. GENITALIA/RECTUM: Conroy absent. BACK/EXTREMITIES: Edema 0+. NEUROLOGICAL: Alert and motor intact. SKIN: LYMPHATICS: LABORATORY DATA: Lab showed hemoglobin 9.6. Creatinine is pending for today. ASSESSMENT AND PLAN: 1. Acute kidney injury with chronic kidney disease, recheck labs. 2. Hypertension, stable. 3. Anemia, stable. 4. Medication based on GFR appropriate. Job ID: [id number]
[2019-02-16 16:03] LABS: Anion Gap 13 mmol/L (10-20); BUN (Urea Nitrogen) 37 mg/dL (8.9-20.6); Calc. Creatinine Clearance 0 mL/min (70-130); Calcium 7.8 mg/dL (7.8-10.44); Carbon Dioxide 20 mmol/L (22-29); Chloride 105 mmol/L (98-107); Estimated GFR-MDRD 29; Glucose 214 mg/dL (70-105); Potassium 5.7 mmol/L (3.5-5.1); Sodium 132 mmol/L (136-145)
--- NOTE | 2019-02-16 16:12 | RAD ---
CHEST 1 VIEW: INDICATION: Status post open heart surgery. COMPARISON: Prior exam dated 02/15/2019. FINDINGS: Midline sternotomy changes, mediastinal drain, and bilateral thoracostomy tubes are stable. Right rojo bclavian central venous catheter is stable. No pneumothorax is evident. Cardiomegaly persists. Pul monary vascular congestion and perihilar edema persist. No pneumothorax is evident. Small left pleu ral effusion is now present. There is slight worsening opacity in the left lower lobe. IMPRESSION: 1. Stable postop tubes and lines. 2. Worsening airspace opacity in the retrocardiac left lower lobe with small left pleural effusion a nd may reflect atelectasis with small left pleural effusion. 3. Persistent cardiomegaly, pulmonary vascular congestion, and central edema pattern. 4. No pneumothorax. POS: OFF
[2019-02-16] MEDS: Insulin Regular 300 UNITS/3 ML VIAL SC PRN ×2 (16:38→20:26)
[2019-02-16 17:40] LABS: Anion Gap 12 mmol/L (10-20); BUN (Urea Nitrogen) 32 mg/dL (8.9-20.6); Calc. Creatinine Clearance 0 mL/min (70-130); Carbon Dioxide 21 mmol/L (22-29); Chloride 108 mmol/L (98-107); Estimated GFR-MDRD 34; Potassium 5.2 mmol/L (3.5-5.1); Sodium 136 mmol/L (136-145)
[2019-02-16 17:41] LABS: Calcium 7.5 mg/dL (7.8-10.44); Glucose 104 mg/dL (70-105)
--- NOTE | 2019-02-16 18:04 | PDOC.HOSPP ---
- Subjective Encounter Date: 02/16/19 Encounter Time: 17:00 Subjective: f/u s/p CABG x 5v POD #1. Feels weak but better overall. BP improved per nursing. Sat in chair 4h today. - Objective Vital Signs & Weight: Vital Signs (12 hours) Temp 02/16/19 16:00 99.1 F 02/16/19 13:00 99.0 F Weight Weight 2.614 oz Most Recent Monitor Data Heart Rate from ECG 90 NIBP 142/75 NIBP BP-Mean 97 Respiration from ECG 15 SpO2 99 I&O: 02/15/19 02/16/19 02/17/19 06:59 06:59 06:59 Intake Total 2562 3411.9 960 Output Total 1950 570 590 Balance 612 2841.9 370 Result Diagrams: 02/16/19 15:14 02/16/19 15:14 Additional Labs: Accuchecks 02/16/19 02/16/19 02/16/19 16:11 11:41 08:00 POC Glucose 228 H 201 H 137 H 02/16/19 02/16/19 02/16/19 07:02 06:22 05:11 POC Glucose 133 H 116 H 100 02/16/19 02/16/19 02/16/19 03:01 02:03 00:55 POC Glucose 107 89 87 02/15/19 02/15/19 02/15/19 23:19 21:27 20:06 POC Glucose 105 113 H 120 H 02/15/19 02/15/19 19:15 18:01 POC Glucose 119 H 111 H Microbiology 02/10/19 11:21 Venous blood - Right Arm Blood Culture - Preliminary NO GROWTH AT 48 HOURS 02/10/19 11:11 Venous blood - Right Hand Blood Culture - Preliminary NO GROWTH AT 48 HOURS Laboratory Tests 02/10/19 02/10/19 02/10/19 09:53 09:53 16:19 WBC Hgb Potassium Creatinine 1.53 H Troponin I 0.922 H* 0.862 H* 02/10/19 02/11/19 02/11/19 19:40 03:59 03:59 WBC 11.9 H Hgb 8.3 L Potassium Creatinine 1.85 H Troponin I 0.907 H* 02/11/19 02/11/19 02/11/19 11:26 11:26 11:26 WBC Hgb 8.8 L Potassium Creatinine 1.89 H Troponin I 0.724 H* 02/11/19 02/12/19 02/12/19 14:30 05:54 05:54 WBC 12.1 H Hgb 8.0 L Potassium Creatinine 2.02 H Troponin I 0.680 H* 02/13/19 02/13/19 02/13/19 03:15 03:15 08:56 WBC 9.4 Hgb 8.0 L 8.6 L Potassium Creatinine 2.41 H Troponin I 02/13/19 02/15/19 02/15/19 11:12 05:01 12:23 WBC Hgb 8.6 L Potassium Creatinine 1.60 H 1.70 H Troponin I 02/15/19 02/15/19 02/16/19 12:27 17:52 03:30 WBC 15.0 H Hgb 11.1 L 9.6 L Potassium 5.2 H Creatinine 2.25 H Troponin I Radiology Reviewed by me: Yes (PCXR - LLL effusion, lines/tubes in place) EKG Reviewed by me: Yes (Tele - SR) Hospitalist ROS - Medication Medications: Active Medications Generic Name Dose Route Start Last Admin Trade Name Freq PRN Reason Stop Dose Admin Hydrocodone Bitart/Acetaminophen 2 tab 02/15/19 12:02 02/16/19 00:42 [place] 5/325 PO 2 tab Q4H PRN Administration Severe Pain (7-10) Albuterol/Ipratropium 3 ml 02/15/19 13:00 02/16/19 13:28 Duoneb NEB Not Given [id number] WALTER Aspirin 325 mg 02/16/19 09:00 02/16/19 13:27 Aspirin PO Not Given DAILY WALTER Atorvastatin Calcium 20 mg 02/15/19 21:00 02/15/19 21:17 Lipitor PO 20 mg HS WALTER Administration Fentanyl 25 mcg 02/15/19 12:02 02/15/19 19:44 Sublimaze SLOW IVP 02/17/19 11:53 25 mcg Q2H PRN Administration Moderate Pain (4-6) Fentanyl 50 mcg 02/15/19 12:02 02/16/19 15:39 Sublimaze SLOW IVP 02/17/19 11:53 50 mcg Q2H PRN Administration Severe Pain (7-10) Ceftriaxone Sodium 1 gm/ 100 mls @ 200 mls/hr 02/11/19 14:00 02/16/19 13:27 Sodium Chloride IVPB Not Given Q24HR WALTER Dopamine HCl/Dextrose 250 mls @ 0 mls/hr 02/15/19 12:02 02/15/19 18:34 Dopamine 400 Mg/D5w 250 Ml IVPB 250 mls PRN PRN Administration To maintain SBP > 90 mmHG Protocol Titrate Sodium Chloride 1,000 mls @ 100 mls/hr 02/15/19 12:02 02/16/19 16:34 Normal Saline 0.9% IV Not Given .Q10H WALTER Insulin Human Regular 100 101 mls @ 0 mls/hr 02/15/19 12:20 02/15/19 13:13 units/ Sodium Chloride IVPB 101 mls INF WALTER Administration Protocol As Directed Insulin Human Regular 0 units 02/15/19 12:20 02/16/19 16:38 Humulin R SC 6 unit Q4H PRN Administration POST CABG SLIDING SCALE Protocol Ondansetron HCl 4 mg 02/15/19 12:02 02/16/19 14:10 Zofran IVP 4 mg Q6H PRN Administration Nausea/Vomiting - Exam General Appearance: NAD, awake alert Eye: PERRL, anicteric sclera ENT: normocephalic atraumatic, no oropharyngeal lesions Neck: supple, symmetric, no JVD, no thyromegaly Heart: RRR, no murmur, no gallops, no rubs Respiratory: no ronchi Respiratory - other findings: diminished in bases, midline sternal incision intact Gastrointestinal: soft, non-tender, non-distended, normal bowel sounds Extremities: no cyanosis, no clubbing Skin: normal turgor, no lesions Neurological: cranial nerve grossly intact, no new deficit Musculoskeletal: normal tone, normal strength Psychiatric: normal affect, A&O x 3 Hosp A/P (1) CAD (coronary artery disease) Code(s): I25.10 - ATHSCL HEART DISEASE OF [place] CORONARY ARTERY W/O ANG PCTRS Status: Chronic Plan: s/p CABG x 5v POD #1, continue ASA/Lipitor (2) NSTEMI (non-ST elevated myocardial infarction) Code(s): I21.4 - NON-ST ELEVATION (NSTEMI) MYOCARDIAL INFARCTION Status: Acute Plan: See above (3) ANIYAH (acute kidney injury) Code(s): N17.9 - ACUTE KIDNEY FAILURE, UNSPECIFIED Status: Acute Plan: Avoid nephrotoxic meds and limit contrast exposure, serial creatinine, monitor outputs (4) CKD (chronic kidney disease) stage 3, GFR 30-59 ml/min Code(s): N18.3 - CHRONIC KIDNEY DISEASE, STAGE 3 (MODERATE) Status: Chronic (5) Tobacco abuse Code(s): Z72.0 - TOBACCO USE Status: Chronic (6) DM type 1 (diabetes mellitus, type 1) Status: Chronic Qualifiers: Diabetes mellitus complication status: with kidney complications Diabetes mellitus complication detail: with chronic kidney disease Chronic kidney disease stage: stage 3 (moderate) Qualified Code(s): E10.22 - Type 1 diabetes mellitus with diabetic chronic kidney disease; N18.3 - Chronic kidney disease, stage 3 (moderate) Plan: ISS, ADA, serial accuchecks - Plan plan discussed w/ family, continue antibiotics, PT/OT, oncology social worker, respiratory therapy, out of bed/ambulate, DVT proph w/SCDs Stable currently Continue Lipitor ASA resumed OOB/ambulate Daily weights/I&O's AM lab: BMP, CBC Likely transition to telemetry in 24h
[2019-02-16] MEDS ORDERED: Sodium Bicarb 50 MEQ/50 ML VIAL ONE (18:09)
[2019-02-16] MEDS ORDERED: Sodium Bicarb 50 MEQ/50 ML VIAL IVP SCH (18:15)
[2019-02-16 19:23] LABS: %Eosinophils 0.6 % (0.0-10.0); %Lymphocytes 15.2 % (21.0-51.0); %Monocytes 11.4 % (0.0-10.0); %Neutrophils 72.4 % (42.0-75.0); Hemoglobin 9.1 g/dL (14.0-18.0); Mean Corpuscular HGB CONC 32.6 g/dL (32.0-36.0); Mean Corpuscular Hemoglobin 28.5 pg (27.0-31.0); Mean Corpuscular Volume 87.6 fL (78.0-98.0); Mean Platelet Volume 8.2 fL (7.4-10.4); Platelet Count 254 thou/uL (130-400); RBC Distribution Width 13.5 % (11.5-14.5); Red Blood Cell (RBC) Count 3.19 mill/uL (4.70-6.10); White Blood Cell (WBC) Count 12.5 thou/uL (4.8-10.8)
[2019-02-16 19:24] LABS: #Basophils 0.1 thou/uL (0.0-0.2); #Eosinphils 0.1 thou/uL (0.0-0.7); #Lymphocytes 1.9 thou/uL (1.20-3.40); #Monocytes 1.4 thou/uL (0.11-0.59); #Neutrophils 9.1 thou/uL (1.40-6.50); %Basophils 0.5 % (0.0-1.0)
[2019-02-16] MEDS: Atorvastatin Calcium 20 MG TAB PO SCH (20:14)
[2019-02-16 20:50] LABS: Anion Gap 12 mmol/L (10-20); BUN (Urea Nitrogen) 38 mg/dL (8.9-20.6); Calc. Creatinine Clearance 0 mL/min (70-130); Carbon Dioxide 24 mmol/L (22-29); Chloride 105 mmol/L (98-107); Estimated GFR-MDRD 29; Glucose 169 mg/dL (70-105); Potassium 5.3 mmol/L (3.5-5.1); Sodium 136 mmol/L (136-145)
[2019-02-17] MEDS: Fentanyl 100 MCG/2 ML VIAL SLOW IVP PRN ×2 (00:44→05:52)
[2019-02-17] MEDS: Ondansetron PF 4 MG/2 ML Vial IVP PRN ×3 (00:44→21:22)
[2019-02-17] MEDS: Bisacodyl 5 MG TAB PO PRN (00:51)
[2019-02-17] MEDS: HYDROcodone/Acetaminophen 5/325 mg Tablet PO PRN ×4 (03:12→20:06)
[2019-02-17] MEDS: Insulin Regular 300 UNITS/3 ML VIAL SC PRN ×4 (03:22→20:10)
[2019-02-17 03:38] LABS: #Basophils 0.1 thou/uL (0.0-0.2); #Eosinphils 0.4 thou/uL (0.0-0.7); #Lymphocytes 1.4 thou/uL (1.20-3.40); #Monocytes 1.1 thou/uL (0.11-0.59); #Neutrophils 9.4 thou/uL (1.40-6.50); %Basophils 0.6 % (0.0-1.0); %Lymphocytes 11.6 % (21.0-51.0); %Monocytes 9.2 % (0.0-10.0); %Neutrophils 75.6 % (42.0-75.0); Hemoglobin 8.3 g/dL (14.0-18.0); Mean Corpuscular HGB CONC 33.2 g/dL (32.0-36.0); Mean Corpuscular Volume 87.5 fL (78.0-98.0); Mean Platelet Volume 8.6 fL (7.4-10.4); Platelet Count 215 thou/uL (130-400); RBC Distribution Width 13.5 % (11.5-14.5); Red Blood Cell (RBC) Count 2.87 mill/uL (4.70-6.10); White Blood Cell (WBC) Count 12.4 thou/uL (4.8-10.8)
[2019-02-17 03:58] LABS: Anion Gap 15 mmol/L (10-20); BUN (Urea Nitrogen) 42 mg/dL (8.9-20.6); Calc. Creatinine Clearance 0 mL/min (70-130); Calcium 7.9 mg/dL (7.8-10.44); Carbon Dioxide 20 mmol/L (22-29); Chloride 105 mmol/L (98-107); Estimated GFR-MDRD 29; Glucose 165 mg/dL (70-105); Potassium 5.1 mmol/L (3.5-5.1); Sodium 135 mmol/L (136-145)
[2019-02-17] MEDS: Sodium Chloride 0.9% 1,000 ML IV SCH ×2 (04:22→21:38)
--- NOTE | 2019-02-17 08:10 | RAD ---
SINGLE VIEW OF THE CHEST: COMPARISON: 02/16/2019. HISTORY: Status post open heart surgery. FINDINGS: A single view of the chest shows an enlarged but stable cardiomediastinal silhouette. The patient is status post CABG. The lines and tubes are unchanged in position. There appear to be small bilatera l pleural effusions, left greater than right. No pneumothorax is appreciated. IMPRESSION: Stable exam. POS: [facility]
[2019-02-17] MEDS ORDERED: Insulin Glargine 15 UNITS in Pre-Filled Syringe 1 EACH SC SCH ×2 (09:00→21:00)
[2019-02-17] MEDS ORDERED: Famotidine/PF 20 mg/2ml Vial SLOW IVP SCH (09:00)
--- NOTE | 2019-02-17 09:08 | PRG ---
DATE OF SERVICE: 02/17/2019 SUBJECTIVE: A 33-year-old gentleman, post CABG. X-ray shows large left pleural effusion, but he is actually asymptomatic. OBJECTIVE: VITAL SIGNS: Pulse 100, respiratory rate 24, saturations are 99% on 2 L, blood pressure 141/88. I's and O's, 3411 in and 570 out. CHEST: Decreased breath sounds. No wheezing. CARDIAC: Normal S1, S2. No gallops. ABDOMEN: No masses. LABORATORY DATA: Creatinine 2.53. Lytes are normal. White count 12,000. IMPRESSION: Status post coronary artery bypass graft, diabetes, azotemia, left pleural effusion. PLAN: Continue empiric antibiotics, diabetic medication, diuretics, supportive care. We will follow. Job ID: [id number]
[2019-02-17] MEDS: Aspirin 325 MG TAB PO SCH (09:29)
[2019-02-17] MEDS: Famotidine 20 MG TAB PO SCH (09:30)
[2019-02-17] MEDS: Polyethylene Glycol 3350 17 GM Packet PO SCH (09:32)
[2019-02-17] MEDS: Benzonatate 100 MG CAP PO SCH ×3 (09:55→21:26)
[2019-02-17] MEDS ORDERED: Furosemide 40 MG/4 ML VIAL SLOW IVP SCH (10:45)
--- NOTE | 2019-02-17 13:05 | PRG ---
DATE OF SERVICE: 02/17/2019 SUBJECTIVE: This is a 33-year-old gentleman being seen for acute kidney injury. The patient denied nausea, vomiting or chest pain. OBJECTIVE: See above. The patient awake, alert. VITAL SIGNS: Afebrile, pulse 75, breathing 16, blood pressure 140/88. GENERAL APPEARANCE AND MENTAL STATUS: Fair. HEAD/NECK: Normocephalic. Atraumatic. EYES: EOMI. No deformity. EARS: Clear. No ulcers. NOSE: Intact. No lesions. MOUTH: Clear. No discharge. THROAT: Clear. No exudate. LUNGS: Clear. No crackles. CARDIAC: S1, S2. No rub. ABDOMEN: Benign. Bowel sounds positive. GENITALIA/RECTUM: Conroy absent. BACK/EXTREMITIES: Edema 0+. NEUROLOGICAL: Alert and motor intact. SKIN: LYMPHATICS: LABORATORY DATA: Showed hemoglobin 8.3, creatinine 2.5. ASSESSMENT AND PLAN: 1. Chronic kidney disease stage 4, stable. Acute kidney injury due to chronic diabetic nephropathy, stable. 2. Hypertension, stable. 3. Hyperkalemia, stable. No indication for dialysis. 4. Congestive heart failure. Continue Lasix. Job ID: [id number]
[2019-02-17] MEDS: cefTRIAXone\\ROCEPHIN 1 GM in Sodium Chloride 0.9% 100 ML IVPB SCH (14:54)
[2019-02-17] MEDS ORDERED: Morphine 4 MG/ML VIAL SLOW IVP SCH (18:00)
[2019-02-17] MEDS: Furosemide 40 MG/4 ML VIAL SLOW IVP SCH (18:13)
--- NOTE | 2019-02-17 19:06 | PDOC.HOSPP ---
- Subjective Encounter Date: 02/17/19 Encounter Time: 17:35 Subjective: f/u s/p CABG x 5v POD #2. c/o pain with coughing or moving. Tolerating diet, Nepro BID. - Objective Vital Signs & Weight: Vital Signs (12 hours) Temp Pulse Resp Pulse Ox 02/17/19 18:53 97 18 100 02/17/19 16:00 97.8 F 02/17/19 15:06 93 19 99 02/17/19 13:00 100 02/17/19 12:00 98.9 F 02/17/19 08:25 99 02/17/19 08:23 100 24 H 99 02/17/19 08:00 98.4 F 97 Weight Weight 169 lb 5.04 oz Most Recent Monitor Data Heart Rate from ECG 94 NIBP 144/83 NIBP BP-Mean 103 Respiration from ECG 25 SpO2 100 I&O: 02/16/19 02/17/19 02/18/19 06:59 06:59 06:59 Intake Total 3411.9 1921 1180 Output Total 570 1235 920 Balance 2841.9 686 260 Result Diagrams: 02/17/19 03:20 02/17/19 03:20 Additional Labs: Accuchecks 02/17/19 02/17/19 02/17/19 15:58 08:19 03:24 POC Glucose 219 H 158 H 165 H 02/17/19 02/16/19 00:27 20:26 POC Glucose 136 H 165 H Microbiology 02/10/19 11:21 Venous blood - Right Arm Blood Culture - Preliminary NO GROWTH AT 48 HOURS 02/10/19 11:11 Venous blood - Right Hand Blood Culture - Preliminary NO GROWTH AT 48 HOURS Laboratory Tests 02/10/19 02/10/19 02/10/19 09:53 09:53 16:19 WBC Hgb Potassium Creatinine 1.53 H Troponin I 0.922 H* 0.862 H* 02/10/19 02/11/19 02/11/19 19:40 03:59 03:59 WBC 11.9 H Hgb 8.3 L Potassium Creatinine 1.85 H Troponin I 0.907 H* 02/11/19 02/11/19 02/11/19 11:26 11:26 11:26 WBC Hgb 8.8 L Potassium Creatinine 1.89 H Troponin I 0.724 H* 02/11/19 02/12/19 02/12/19 14:30 05:54 05:54 WBC 12.1 H Hgb 8.0 L Potassium Creatinine 2.02 H Troponin I 0.680 H* 02/13/19 02/13/19 02/13/19 03:15 03:15 08:56 WBC 9.4 Hgb 8.0 L 8.6 L Potassium Creatinine 2.41 H Troponin I 02/13/19 02/15/19 02/15/19 11:12 05:01 12:23 WBC Hgb 8.6 L Potassium Creatinine 1.60 H 1.70 H Troponin I 02/15/19 02/15/19 02/16/19 12:27 17:52 03:30 WBC 15.0 H Hgb 11.1 L 9.6 L Potassium 5.2 H Creatinine 2.25 H Troponin I Radiology Reviewed by me: Yes (PCXR - L>R pleural effusion) EKG Reviewed by me: Yes (Tele - SR) Hospitalist ROS - Medication Medications: Active Medications Generic Name Dose Route Start Last Admin Trade Name Freq PRN Reason Stop Dose Admin Hydrocodone Bitart/Acetaminophen 2 tab 02/15/19 12:02 02/17/19 14:54 [place] 5/325 PO 2 tab Q4H PRN Administration Severe Pain (7-10) Albuterol/Ipratropium 3 ml 02/15/19 13:00 02/17/19 18:53 Duoneb NEB 3 ml [id number] WALTER Administration Aspirin 325 mg 02/16/19 09:00 02/17/19 09:29 Aspirin PO 325 mg DAILY WALTER Administration Atorvastatin Calcium 20 mg 02/15/19 21:00 02/16/19 20:14 Lipitor PO 20 mg HS WALTER Administration Benzonatate 100 mg 02/17/19 09:00 02/17/19 15:01 Tessalon PO 100 mg TID WALTER Administration Bisacodyl 10 mg 02/15/19 12:02 02/17/19 00:51 Dulcolax PO 10 mg Q12H PRN Administration Constipation Famotidine 20 mg 02/17/19 09:00 02/17/19 09:30 Pepcid PO 20 mg DAILY WALTER Administration Furosemide 20 mg 02/17/19 14:00 02/17/19 18:13 Lasix SLOW IVP 20 mg 0600,1400 WALTER Administration Ceftriaxone Sodium 1 gm/ 100 mls @ 200 mls/hr 02/11/19 14:00 02/17/19 14:54 Sodium Chloride IVPB 100 mls Q24HR WALTER Administration Dopamine HCl/Dextrose 250 mls @ 0 mls/hr 02/15/19 12:02 02/15/19 18:34 Dopamine 400 Mg/D5w 250 Ml IVPB 250 mls PRN PRN Administration To maintain SBP > 90 mmHG Protocol Titrate Sodium Chloride 1,000 mls @ 30 mls/hr 02/16/19 22:00 02/16/19 22:03 Normal Saline 0.9% IV 1,000 mls .Q24H WALTER Administration Insulin Glargine 15 units/ 0.15 mls @ 0 mls/hr 02/17/19 09:00 02/17/19 09:30 Miscellaneous Medication SC 0.15 mls QAM WALTER Administration Insulin Human Regular 0 units 02/15/19 12:20 02/17/19 15:57 Humulin R SC 6 unit Q4H PRN Administration POST CABG SLIDING SCALE Protocol Morphine Sulfate 4 mg 02/17/19 18:00 02/17/19 18:13 Morphine SLOW IVP 02/17/19 20:00 4 mg NOW WALTER Administration Ondansetron HCl 4 mg 02/15/19 12:02 02/17/19 09:33 Zofran IVP 4 mg Q6H PRN Administration Nausea/Vomiting Polyethylene Glycol 17 gm 02/17/19 09:00 02/17/19 09:32 Miralax PO Not Given DAILY WALTER - Exam General Appearance: ill appearing General - other findings: pale, alert Eye: PERRL, anicteric sclera ENT: normocephalic atraumatic, no oropharyngeal lesions Neck: supple, symmetric, no JVD, no thyromegaly Heart: RRR, no murmur, no gallops, no rubs Respiratory: no wheezes Respiratory - other findings: diminished bilat from mid-field to bases Gastrointestinal: soft, non-tender, non-distended, normal bowel sounds, no palpable masses Extremities: no cyanosis, 1+ LE edema Skin: normal turgor, no lesions Neurological: cranial nerve grossly intact, no new deficit Musculoskeletal: normal tone, generalized weakness Psychiatric: A&O x 3, flat affect Hosp A/P (1) CAD (coronary artery disease) Code(s): I25.10 - ATHSCL HEART DISEASE OF [place] CORONARY ARTERY W/O ANG PCTRS Status: Chronic Plan: Continue med mgmt, ASA/Lipitor/beta-debby (2) NSTEMI (non-ST elevated myocardial infarction) Code(s): I21.4 - NON-ST ELEVATION (NSTEMI) MYOCARDIAL INFARCTION Status: Acute Plan: See above, s/p CABG x 5v POD #2 (3) ANIYAH (acute kidney injury) Code(s): N17.9 - ACUTE KIDNEY FAILURE, UNSPECIFIED Status: Acute Plan: Persistent, avoid nephrotoxic meds and limit contrast exposure, serial creatinine (4) CKD (chronic kidney disease) stage 3, GFR 30-59 ml/min Code(s): N18.3 - CHRONIC KIDNEY DISEASE, STAGE 3 (MODERATE) Status: Chronic (5) Tobacco abuse Code(s): Z72.0 - TOBACCO USE Status: Chronic Plan: Smoking cessation resources (6) DM type 1 (diabetes mellitus, type 1) Status: Chronic Qualifiers: Diabetes mellitus complication status: with kidney complications Diabetes mellitus complication detail: with chronic kidney disease Chronic kidney disease stage: stage 3 (moderate) Qualified Code(s): E10.22 - Type 1 diabetes mellitus with diabetic chronic kidney disease; N18.3 - Chronic kidney disease, stage 3 (moderate) Plan: ISS, Glargine, ADA - Plan plan discussed w/ family, continue antibiotics, PT/OT, bilingual social worker, respiratory therapy, out of bed/ambulate, DVT proph w/SCDs Stable currently Continue Lipitor ASA resumed OOB/ambulate Daily weights/I&O's AM lab: BMP, CBC Likely transition to telemetry in 24h
[2019-02-17] MEDS: Acetaminophen 325 MG TAB PO PRN (21:19)
[2019-02-17] MEDS: hydrALAZINE 20 MG/ML VIAL SLOW IVP PRN (21:19)
[2019-02-17] MEDS: Atorvastatin Calcium 20 MG TAB PO SCH (21:22)
--- NOTE | 2019-02-17 21:25 | EKG ---
Test Reason : POST CABG Blood Pressure : / mmHG Vent. Rate : 072 BPM Atrial Rate : 072 BPM P-R Int : 154 ms QRS Dur : 086 ms QT Int : 434 ms P-R-T Axes : 051 028 071 degrees QTc Int : 475 ms Normal sinus rhythm T wave abnormality, consider lateral ischemia Prolonged QT Abnormal ECG When compared with ECG of 12-FEB-2019 05:00, ST no longer depressed in Inferior leads ST no longer depressed in Anterior leads Nonspecific T wave abnormality no longer evident in Inferior leads Confirmed by Miladys GILMORE ([id number]) on 02/17/2019 9:24:35 PM Referred By: LUCÍA Confirmed By:Miladys GILMORE
[2019-02-17] MEDS: Morphine 4 MG/ML VIAL SLOW IVP PRN (23:08)
[2019-02-18] MEDS: Insulin Regular 300 UNITS/3 ML VIAL SC PRN ×2 (00:15→03:59)
[2019-02-18] MEDS: HYDROcodone/Acetaminophen 5/325 mg Tablet PO PRN ×3 (04:04→20:21)
[2019-02-18] MEDS: hydrALAZINE 20 MG/ML VIAL SLOW IVP PRN (04:06)
[2019-02-18 05:02] LABS: #Eosinphils 0.5 thou/uL (0.0-0.7); #Lymphocytes 1.7 thou/uL (1.20-3.40); #Neutrophils 7.4 thou/uL (1.40-6.50); %Basophils 0.4 % (0.0-1.0); %Eosinophils 4.8 % (0.0-10.0); %Lymphocytes 15.7 % (21.0-51.0); %Monocytes 9.6 % (0.0-10.0); %Neutrophils 69.4 % (42.0-75.0); Hemoglobin 7.8 g/dL (14.0-18.0); Mean Corpuscular HGB CONC 32.1 g/dL (32.0-36.0); Mean Corpuscular Hemoglobin 28.3 pg (27.0-31.0); Mean Platelet Volume 9.1 fL (7.4-10.4); Platelet Count 226 thou/uL (130-400); RBC Distribution Width 13.6 % (11.5-14.5); Red Blood Cell (RBC) Count 2.77 mill/uL (4.70-6.10); White Blood Cell (WBC) Count 10.7 thou/uL (4.8-10.8)
[2019-02-18 05:21] LABS: Anion Gap 12 mmol/L (10-20); BUN (Urea Nitrogen) 48 mg/dL (8.9-20.6); Calc. Creatinine Clearance 47 mL/min (70-130); Calcium 8.3 mg/dL (7.8-10.44); Carbon Dioxide 23 mmol/L (22-29); Chloride 103 mmol/L (98-107); Estimated GFR-MDRD 31; Glucose 256 mg/dL (70-105); Sodium 133 mmol/L (136-145)
[2019-02-18] MEDS: Furosemide 40 MG/4 ML VIAL SLOW IVP SCH ×3 (05:41→15:07)
[2019-02-18] MEDS: Bisacodyl 5 MG TAB PO PRN (05:52)
[2019-02-18] MEDS: Acetaminophen 325 MG TAB PO PRN (05:52)
[2019-02-18] MEDS: Ondansetron PF 4 MG/2 ML Vial IVP PRN ×2 (05:52→20:23)
[2019-02-18] MEDS: Morphine 4 MG/ML VIAL SLOW IVP PRN ×2 (06:11→13:20)
--- NOTE | 2019-02-18 08:06 | PRG ---
DATE OF SERVICE: 02/18/2019 DISCUSSION: This morning, he is awake, alert, and responsive. X-ray shows small a left pleural effusion. OBJECTIVE: VITAL SIGNS: Pulse 113, blood pressure 130/80, respiratory rate 18, saturations are 98%. CHEST: No wheezing, crackles. CARDIAC: Normal S1, S2. No gallop. ABDOMEN: No masses. LABORATORY DATA: Creatinine 2.4. H and H is stable. X-ray shows small pleural effusion. ASSESSMENT: Status post coronary artery bypass grafting, azotemia, diabetes, deconditioning, pleural effusion. PLAN: Continue PT, supportive care. Disposition as per Surgery. Job ID: [id number]
[2019-02-18] MEDS: Insulin Glargine 20 UNITS in Pre-Filled Syringe 1 EACH SC SCH ×2 (08:34→20:14)
[2019-02-18] MEDS: Famotidine 20 MG TAB PO SCH (08:34)
[2019-02-18] MEDS: Benzonatate 100 MG CAP PO SCH ×3 (08:34→20:14)
[2019-02-18] MEDS: Aspirin 325 MG TAB PO SCH (08:34)
[2019-02-18] MEDS: Polyethylene Glycol 3350 17 GM Packet PO SCH (08:44)
--- NOTE | 2019-02-18 10:03 | RAD ---
PORTABLE CHEST ONE VIEW: 02/18/2019 4:13 a.m. HISTORY: Postop open heart surgery. COMPARISON: Exam from the previous day. FINDINGS: Allowing for differences in technique, no significant interval change is seen. POS: [facility]
--- NOTE | 2019-02-18 10:45 | PRG ---
DATE OF SERVICE: 02/18/2019 SUBJECTIVE: This is a 33-year-old gentleman, being seen for acute kidney injury. The patient denies any nausea, vomiting or chest pain. OBJECTIVE: See above. GENERAL: The patient is awake and alert. VITAL SIGNS: Afebrile, pulse 106, breathing 16, blood pressure 134/80. GENERAL APPEARANCE AND MENTAL STATUS: Fair. HEAD/NECK: Normocephalic. Atraumatic. EYES: EOMI. No deformity. EARS: Clear. No ulcers. NOSE: Intact. No lesions. MOUTH: Clear. No discharge. THROAT: Clear. No exudate. LUNGS: Clear. No crackles. CARDIAC: S1, S2. No rub. ABDOMEN: Benign. Bowel sounds positive. GENITALIA/RECTUM: Conroy absent. BACK/EXTREMITIES: Edema 0+. NEUROLOGICAL: Alert and motor intact. SKIN: LYMPHATICS: LABORATORY DATA: Showed hemoglobin 7.8. Creatinine is 2.4. ASSESSMENT AND PLAN: 1. Acute kidney injury with chronic kidney disease stage 3, stable. 2. Acute tubular necrosis, improved. 3. Hyperkalemia, stable. 4. Metabolic acidosis, stable. No indication for dialysis. Continue Lasix as needed. Job ID: [id number]
[2019-02-18] MEDS: Carvedilol 3.125 MG TAB PO SCH ×2 (15:07→20:14)
[2019-02-18] MEDS: cefTRIAXone\\ROCEPHIN 1 GM in Sodium Chloride 0.9% 100 ML IVPB SCH (15:08)
--- NOTE | 2019-02-18 16:25 | PDOC.HOSPP ---
- Subjective Encounter Date: 02/18/19 Encounter Time: 16:20 Subjective: f/u s/p CABG x 5v POD #3. SOB improved and no fever. - Objective Vital Signs & Weight: Vital Signs (12 hours) Temp Pulse Resp Pulse Ox 02/18/19 13:22 108 H 28 H 97 02/18/19 12:00 98.3 F 02/18/19 11:00 98.3 F 02/18/19 08:00 97 02/18/19 07:00 98.7 F 02/18/19 06:58 108 H 22 H 98 Weight Weight 172 lb 2.896 oz Most Recent Monitor Data Heart Rate from ECG 101 NIBP 171/91 NIBP BP-Mean 117 Respiration from ECG 23 SpO2 100 I&O: 02/17/19 02/18/19 02/19/19 06:59 06:59 06:59 Intake Total 1921 1540 300 Output Total 1235 2355 1305 Balance 308 -892 -2768 Result Diagrams: 02/18/19 03:55 02/18/19 03:55 Additional Labs: Accuchecks 02/18/19 02/18/19 02/18/19 14:22 13:09 06:12 POC Glucose 156 H 68 L 175 H 02/18/19 02/18/19 02/17/19 03:58 00:12 20:13 POC Glucose 255 H 360 H 329 H 02/17/19 02/17/19 15:58 11:22 POC Glucose 219 H 215 H Microbiology 02/10/19 11:21 Venous blood - Right Arm Blood Culture - Preliminary NO GROWTH AT 48 HOURS 02/10/19 11:11 Venous blood - Right Hand Blood Culture - Preliminary NO GROWTH AT 48 HOURS Laboratory Tests 02/10/19 02/10/19 02/10/19 09:53 09:53 16:19 WBC Hgb Potassium Creatinine 1.53 H Troponin I 0.922 H* 0.862 H* 02/10/19 02/11/19 02/11/19 19:40 03:59 03:59 WBC 11.9 H Hgb 8.3 L Potassium Creatinine 1.85 H Troponin I 0.907 H* 02/11/19 02/11/19 02/11/19 11:26 11:26 11:26 WBC Hgb 8.8 L Potassium Creatinine 1.89 H Troponin I 0.724 H* 02/11/19 02/12/19 02/12/19 14:30 05:54 05:54 WBC 12.1 H Hgb 8.0 L Potassium Creatinine 2.02 H Troponin I 0.680 H* 02/13/19 02/13/19 02/13/19 03:15 03:15 08:56 WBC 9.4 Hgb 8.0 L 8.6 L Potassium Creatinine 2.41 H Troponin I 02/13/19 02/15/19 02/15/19 11:12 05:01 12:23 WBC Hgb 8.6 L Potassium Creatinine 1.60 H 1.70 H Troponin I 02/15/19 02/15/19 02/16/19 12:27 17:52 03:30 WBC 15.0 H Hgb 11.1 L 9.6 L Potassium 5.2 H Creatinine 2.25 H Troponin I Laboratory Tests 02/11/19 02/12/19 02/13/19 03:59 05:54 03:15 Hgb 8.3 L 8.0 L 8.0 L Creatinine 02/15/19 02/16/19 02/16/19 05:01 15:14 15:14 Hgb 9.2 L Creatinine 1.60 H 2.52 H 02/16/19 02/17/19 20:06 03:20 Hgb 8.3 L Creatinine 2.56 H Radiology Reviewed by me: Yes (PCXR - no acute changes) EKG Reviewed by me: Yes (Tele -SR) Hospitalist ROS - Medication Medications: Active Medications Generic Name Dose Route Start Last Admin Trade Name Freq PRN Reason Stop Dose Admin Acetaminophen 650 mg 02/15/19 12:02 02/18/19 05:52 Tylenol PO 650 mg Q6H PRN Administration Headache/Fever Or Mild Pain Hydrocodone Bitart/Acetaminophen 2 tab 02/15/19 12:02 02/18/19 15:08 [place] 5/325 PO 2 tab Q4H PRN Administration Severe Pain (7-10) Albuterol/Ipratropium 3 ml 02/15/19 13:00 02/18/19 13:22 Duoneb NEB 3 ml [id number] WALTER Administration Aspirin 325 mg 02/16/19 09:00 02/18/19 08:34 Aspirin PO 325 mg DAILY WALTER Administration Atorvastatin Calcium 20 mg 02/15/19 21:00 02/17/19 21:22 Lipitor PO 20 mg HS WALTER Administration Benzonatate 100 mg 02/17/19 09:00 02/18/19 15:19 Tessalon PO Not Given TID WALTER Bisacodyl 10 mg 02/15/19 12:02 02/18/19 05:52 Dulcolax PO 10 mg Q12H PRN Administration Constipation Carvedilol 3.125 mg 02/18/19 15:00 02/18/19 15:07 Coreg PO 3.125 mg TID WALTER Administration Famotidine 20 mg 02/17/19 09:00 02/18/19 08:34 Pepcid PO 20 mg DAILY WALTER Administration Furosemide 40 mg 02/18/19 06:00 02/18/19 15:07 Lasix SLOW IVP 40 mg 0600,1400 WALTER Administration Hydralazine HCl 10 mg 02/15/19 12:02 02/18/19 04:06 Apresoline SLOW IVP 10 mg Q6H PRN Administration To Maintain SBP< 140mmHG Ceftriaxone Sodium 1 gm/ 100 mls @ 200 mls/hr 02/11/19 14:00 02/18/19 15:08 Sodium Chloride IVPB 100 mls Q24HR WALTER Administration Dopamine HCl/Dextrose 250 mls @ 0 mls/hr 02/15/19 12:02 02/15/19 18:34 Dopamine 400 Mg/D5w 250 Ml IVPB 250 mls PRN PRN Administration To maintain SBP > 90 mmHG Protocol Titrate Insulin Glargine 20 units/ 0.2 mls @ 0 mls/hr 02/18/19 09:00 02/18/19 08:34 Miscellaneous Medication SC 0.2 mls QAM WALTER Administration Insulin Human Regular 0 units 02/15/19 12:20 02/18/19 03:59 Humulin R SC 8 unit Q4H PRN Administration POST CABG SLIDING SCALE Protocol Morphine Sulfate 4 mg 02/17/19 18:01 02/18/19 13:20 Morphine SLOW IVP 4 mg Q4H PRN Administration Pain 7-10 Ondansetron HCl 4 mg 02/15/19 12:02 02/18/19 05:52 Zofran IVP 4 mg Q6H PRN Administration Nausea/Vomiting Polyethylene Glycol 17 gm 02/17/19 09:00 02/18/19 08:44 Miralax PO Not Given DAILY WALTER Promethazine HCl 6.25 mg 02/15/19 12:02 02/18/19 08:44 Phenergan SLOW IVP 6.25 mg Q4H PRN Administration Nausea/Vomiting - Exam General Appearance: NAD, awake alert Eye: PERRL, anicteric sclera ENT: normocephalic atraumatic, no oropharyngeal lesions Neck: supple, symmetric, no JVD, no thyromegaly Heart: RRR, no gallops, no rubs, normal peripheral pulses Heart - other findings: midline incision intact Respiratory: no wheezes Respiratory - other findings: diminished in bases Gastrointestinal: soft, non-tender, non-distended, normal bowel sounds Extremities: no cyanosis, 1+ LE edema Skin: normal turgor, no lesions Neurological: cranial nerve grossly intact, no new deficit Musculoskeletal: normal tone, normal strength Psychiatric: A&O x 3 Hosp A/P (1) CAD (coronary artery disease) Code(s): I25.10 - ATHSCL HEART DISEASE OF [place] CORONARY ARTERY W/O ANG PCTRS Status: Chronic Plan: s/p CABG x 5v POD #3, continue routine post-CABG protocol, ASA/Lipitor/Coreg (2) NSTEMI (non-ST elevated myocardial infarction) Code(s): I21.4 - NON-ST ELEVATION (NSTEMI) MYOCARDIAL INFARCTION Status: Acute Plan: See above (3) ANIYAH (acute kidney injury) Code(s): N17.9 - ACUTE KIDNEY FAILURE, UNSPECIFIED Status: Acute Plan: Mild improvement, continue supportive mgmt, avoid nephrotoxic meds and limit contrast (4) CKD (chronic kidney disease) stage 3, GFR 30-59 ml/min Code(s): N18.3 - CHRONIC KIDNEY DISEASE, STAGE 3 (MODERATE) Status: Chronic (5) Tobacco abuse Code(s): Z72.0 - TOBACCO USE Status: Chronic (6) DM type 1 (diabetes mellitus, type 1) Status: Chronic Qualifiers: Diabetes mellitus complication status: with kidney complications Diabetes mellitus complication detail: with chronic kidney disease Chronic kidney disease stage: stage 3 (moderate) Qualified Code(s): E10.22 - Type 1 diabetes mellitus with diabetic chronic kidney disease; N18.3 - Chronic kidney disease, stage 3 (moderate) Plan: ISS, continue Glargine 20u sc BID, ADA - Plan PT/OT, protective services social worker, respiratory therapy, out of bed/ambulate Stable currently Continue Lipitor ASA resumed OOB/ambulate Daily weights/I&O's AM lab: BMP, CBC Likely transition to telemetry in 24h
[2019-02-18] MEDS: Atorvastatin Calcium 20 MG TAB PO SCH (20:14)
[2019-02-19] MEDS: Insulin Regular 300 UNITS/3 ML VIAL SC PRN ×3 (00:05→21:10)
[2019-02-19] MEDS: Morphine 4 MG/ML VIAL SLOW IVP PRN ×2 (04:26→08:45)
[2019-02-19 04:43] LABS: #Basophils 0.1 thou/uL (0.0-0.2); #Eosinphils 0.5 thou/uL (0.0-0.7); #Lymphocytes 1.9 thou/uL (1.20-3.40); #Monocytes 0.8 thou/uL (0.11-0.59); #Neutrophils 5.6 thou/uL (1.40-6.50); %Basophils 0.7 % (0.0-1.0); %Eosinophils 5.8 % (0.0-10.0); %Lymphocytes 21.4 % (21.0-51.0); %Monocytes 9.3 % (0.0-10.0); %Neutrophils 62.9 % (42.0-75.0); Hemoglobin 7.3 g/dL (14.0-18.0); Mean Corpuscular HGB CONC 32.8 g/dL (32.0-36.0); Mean Corpuscular Hemoglobin 29.1 pg (27.0-31.0); Mean Corpuscular Volume 88.9 fL (78.0-98.0); Mean Platelet Volume 8.5 fL (7.4-10.4); Platelet Count 265 thou/uL (130-400); RBC Distribution Width 13.4 % (11.5-14.5); White Blood Cell (WBC) Count 8.9 thou/uL (4.8-10.8)
[2019-02-19 04:55] LABS: Anion Gap 12 mmol/L (10-20); BUN (Urea Nitrogen) 57 mg/dL (8.9-20.6); Calc. Creatinine Clearance 50 mL/min (70-130); Calcium 8.3 mg/dL (7.8-10.44); Carbon Dioxide 25 mmol/L (22-29); Chloride 103 mmol/L (98-107); Estimated GFR-MDRD 33; Glucose 209 mg/dL (70-105); Potassium 4.7 mmol/L (3.5-5.1); Sodium 135 mmol/L (136-145)
[2019-02-19] MEDS: Furosemide 40 MG/4 ML VIAL SLOW IVP SCH ×2 (06:04→17:29)
[2019-02-19] MEDS: HYDROcodone/Acetaminophen 5/325 mg Tablet PO PRN ×4 (06:23→21:04)
[2019-02-19] MEDS: Polyethylene Glycol 3350 17 GM Packet PO SCH ×2 (08:24→08:41)
[2019-02-19] MEDS: Insulin Glargine 20 UNITS in Pre-Filled Syringe 1 EACH SC SCH ×2 (08:24→20:53)
[2019-02-19] MEDS: Carvedilol 3.125 MG TAB PO SCH (08:33)
[2019-02-19] MEDS: Aspirin 325 MG TAB PO SCH (08:33)
[2019-02-19] MEDS: Famotidine 20 MG TAB PO SCH (08:33)
[2019-02-19] MEDS: Benzonatate 100 MG CAP PO SCH ×3 (08:38→20:51)
[2019-02-19] MEDS ORDERED: Carvedilol 3.125 MG TAB PO SCH (09:29)
[2019-02-19] MEDS: Carvedilol 6.25 MG TAB PO SCH ×3 (09:47→20:51)
[2019-02-19] MEDS: Ondansetron PF 4 MG/2 ML Vial IVP PRN ×3 (11:58→21:10)
[2019-02-19] MEDS ORDERED: Zolpidem Tartrate 5 MG TAB PO PRN (12:00)
[2019-02-19] MEDS ORDERED: Mineral Oil ENEMA PR PRN (12:00)
[2019-02-19] MEDS ORDERED: Nitroglycerin 0.4 MG TAB (25 Tab Bottle) SL PRN (12:00)
[2019-02-19] MEDS ORDERED: Dextrose 5% in Water 1,000 ML IV PRN (12:07)
[2019-02-19] MEDS ORDERED: Dextrose 50% Abboject 50 ML SYRINGE SLOW IVP PRN (12:07)
--- NOTE | 2019-02-19 14:03 | PRG ---
DATE OF SERVICE: 02/19/2019 SUBJECTIVE: A 33-year-old male, being seen for acute kidney injury. The patient denied any nausea, vomiting, or chest pain. OBJECTIVE: See above. Awake, alert, in no acute distress. VITAL SIGNS: Afebrile, pulse 88, breathing 16, blood pressure 141/78. GENERAL APPEARANCE AND MENTAL STATUS: Fair. HEAD/NECK: Normocephalic. Atraumatic. EYES: EOMI. No deformity. EARS: Clear. No ulcers. NOSE: Intact. No lesions. MOUTH: Clear. No discharge. THROAT: Clear. No exudate. LUNGS: Clear. No crackles. CARDIAC: S1, S2. No rub. ABDOMEN: Benign. Bowel sounds positive. GENITALIA/RECTUM: Conroy absent. BACK/EXTREMITIES: Edema 0+. NEUROLOGICAL: Alert and motor intact. SKIN: LYMPHATICS: LABORATORY DATA: Hemoglobin 7.3. Creatinine 2.3. ASSESSMENT AND PLAN: 1. Chronic kidney disease, stage 3, stable. 2. Acute kidney injury, improved. 3. Hyperkalemia, stable. No indication for dialysis. 4. I would recommend transfusion for anemia. Job ID: [id number]
--- NOTE | 2019-02-19 14:55 | PRG ---
DATE OF SERVICE: 02/19/2019 SERVICE: Pulmonary Medicine. INTERVAL HISTORY: The patient is doing really well from respiratory standpoint. He has been weaned down to 2 L nasal cannula. Denies any chest discomfort, nausea , or vomiting. Otherwise, there were no significant overnight events. PHYSICAL EXAMINATION: VITAL SIGNS: Afebrile, pulse 88, blood pressure 163/88, respirations 18, saturation 100%, currently on 2 L nasal cannula. GENERAL: The patient is awake and alert, in no apparent distress. LUNGS: Decent air entry. No prolonged expiratory phase or wheezing is appreciated. HEART: Normal rate, regular. ABDOMEN: Soft, nontender, nondistended, bowel sounds are positive. MUSCULOSKELETAL: No cyanosis or clubbing. No pitting in the bilateral lower extremities. NEUROLOGIC: Grossly nonfocal. LABORATORY DATA: WBC 8.9, hemoglobin 7.3, and platelets 265,000. Sodium 135. Creatinine 2.31, which is roughly stable. Basic metabolic profile is otherwise unremarkable. Urinalysis and urine drug screen are negative. Blood cultures x2 are unremarkable. IMAGING: Chest x-ray previously demonstrated cardiomegaly. There is a right subclavian central venous catheter in good position. At this time, thoracostomy tube and mediastinal drains were still present. I did not see any obvious consolidating lesions present, though there is likely some atelectasis in the left base. ASSESSMENT: 1. Acute hypoxic respiratory failure, improving. 2. Coronary artery disease, status post coronary artery bypass graft, postop day #4. 3. Type 2 diabetes mellitus. 4. Acute kidney injury on chronic kidney disease III. 5. Pleural effusion. DISCUSSION AND PLAN: At this point, the patient remains stable for transition to the floor. Pulmonary will follow intermittently while the patient remains inhouse. Please call with additional questions or concerns through time. Job ID: [id number] MTDD
[2019-02-19] MEDS: Atorvastatin Calcium 20 MG TAB PO SCH (20:51)
[2019-02-19] MEDS: Bisacodyl 5 MG TAB PO PRN (22:41)
[2019-02-20] MEDS: Furosemide 40 MG/4 ML VIAL SLOW IVP SCH (05:01)
[2019-02-20] MEDS: HYDROcodone/Acetaminophen 5/325 mg Tablet PO PRN ×3 (05:06→20:52)
[2019-02-20] MEDS: Insulin Regular 300 UNITS/3 ML VIAL SC PRN ×3 (05:09→20:53)
[2019-02-20 05:34] LABS: #Basophils 0.1 thou/uL (0.0-0.2); #Eosinphils 0.5 thou/uL (0.0-0.7); #Lymphocytes 1.8 thou/uL (1.20-3.40); #Monocytes 0.8 thou/uL (0.11-0.59); #Neutrophils 4.7 thou/uL (1.40-6.50); %Eosinophils 6.8 % (0.0-10.0); %Lymphocytes 22.4 % (21.0-51.0); %Monocytes 10.2 % (0.0-10.0); %Neutrophils 59.7 % (42.0-75.0); Hemoglobin 7.2 g/dL (14.0-18.0); Mean Corpuscular HGB CONC 32.4 g/dL (32.0-36.0); Mean Corpuscular Hemoglobin 28.9 pg (27.0-31.0); Mean Corpuscular Volume 89.1 fL (78.0-98.0); Mean Platelet Volume 7.9 fL (7.4-10.4); Platelet Count 324 thou/uL (130-400); RBC Distribution Width 13.1 % (11.5-14.5); Red Blood Cell (RBC) Count 2.49 mill/uL (4.70-6.10); White Blood Cell (WBC) Count 7.9 thou/uL (4.8-10.8)
[2019-02-20 05:42] LABS: Anion Gap 13 mmol/L (10-20); BUN (Urea Nitrogen) 54 mg/dL (8.9-20.6); Calc. Creatinine Clearance 58 mL/min (70-130); Calcium 8.5 mg/dL (7.8-10.44); Carbon Dioxide 27 mmol/L (22-29); Chloride 102 mmol/L (98-107); Estimated GFR-MDRD 39; Glucose 141 mg/dL (70-105); Potassium 4.4 mmol/L (3.5-5.1); Sodium 138 mmol/L (136-145)
[2019-02-20] MEDS: Benzonatate 100 MG CAP PO SCH ×3 (08:10→20:51)
[2019-02-20] MEDS: Famotidine 20 MG TAB PO SCH (08:10)
[2019-02-20] MEDS: Aspirin 325 mg Enteric Coated Tablet PO SCH (08:10)
[2019-02-20] MEDS: Carvedilol 6.25 MG TAB PO SCH ×5 (08:10→20:51)
[2019-02-20] MEDS: Ondansetron PF 4 MG/2 ML Vial IVP PRN ×3 (08:10→20:51)
[2019-02-20] MEDS ORDERED: Carvedilol 6.25 MG TAB PO SCH (08:30)
[2019-02-20] MEDS: Polyethylene Glycol 3350 17 GM Packet PO SCH (09:25)
[2019-02-20] MEDS: Insulin Glargine 15 UNITS in Pre-Filled Syringe 1 EACH SC SCH ×2 (09:26→21:37)
--- NOTE | 2019-02-20 12:53 | PRG ---
DATE OF SERVICE: 02/20/2019 SERVICE: Pulmonary Medicine. INTERVAL HISTORY: The patient indicates that his work of breathing is a little higher. Otherwise, he had an uneventful evening. There are no fevers or chills. He does have a cough. It hurts when he coughs. Otherwise, there has been no interval change to his condition. PHYSICAL EXAMINATION: VITAL SIGNS: Afebrile, pulse 87, blood pressure 149/81, respirations 30, saturation 99% on 2 L nasal cannula. GENERAL: The patient is awake and alert, in no apparent distress. LUNGS: Dependent crackles are present. There is decreased air entry in the bibasilar regions. HEART: Normal rate, regular. ABDOMEN: Soft, nontender, and nondistended. Bowel sounds are positive. MUSCULOSKELETAL: No cyanosis or clubbing. There is 2 to 3+ pitting in the bilateral lower extremities. The left lower extremity is surgically absent below the knee. LABORATORY DATA: WBC 7.9, hemoglobin 7.2, platelets 324,000. INR 1.2. Creatinine 1.98 and gently downtrending. We are close to baseline at this point. Urinalysis is unremarkable. Urine drug screen is unremarkable. Blood cultures x2 are unremarkable. ASSESSMENT: 1. Acute hypoxic respiratory failure, slowly improving. 2. Coronary artery disease, status post coronary artery bypass graft, postoperative day 5. 3. Type 2 diabetes mellitus. 4. Pleural effusions. DISCUSSION AND PLAN: The patient remains stable for transition out of the ICU to the floor. We will continue to diurese him down to euvolemia as tolerated. Pulmonary/Critical Care will follow, intermittently while the patient remains in-house. Dr. Salgado will assume care in the morning. Job ID: [id number]
[2019-02-20] MEDS ORDERED: Furosemide 100 MG/10 ML VIAL SLOW IVP SCH (15:00)
--- NOTE | 2019-02-20 15:07 | PRG ---
DATE OF SERVICE: 02/20/2019 SUBJECTIVE: A 33-year-old male, being seen for acute kidney injury. The patient denies any nausea, vomiting, or chest pain. OBJECTIVE: GENERAL: The patient is awake and alert. VITAL SIGNS: Afebrile, pulse 89, breathing 16, blood pressure was 170/85. GENERAL APPEARANCE AND MENTAL STATUS: Fair. HEAD/NECK: Normocephalic. Atraumatic. EYES: EOMI. No deformity. EARS: Clear. No ulcers. NOSE: Intact. No lesions. MOUTH: Clear. No discharge. THROAT: Clear. No exudate. LUNGS: Clear. No crackles. CARDIAC: S1, S2. No rub. ABDOMEN: Benign. Bowel sounds positive. GENITALIA/RECTUM: Conroy absent. BACK/EXTREMITIES: Edema 0+. NEUROLOGICAL: Alert and motor intact. SKIN: LYMPHATICS: LABORATORY DATA: Show hemoglobin 7.2. Creatinine 1.9. ASSESSMENT AND PLAN: 1. Acute kidney injury with chronic kidney disease, stage 3, stable. 2. Acute tubular necrosis, improved. 3. Hypertension, stable. 4. Anemia. We will recommend transfusion and starting the patient on Epogen once blood pressure is less than 160 systolic. I will sign off on this patient. Please re-consult as needed. Job ID: [id number]
--- NOTE | 2019-02-20 19:58 | PDOC.HOSPP ---
- Subjective Encounter Date: 02/19/19 Encounter Time: 11:45 Subjective: pt up in bed complains of pain around his incision. - Objective Vital Signs & Weight: Vital Signs (12 hours) Temp Pulse Pulse Pulse Resp BP BP 02/20/19 19:13 02/20/19 18:00 98.3 F 02/20/19 15:05 176/85 H 02/20/19 12:00 98.1 F 02/20/19 10:35 87 33 H 02/20/19 09:36 88 86 176/85 H 02/20/19 09:25 149/81 H 02/20/19 09:24 149/81 H 02/20/19 08:35 149/81 H 02/20/19 08:10 149/81 H 02/20/19 08:00 BP Pulse Ox Pulse Ox Pulse Ox 02/20/19 19:13 92 L 02/20/19 18:00 02/20/19 15:05 02/20/19 12:00 02/20/19 10:35 99 02/20/19 09:36 154/87 H 95 100 02/20/19 09:25 02/20/19 09:24 02/20/19 08:35 02/20/19 08:10 02/20/19 08:00 98 Weight Weight 171 lb 8.314 oz Most Recent Monitor Data Heart Rate from ECG 88 NIBP 163/82 NIBP BP-Mean 109 Respiration from ECG 22 SpO2 100 I&O: 02/19/19 02/20/19 02/21/19 06:59 06:59 06:59 Intake Total 1370 800 600 Output Total 2014 9332 [id number] [facility]075 -[id number] Result Diagrams: 02/20/19 05:00 02/20/19 05:00 Additional Labs: Accuchecks 02/20/19 02/20/19 02/20/19 17:38 11:25 07:38 POC Glucose 206 H 91 115 H 02/19/19 02/19/19 20:58 15:53 POC Glucose 194 H 83 Hospitalist ROS - Review of Systems Cardiovascular: reports: chest pain Gastrointestinal: denies: nausea, vomiting, abdominal pain, diarrhea, constipation, melena, hematochezia, other Genitourinary: denies: dysuria, frequency, incontinence, hematuria, retention, other - Medication Medications: Active Medications Generic Name Dose Route Start Last Admin Trade Name Freq PRN Reason Stop Dose Admin Acetaminophen 650 mg 02/15/19 12:02 02/18/19 05:52 Tylenol PO 650 mg Q6H PRN Administration Headache/Fever Or Mild Pain Hydrocodone Bitart/Acetaminophen 2 tab 02/15/19 12:02 02/20/19 15:04 [place] 5/325 PO 2 tab Q4H PRN Administration Severe Pain (7-10) Albuterol/Ipratropium 3 ml 02/15/19 13:00 02/20/19 19:13 Duoneb NEB 3 ml [id number] WALTER Administration Aspirin 325 mg 02/20/19 09:00 02/20/19 08:10 Ecotrin PO 325 mg DAILY WALTER Administration Atorvastatin Calcium 20 mg 02/15/19 21:00 02/19/19 20:51 Lipitor PO 20 mg HS WALTER Administration Benzonatate 100 mg 02/17/19 09:00 02/20/19 15:05 Tessalon PO 100 mg TID WALTER Administration Bisacodyl 10 mg 02/15/19 12:02 02/19/19 22:41 Dulcolax PO 10 mg Q12H PRN Administration Constipation Bisacodyl 10 mg 02/15/19 12:02 02/20/19 19:04 Dulcolax [place] 10 mg Q12H PRN Administration Constipation Carvedilol 12.5 mg 02/20/19 09:00 02/20/19 15:05 Coreg PO 12.5 mg TID WALTER Administration Famotidine 20 mg 02/17/19 09:00 02/20/19 08:10 Pepcid PO 20 mg DAILY WALTER Administration Insulin Glargine 15 units/ 0.15 mls @ 0 mls/hr 02/20/19 09:00 02/20/19 09:26 Miscellaneous Medication SC 0.15 mls QAM WALTER Administration Insulin Human Regular 0 units 02/19/19 12:07 02/20/19 17:38 Humulin R SC 6 unit Q4H PRN Administration POST CABG SLIDING SCALE Protocol Ondansetron HCl 4 mg 02/15/19 12:02 02/20/19 11:56 Zofran IVP 4 mg Q6H PRN Administration Nausea/Vomiting Polyethylene Glycol 17 gm 02/17/19 09:00 02/20/19 09:25 Miralax PO Not Given DAILY WALTER Zolpidem Tartrate 5 mg 02/19/19 12:00 02/19/19 22:41 Ambien PO 5 mg HSPRN PRN Administration Insomnia - Exam Heart: negative: RRR, no murmur, no gallops, no rubs, normal peripheral pulses, irregular, diminshed peripheral pulses, murmur present, II/IV, III/IV Respiratory: negative: CTAB, no wheezes, no rales, no ronchi, normal chest expansion, no tachypnea, normal percussion, rales, rhonchi, tachypneic, wheezes Gastrointestinal: negative: soft, non-tender, non-distended, normal bowel sounds , no palpable masses, no hepatomegaly, no splenomegaly, no bruit, no guarding, no rigidity, tender to palpation, distended, diminished bowl sounds, voluntary guarding Hosp A/P (1) NSTEMI (non-ST elevated myocardial infarction) Code(s): I21.4 - NON-ST ELEVATION (NSTEMI) MYOCARDIAL INFARCTION Status: Acute (2) CAD (coronary artery disease) Code(s): I25.10 - ATHSCL HEART DISEASE OF [place] CORONARY ARTERY W/O ANG PCTRS Status: Chronic (3) HTN (hypertension) Code(s): I10 - ESSENTIAL (PRIMARY) HYPERTENSION Status: Chronic Qualifiers: Hypertension type: essential hypertension Qualified Code(s): I10 - Essential (primary) hypertension (4) CKD (chronic kidney disease) stage 3, GFR 30-59 ml/min Code(s): N18.3 - CHRONIC KIDNEY DISEASE, STAGE 3 (MODERATE) Status: Chronic (5) DM type 1 (diabetes mellitus, type 1) Status: Chronic Qualifiers: Diabetes mellitus complication status: with kidney complications Diabetes mellitus complication detail: with chronic kidney disease Chronic kidney disease stage: stage 3 (moderate) Qualified Code(s): E10.22 - Type 1 diabetes mellitus with diabetic chronic kidney disease; N18.3 - Chronic kidney disease, stage 3 (moderate) - Plan s/p cabg, will continue current meds. His blood sugars are controlled. will up in chair.
--- NOTE | 2019-02-20 19:59 | PDOC.HOSPP ---
- Subjective Encounter Date: 02/20/19 Encounter Time: 15:00 Subjective: pt up in chair has not had a bm. - Objective Vital Signs & Weight: Vital Signs (12 hours) Temp Pulse Pulse Pulse Resp BP BP 02/20/19 19:13 02/20/19 18:00 98.3 F 02/20/19 15:05 176/85 H 02/20/19 12:00 98.1 F 02/20/19 10:35 87 33 H 02/20/19 09:36 88 86 176/85 H 02/20/19 09:25 149/81 H 02/20/19 09:24 149/81 H 02/20/19 08:35 149/81 H 02/20/19 08:10 149/81 H 02/20/19 08:00 BP Pulse Ox Pulse Ox Pulse Ox 02/20/19 19:13 92 L 02/20/19 18:00 02/20/19 15:05 02/20/19 12:00 02/20/19 10:35 99 02/20/19 09:36 154/87 H 95 100 02/20/19 09:25 02/20/19 09:24 02/20/19 08:35 02/20/19 08:10 02/20/19 08:00 98 Weight Weight 171 lb 8.314 oz Most Recent Monitor Data Heart Rate from ECG 88 NIBP 163/82 NIBP BP-Mean 109 Respiration from ECG 22 SpO2 100 I&O: 02/19/19 02/20/19 02/21/19 06:59 06:59 06:59 Intake Total 1370 800 600 Output Total 2014 8177 1053 [facility]198 -[phone] Result Diagrams: 02/20/19 05:00 02/20/19 05:00 Additional Labs: Accuchecks 02/20/19 02/20/19 02/20/19 17:38 11:25 07:38 POC Glucose 206 H 91 115 H 02/19/19 02/19/19 20:58 15:53 POC Glucose 194 H 83 Hospitalist ROS - Review of Systems Gastrointestinal: denies: nausea, vomiting, abdominal pain, diarrhea, constipation, melena, hematochezia, other Genitourinary: denies: dysuria, frequency, incontinence, hematuria, retention, other - Medication Medications: Active Medications Generic Name Dose Route Start Last Admin Trade Name Freq PRN Reason Stop Dose Admin Acetaminophen 650 mg 02/15/19 12:02 02/18/19 05:52 Tylenol PO 650 mg Q6H PRN Administration Headache/Fever Or Mild Pain Hydrocodone Bitart/Acetaminophen 2 tab 02/15/19 12:02 02/20/19 15:04 [place] 5/325 PO 2 tab Q4H PRN Administration Severe Pain (7-10) Albuterol/Ipratropium 3 ml 02/15/19 13:00 02/20/19 19:13 Duoneb NEB 3 ml [id number] WALTER Administration Aspirin 325 mg 02/20/19 09:00 02/20/19 08:10 Ecotrin PO 325 mg DAILY WALTER Administration Atorvastatin Calcium 20 mg 02/15/19 21:00 02/19/19 20:51 Lipitor PO 20 mg HS WALTER Administration Benzonatate 100 mg 02/17/19 09:00 02/20/19 15:05 Tessalon PO 100 mg TID WALTER Administration Bisacodyl 10 mg 02/15/19 12:02 02/19/19 22:41 Dulcolax PO 10 mg Q12H PRN Administration Constipation Bisacodyl 10 mg 02/15/19 12:02 02/20/19 19:04 Dulcolax [place] 10 mg Q12H PRN Administration Constipation Carvedilol 12.5 mg 02/20/19 09:00 02/20/19 15:05 Coreg PO 12.5 mg TID WALTER Administration Famotidine 20 mg 02/17/19 09:00 02/20/19 08:10 Pepcid PO 20 mg DAILY WALTER Administration Insulin Glargine 15 units/ 0.15 mls @ 0 mls/hr 02/20/19 09:00 02/20/19 09:26 Miscellaneous Medication SC 0.15 mls QAM WALTER Administration Insulin Human Regular 0 units 02/19/19 12:07 02/20/19 17:38 Humulin R SC 6 unit Q4H PRN Administration POST CABG SLIDING SCALE Protocol Ondansetron HCl 4 mg 02/15/19 12:02 02/20/19 11:56 Zofran IVP 4 mg Q6H PRN Administration Nausea/Vomiting Polyethylene Glycol 17 gm 02/17/19 09:00 02/20/19 09:25 Miralax PO Not Given DAILY WALTER Zolpidem Tartrate 5 mg 02/19/19 12:00 02/19/19 22:41 Ambien PO 5 mg HSPRN PRN Administration Insomnia - Exam Heart: negative: RRR, no murmur, no gallops, no rubs, normal peripheral pulses, irregular, diminshed peripheral pulses, murmur present, II/IV, III/IV Respiratory: negative: CTAB, no wheezes, no rales, no ronchi, normal chest expansion, no tachypnea, normal percussion, rales, rhonchi, tachypneic, wheezes Gastrointestinal: negative: soft, non-tender, non-distended, normal bowel sounds , no palpable masses, no hepatomegaly, no splenomegaly, no bruit, no guarding, no rigidity, tender to palpation, distended, diminished bowl sounds, voluntary guarding Hosp A/P (1) NSTEMI (non-ST elevated myocardial infarction) Code(s): I21.4 - NON-ST ELEVATION (NSTEMI) MYOCARDIAL INFARCTION Status: Acute (2) CAD (coronary artery disease) Code(s): I25.10 - ATHSCL HEART DISEASE OF [place] CORONARY ARTERY W/O ANG PCTRS Status: Chronic (3) HTN (hypertension) Code(s): I10 - ESSENTIAL (PRIMARY) HYPERTENSION Status: Chronic Qualifiers: Hypertension type: essential hypertension Qualified Code(s): I10 - Essential (primary) hypertension (4) CKD (chronic kidney disease) stage 3, GFR 30-59 ml/min Code(s): N18.3 - CHRONIC KIDNEY DISEASE, STAGE 3 (MODERATE) Status: Chronic (5) DM type 1 (diabetes mellitus, type 1) Status: Chronic Qualifiers: Diabetes mellitus complication status: with kidney complications Diabetes mellitus complication detail: with chronic kidney disease Chronic kidney disease stage: stage 3 (moderate) Qualified Code(s): E10.22 - Type 1 diabetes mellitus with diabetic chronic kidney disease; N18.3 - Chronic kidney disease, stage 3 (moderate) - Plan s/p cabg, will continue current meds. His blood sugars are controlled. will encourage up in chair. 02/20 will add lactulose since he has not had a bm. pt received lasix x1 today. Encourage up in chair.
[2019-02-20] MEDS: Atorvastatin Calcium 20 MG TAB PO SCH (20:51)
[2019-02-20] MEDS ORDERED: Morphine 4 MG/ML VIAL SLOW IVP PRN (22:33)
[2019-02-20] MEDS ORDERED: Ketorolac Tromethamine 30 MG/ML VIAL IVP SCH (22:45)
[2019-02-20] MEDS ORDERED: Sodium Chloride 0.9% 100 ML IV SCH (22:45)
[2019-02-20] MEDS: Sodium Chloride 0.9% 1,000 ML IV SCH (22:54)
[2019-02-21] MEDS ORDERED: Morphine 4 MG/ML VIAL SLOW IVP SCH (02:45)
[2019-02-21 04:48] LABS: #Basophils 0.1 thou/uL (0.0-0.2); #Eosinphils 0.5 thou/uL (0.0-0.7); #Lymphocytes 1.9 thou/uL (1.20-3.40); #Monocytes 0.9 thou/uL (0.11-0.59); %Basophils 0.9 % (0.0-1.0); %Eosinophils 5.8 % (0.0-10.0); %Lymphocytes 22.3 % (21.0-51.0); %Neutrophils 60.1 % (42.0-75.0); Mean Corpuscular HGB CONC 32.6 g/dL (32.0-36.0); Mean Corpuscular Hemoglobin 28.5 pg (27.0-31.0); Mean Corpuscular Volume 87.6 fL (78.0-98.0); Mean Platelet Volume 7.9 fL (7.4-10.4); Platelet Count 365 thou/uL (130-400); RBC Distribution Width 13.1 % (11.5-14.5); Red Blood Cell (RBC) Count 2.44 mill/uL (4.70-6.10); White Blood Cell (WBC) Count 8.4 thou/uL (4.8-10.8)
[2019-02-21 05:16] LABS: Anion Gap 13 mmol/L (10-20); BUN (Urea Nitrogen) 53 mg/dL (8.9-20.6); Calc. Creatinine Clearance 54 mL/min (70-130); Calcium 8.3 mg/dL (7.8-10.44); Carbon Dioxide 27 mmol/L (22-29); Chloride 103 mmol/L (98-107); Estimated GFR-MDRD 36; Glucose 110 mg/dL (70-105); Magnesium 2.3 mg/dL (1.6-2.6); Potassium 4.1 mmol/L (3.5-5.1); Sodium 139 mmol/L (136-145)
[2019-02-21] MEDS: Carvedilol 6.25 MG TAB PO SCH ×3 (08:22→20:50)
[2019-02-21] MEDS: Aspirin 325 mg Enteric Coated Tablet PO SCH (08:22)
[2019-02-21] MEDS: Benzonatate 100 MG CAP PO SCH ×3 (08:23→20:50)
[2019-02-21] MEDS: Furosemide 40 MG/4 ML VIAL SLOW IVP SCH (08:23)
[2019-02-21] MEDS: Polyethylene Glycol 3350 17 GM Packet PO SCH (08:23)
[2019-02-21] MEDS: Famotidine 20 MG TAB PO SCH (08:23)
[2019-02-21] MEDS: Ondansetron PF 4 MG/2 ML Vial IVP PRN ×2 (08:23→17:11)
--- NOTE | 2019-02-21 09:36 | PRG ---
DATE OF SERVICE: 02/21/2019 SUBJECTIVE: This morning, he is doing better, less chest pain, less shortness of breath. OBJECTIVE: VITAL SIGNS: Saturations 90% on 2 L, blood pressure 120/70, pulse 88, respirations 18. CHEST: No wheezing or crackles. CARDIAC: Normal S1 and S2. No gallops. ABDOMEN: No mass. Soft. EXTREMITIES: Right leg, no edema. Left BK amputation. LABORATORY DATA: Creatinine is 2.13. White count 8000, H and H of 7 and 21. IMPRESSION: 1. Uncontrolled diabetes. 2. Coronary artery disease. 3. Coronary artery bypass graft. 4. Severe deconditioning. 5. Renal failure. PLAN: Pulmonary cedillo, he is going to go to swing bed today. Continue PT, supportive care. We will follow. Job ID: [id number]
[2019-02-21] MEDS: Insulin Regular 300 UNITS/3 ML VIAL SC PRN ×2 (09:53→12:16)
[2019-02-21] MEDS: Insulin Glargine 15 UNITS in Pre-Filled Syringe 1 EACH SC SCH ×2 (09:54→20:49)
[2019-02-21] MEDS: HYDROcodone/Acetaminophen 5/325 mg Tablet PO PRN ×2 (10:43→21:27)
--- NOTE | 2019-02-21 11:48 | RAD ---
XR Chest 1 View Portable History: Decreased oxygen saturation Comparison: Radiograph February 18, 2019 Findings: Enlarging left layering pleural effusion. Parenchymal opacity within the lingula. Mild pulm onary venous congestion and edema. Central venous catheter is similar. Cardiac silhouette and mediastinal contours are similar as well as the midline sternotomy wires. The mediastinal drains have been removed. Impression: Interval removal of mediastinal drains with enlarging left layering pleural effusion.
[2019-02-21] MEDS: Sodium Chloride 0.9% 1,000 ML IV SCH (13:25)
--- NOTE | 2019-02-21 19:19 | PDOC.HOSPP ---
- Subjective Encounter Date: 02/21/19 Encounter Time: 12:30 Subjective: pt up in bed no complains - Objective Vital Signs & Weight: Vital Signs (12 hours) Temp Pulse Resp BP Pulse Ox 02/21/19 18:31 81 16 100 02/21/19 18:00 98.1 F 02/21/19 15:20 165/88 H 02/21/19 13:26 79 16 97 02/21/19 12:00 98.0 F 02/21/19 08:22 125/71 02/21/19 08:00 98 02/21/19 07:18 96 Weight Admit Weight 173 lb Weight 173 lb 4.533 oz Most Recent Monitor Data Heart Rate from ECG 73 NIBP 165/88 NIBP BP-Mean 113 Respiration from ECG 17 SpO2 98 I&O: 02/20/19 02/21/19 02/22/19 06:59 06:59 06:59 Intake Total 800 1249 246 Output Total 3410 6669 1483 [facility]4010 -[id number] -2398 Result Diagrams: 02/21/19 04:10 02/21/19 04:10 Additional Labs: Accuchecks 02/21/19 02/21/19 02/21/19 17:14 12:19 09:54 POC Glucose 115 H 210 H 245 H 02/18/19 12:21 POC Glucose 48 L* Hospitalist ROS - Review of Systems Respiratory: denies: cough, dry, shortness of breath, hemoptysis, SOB with excertion, pleuritic pain, sputum, wheezing, other Cardiovascular: denies: chest pain, palpitations, orthopnea, paroxysmal noc. dyspnea, edema, light headedness, other Gastrointestinal: denies: nausea, vomiting, abdominal pain, diarrhea, constipation, melena, hematochezia, other - Medication Medications: Active Medications Generic Name Dose Route Start Last Admin Trade Name Freq PRN Reason Stop Dose Admin Acetaminophen 650 mg 02/15/19 12:02 02/18/19 05:52 Tylenol PO 650 mg Q6H PRN Administration Headache/Fever Or Mild Pain Hydrocodone Bitart/Acetaminophen 2 tab 02/15/19 12:02 02/21/19 10:43 [place] 5/325 PO 2 tab Q4H PRN Administration Severe Pain (7-10) Albuterol/Ipratropium 3 ml 02/15/19 13:00 02/21/19 18:31 Duoneb NEB 3 ml [id number] WALTER Administration Aspirin 325 mg 02/20/19 09:00 02/21/19 08:22 Ecotrin PO 325 mg DAILY WALTER Administration Atorvastatin Calcium 20 mg 02/15/19 21:00 02/20/19 20:51 Lipitor PO 20 mg HS WALTER Administration Benzonatate 100 mg 02/17/19 09:00 02/21/19 15:20 Tessalon PO 100 mg TID WALTER Administration Bisacodyl 10 mg 02/15/19 12:02 02/19/19 22:41 Dulcolax PO 10 mg Q12H PRN Administration Constipation Bisacodyl 10 mg 02/15/19 12:02 02/20/19 19:04 Dulcolax [place] 10 mg Q12H PRN Administration Constipation Carvedilol 12.5 mg 02/20/19 09:00 02/21/19 15:20 Coreg PO 12.5 mg TID WALTER Administration Famotidine 20 mg 02/17/19 09:00 02/21/19 08:23 Pepcid PO 20 mg DAILY WALTER Administration Furosemide 40 mg 02/21/19 09:00 02/21/19 08:23 Lasix SLOW IVP 40 mg DAILY WALTER Administration Insulin Glargine 15 units/ 0.15 mls @ 0 mls/hr 02/20/19 21:00 02/20/19 21:37 Miscellaneous Medication SC 0.15 mls HS WALTER Administration Insulin Glargine 15 units/ 0.15 mls @ 0 mls/hr 02/20/19 09:00 02/21/19 09:54 Miscellaneous Medication SC 0.15 mls QAM WALTER Administration Insulin Human Regular 0 units 02/19/19 12:07 02/21/19 12:16 Humulin R SC 6 unit Q4H PRN Administration POST CABG SLIDING SCALE Protocol Nitroglycerin 0.4 mg 02/19/19 12:00 02/20/19 21:35 Nitrostat SL 0.4 mg Q5MIN PRN Administration Chest Pain Ondansetron HCl 4 mg 02/15/19 12:02 02/21/19 17:11 Zofran IVP 4 mg Q6H PRN Administration Nausea/Vomiting Polyethylene Glycol 17 gm 02/17/19 09:00 02/21/19 08:23 Miralax PO Not Given DAILY WALTER Zolpidem Tartrate 5 mg 02/19/19 12:00 02/19/19 22:41 Ambien PO 5 mg HSPRN PRN Administration Insomnia - Exam Heart: negative: RRR, no murmur, no gallops, no rubs, normal peripheral pulses, irregular, diminshed peripheral pulses, murmur present, II/IV, III/IV Respiratory: negative: CTAB, no wheezes, no rales, no ronchi, normal chest expansion, no tachypnea, normal percussion, rales, rhonchi, tachypneic, wheezes Gastrointestinal: negative: soft, non-tender, non-distended, normal bowel sounds , no palpable masses, no hepatomegaly, no splenomegaly, no bruit, no guarding, no rigidity, tender to palpation, distended, diminished bowl sounds, voluntary guarding Hosp A/P (1) NSTEMI (non-ST elevated myocardial infarction) Code(s): I21.4 - NON-ST ELEVATION (NSTEMI) MYOCARDIAL INFARCTION Status: Acute (2) CAD (coronary artery disease) Code(s): I25.10 - ATHSCL HEART DISEASE OF [place] CORONARY ARTERY W/O ANG PCTRS Status: Chronic (3) HTN (hypertension) Code(s): I10 - ESSENTIAL (PRIMARY) HYPERTENSION Status: Chronic Qualifiers: Hypertension type: essential hypertension Qualified Code(s): I10 - Essential (primary) hypertension (4) CKD (chronic kidney disease) stage 3, GFR 30-59 ml/min Code(s): N18.3 - CHRONIC KIDNEY DISEASE, STAGE 3 (MODERATE) Status: Chronic (5) DM type 1 (diabetes mellitus, type 1) Status: Chronic Qualifiers: Diabetes mellitus complication status: with kidney complications Diabetes mellitus complication detail: with chronic kidney disease Chronic kidney disease stage: stage 3 (moderate) Qualified Code(s): E10.22 - Type 1 diabetes mellitus with diabetic chronic kidney disease; N18.3 - Chronic kidney disease, stage 3 (moderate) - Plan s/p cabg, will continue current meds. His blood sugars are controlled. will up in chair. 02/21 pt up in bed had some chest pain last night. He has no chest pain. pt had a bm. HH is low, will defer to cardio and renal for transfusion. will increase his am lantus. elevated phos most likely due to his CKD.
[2019-02-21] MEDS: hydrALAZINE 25 MG TAB PO SCH (20:50)
[2019-02-21] MEDS: Atorvastatin Calcium 20 MG TAB PO SCH (20:50)
[2019-02-22 04:28] LABS: #Basophils 0.1 thou/uL (0.0-0.2); #Eosinphils 0.6 thou/uL (0.0-0.7); #Lymphocytes 1.9 thou/uL (1.20-3.40); #Monocytes 0.8 thou/uL (0.11-0.59); #Neutrophils 4.7 thou/uL (1.40-6.50); %Basophils 1.1 % (0.0-1.0); %Eosinophils 7.2 % (0.0-10.0); %Lymphocytes 23.7 % (21.0-51.0); %Monocytes 9.6 % (0.0-10.0); %Neutrophils 58.3 % (42.0-75.0); Hemoglobin 6.8 g/dL (14.0-18.0); Mean Corpuscular HGB CONC 32.6 g/dL (32.0-36.0); Mean Corpuscular Hemoglobin 28.7 pg (27.0-31.0); Mean Platelet Volume 7.8 fL (7.4-10.4); Platelet Count 355 thou/uL (130-400); RBC Distribution Width 13.2 % (11.5-14.5); Red Blood Cell (RBC) Count 2.37 mill/uL (4.70-6.10); White Blood Cell (WBC) Count 8.1 thou/uL (4.8-10.8)
[2019-02-22 04:36] LABS: Anion Gap 13 mmol/L (10-20); BUN (Urea Nitrogen) 49 mg/dL (8.9-20.6); Calc. Creatinine Clearance 61 mL/min (70-130); Calcium 8.2 mg/dL (7.8-10.44); Carbon Dioxide 27 mmol/L (22-29); Chloride 106 mmol/L (98-107); Estimated GFR-MDRD 41; Glucose 155 mg/dL (70-105); Potassium 4.6 mmol/L (3.5-5.1); Sodium 141 mmol/L (136-145)
[2019-02-22] MEDS: HYDROcodone/Acetaminophen 5/325 mg Tablet PO PRN ×3 (05:22→21:26)
[2019-02-22] MEDS: Ondansetron PF 4 MG/2 ML Vial IVP PRN ×3 (05:24→21:18)
[2019-02-22] MEDS: Famotidine 20 MG TAB PO SCH (07:59)
[2019-02-22] MEDS: Aspirin 325 mg Enteric Coated Tablet PO SCH (07:59)
[2019-02-22] MEDS: hydrALAZINE 25 MG TAB PO SCH ×2 (07:59→21:26)
[2019-02-22] MEDS: Benzonatate 100 MG CAP PO SCH ×3 (07:59→21:26)
[2019-02-22] MEDS: Carvedilol 6.25 MG TAB PO SCH ×3 (07:59→21:26)
[2019-02-22] MEDS: Polyethylene Glycol 3350 17 GM Packet PO SCH (08:00)
[2019-02-22] MEDS: Furosemide 40 MG/4 ML VIAL SLOW IVP SCH (08:00)
[2019-02-22] MEDS: Insulin Glargine 18 UNITS in Pre-Filled Syringe 1 EACH SC SCH (08:31)
--- NOTE | 2019-02-22 08:43 | PRG ---
DATE OF SERVICE: 02/22/2019 SUBJECTIVE: This morning, he said he has less pain, less shortness of breath. X-ray from yesterday shows small left pleural effusion, not enough to do a thoracentesis at this stage. OBJECTIVE: VITAL SIGNS: His sats are 98% on room air, temperature 98, pulse 72, blood pressure 140/74. Decreased breath sounds bilaterally. CARDIAC: Normal S1 and S2. No gallops. ABDOMEN: Soft. LABORATORY DATA: White count 8000, hemoglobin and hematocrit 6 and 20, platelet count 255. IMPRESSION: 1. Renal failure. 2. Left pleural effusion. 3. Possible pericarditis. 4. Coronary artery bypass graft. 5. Diabetes. PLAN: Continue supportive care, PT. Disposition as per Cardiology. Job ID: [id number]
[2019-02-22] MEDS: Bisacodyl 5 MG TAB PO PRN (13:51)
[2019-02-22] MEDS: Insulin Regular 300 UNITS/3 ML VIAL SC PRN (15:37)
[2019-02-22] MEDS: Insulin Glargine 15 UNITS in Pre-Filled Syringe 1 EACH SC SCH (21:23)
[2019-02-22] MEDS: Atorvastatin Calcium 20 MG TAB PO SCH (21:26)
[2019-02-23] MEDS: HYDROcodone/Acetaminophen 5/325 mg Tablet PO PRN ×4 (01:22→21:43)
[2019-02-23 04:59] LABS: #Basophils 0.1 thou/uL (0.0-0.2); #Eosinphils 0.7 thou/uL (0.0-0.7); #Neutrophils 6.4 thou/uL (1.40-6.50); %Basophils 0.8 % (0.0-1.0); %Lymphocytes 19.4 % (21.0-51.0); %Monocytes 9.7 % (0.0-10.0); %Neutrophils 63.1 % (42.0-75.0); Hemoglobin 7.8 g/dL (14.0-18.0); Mean Corpuscular HGB CONC 32.4 g/dL (32.0-36.0); Mean Corpuscular Hemoglobin 28.9 pg (27.0-31.0); Mean Corpuscular Volume 89.2 fL (78.0-98.0); Mean Platelet Volume 7.6 fL (7.4-10.4); Platelet Count 426 thou/uL (130-400); White Blood Cell (WBC) Count 10.1 thou/uL (4.8-10.8)
[2019-02-23 05:18] LABS: Anion Gap 9 mmol/L (10-20); BUN (Urea Nitrogen) 43 mg/dL (8.9-20.6); Calc. Creatinine Clearance 61 mL/min (70-130); Calcium 8.3 mg/dL (7.8-10.44); Carbon Dioxide 29 mmol/L (22-29); Chloride 106 mmol/L (98-107); Estimated GFR-MDRD 41; Glucose 157 mg/dL (70-105); Potassium 4.8 mmol/L (3.5-5.1); Sodium 139 mmol/L (136-145)
--- NOTE | 2019-02-23 06:54 | PDOC.HOSPP ---
- Subjective Encounter Date: 02/22/19 Encounter Time: 13:30 Subjective: pt up with physical therapy - Objective Vital Signs & Weight: Vital Signs (12 hours) Temp Pulse Resp BP BP Pulse Ox 02/23/19 06:00 98.2 F 02/23/19 00:00 98.1 F 02/22/19 23:42 76 16 02/22/19 21:26 84 152/83 H 02/22/19 20:00 98.0 F 77 18 152/83 H 99 Weight Admit Weight 173 lb Weight 170 lb 11.2 oz Most Recent Monitor Data Heart Rate from ECG 81 NIBP 162/83 NIBP BP-Mean 109 Respiration from ECG 18 SpO2 93 I&O: 02/21/19 02/22/19 02/23/19 06:59 06:59 06:59 Intake Total 2967 366 6750 Output Total 3126 8058 3340 [facility]1876 -1898 -70 Result Diagrams: 02/23/19 04:30 02/23/19 04:30 Additional Labs: Accuchecks 02/22/19 02/22/19 02/22/19 21:25 15:38 10:32 POC Glucose 172 H 319 H 143 H Hospitalist ROS - Review of Systems Cardiovascular: denies: chest pain, palpitations, orthopnea, paroxysmal noc. dyspnea, edema, light headedness, other Gastrointestinal: denies: nausea, vomiting, abdominal pain, diarrhea, constipation, melena, hematochezia, other Genitourinary: denies: dysuria, frequency, incontinence, hematuria, retention, other - Medication Medications: Active Medications Generic Name Dose Route Start Last Admin Trade Name Freq PRN Reason Stop Dose Admin Acetaminophen 650 mg 02/15/19 12:02 02/18/19 05:52 Tylenol PO 650 mg Q6H PRN Administration Headache/Fever Or Mild Pain Hydrocodone Bitart/Acetaminophen 1 tab 02/15/19 12:02 02/22/19 21:26 [place] 5/325 PO 1 tab Q4H PRN Administration Moderate Pain (4-6) Hydrocodone Bitart/Acetaminophen 2 tab 02/15/19 12:02 02/23/19 01:22 [place] 5/325 PO 2 tab Q4H PRN Administration Severe Pain (7-10) Albuterol/Ipratropium 3 ml 02/15/19 13:00 02/22/19 23:42 Duoneb NEB 3 ml [id number] WALTER Administration Aspirin 325 mg 02/20/19 09:00 02/22/19 07:59 Ecotrin PO 325 mg DAILY WALTER Administration Atorvastatin Calcium 20 mg 02/15/19 21:00 02/22/19 21:26 Lipitor PO 20 mg HS WALTER Administration Benzonatate 100 mg 02/17/19 09:00 02/22/19 21:26 Tessalon PO 100 mg TID WALTER Administration Bisacodyl 10 mg 02/15/19 12:02 02/22/19 13:51 Dulcolax PO 10 mg Q12H PRN Administration Constipation Bisacodyl 10 mg 02/15/19 12:02 02/20/19 19:04 Dulcolax DE 10 mg Q12H PRN Administration Constipation Carvedilol 12.5 mg 02/20/19 09:00 02/22/19 21:26 Coreg PO 12.5 mg TID WALTER Administration Famotidine 20 mg 02/17/19 09:00 02/22/19 07:59 Pepcid PO 20 mg DAILY WALTER Administration Furosemide 40 mg 02/21/19 09:00 02/22/19 08:00 Lasix SLOW IVP 40 mg DAILY WALTER Administration Hydralazine HCl 25 mg 02/21/19 21:00 02/22/19 21:26 Apresoline PO 25 mg BID WALTER Administration Insulin Glargine 15 units/ 0.15 mls @ 0 mls/hr 02/20/19 21:00 02/22/19 21:23 Miscellaneous Medication SC 0.15 mls HS WALTER Administration Insulin Glargine 18 units/ 0.18 mls @ 0 mls/hr 02/22/19 09:00 02/22/19 08:31 Miscellaneous Medication SC 0.18 mls QAM WALTER Administration Insulin Human Regular 0 units 02/19/19 12:07 02/22/19 15:37 Humulin R SC 10 unit Q4H PRN Administration POST CABG SLIDING SCALE Protocol Nitroglycerin 0.4 mg 02/19/19 12:00 02/20/19 21:35 Nitrostat SL 0.4 mg Q5MIN PRN Administration Chest Pain Ondansetron HCl 4 mg 02/15/19 12:02 02/22/19 21:18 Zofran IVP 4 mg Q6H PRN Administration Nausea/Vomiting Polyethylene Glycol 17 gm 02/17/19 09:00 02/22/19 08:00 Miralax PO 17 gm DAILY WALTER Administration Zolpidem Tartrate 5 mg 02/19/19 12:00 02/19/19 22:41 Ambien PO 5 mg HSPRN PRN Administration Insomnia - Exam Neck: negative: supple, symmetric, no JVD, no thyromegaly, no lymphadenopathy, no carotid bruit, JVD Heart: negative: RRR, no murmur, no gallops, no rubs, normal peripheral pulses, irregular, diminshed peripheral pulses, murmur present, II/IV, III/IV Respiratory: negative: CTAB, no wheezes, no rales, no ronchi, normal chest expansion, no tachypnea, normal percussion, rales, rhonchi, tachypneic, wheezes Hosp A/P (1) NSTEMI (non-ST elevated myocardial infarction) Code(s): I21.4 - NON-ST ELEVATION (NSTEMI) MYOCARDIAL INFARCTION Status: Acute (2) CAD (coronary artery disease) Code(s): I25.10 - ATHSCL HEART DISEASE OF [place] CORONARY ARTERY W/O ANG PCTRS Status: Chronic (3) HTN (hypertension) Code(s): I10 - ESSENTIAL (PRIMARY) HYPERTENSION Status: Chronic Qualifiers: Hypertension type: essential hypertension Qualified Code(s): I10 - Essential (primary) hypertension (4) CKD (chronic kidney disease) stage 3, GFR 30-59 ml/min Code(s): N18.3 - CHRONIC KIDNEY DISEASE, STAGE 3 (MODERATE) Status: Chronic (5) DM type 1 (diabetes mellitus, type 1) Status: Chronic Qualifiers: Diabetes mellitus complication status: with kidney complications Diabetes mellitus complication detail: with chronic kidney disease Chronic kidney disease stage: stage 3 (moderate) Qualified Code(s): E10.22 - Type 1 diabetes mellitus with diabetic chronic kidney disease; N18.3 - Chronic kidney disease, stage 3 (moderate) (6) Anemia Code(s): D64.9 - ANEMIA, UNSPECIFIED Status: Acute - Plan s/p cabg, will continue current meds. His blood sugars are controlled. will up in chair. 12/9 pt up in bed had some chest pain last night. He has no chest pain. pt had a bm. HH is low, will defer to cardio and renal for transfusion. will increase his am lantus. elevated phos most likely due to his CKD. 02/22 will transfuse pt one unit of blood. He is getting up with PT. will defer epogen to nephro. possible discharge nicola. will add some more lactulose since pt felt better after his bm. his sugars are stable so far after adjusting his insulin dose yestarday. will monitor.
[2019-02-23] MEDS: Aspirin 325 mg Enteric Coated Tablet PO SCH (08:14)
[2019-02-23] MEDS: Ondansetron PF 4 MG/2 ML Vial IVP PRN ×2 (08:14→21:47)
[2019-02-23] MEDS: Furosemide 40 MG/4 ML VIAL SLOW IVP SCH (08:14)
[2019-02-23] MEDS: Famotidine 20 MG TAB PO SCH (08:15)
[2019-02-23] MEDS: Carvedilol 6.25 MG TAB PO SCH ×2 (08:15→15:33)
[2019-02-23] MEDS: Benzonatate 100 MG CAP PO SCH ×3 (08:23→21:44)
[2019-02-23] MEDS: Polyethylene Glycol 3350 17 GM Packet PO SCH (08:24)
[2019-02-23] MEDS: hydrALAZINE 25 MG TAB PO SCH ×2 (08:25→21:44)
[2019-02-23] MEDS: Insulin Glargine 18 UNITS in Pre-Filled Syringe 1 EACH SC SCH (09:11)
--- NOTE | 2019-02-23 09:12 | PRG ---
DATE OF SERVICE: 02/23/2019 SUBJECTIVE: This morning, he is nauseated, but is apparently less short of breath. OBJECTIVE: VITAL SIGNS: His temperature is 98, pulse 75, respirations 20, and blood pressure 150/83. CHEST: Decreased breath sounds, right lung. Left, unremarkable. CARDIAC: Normal S1 and S2. No gallops. ABDOMEN: Soft without any masses. LABORATORY DATA: Creatinine 1.8. Lytes are normal. ASSESSMENT: 1. Coronary artery bypass grafting. 2. Right pleural effusion. 3. Azotemia. 4. Diabetes. 5. Deconditioning. PLAN: Disposition as per Cardiology. Supportive Care. We will follow while in the ICU. Job ID: [id number]
[2019-02-23] MEDS ORDERED: EPOETIN ALFA-EPBX (ESRD) 10,000 UNIT/ML VIAL SC SCH (15:00)
[2019-02-23] MEDS: Insulin Regular 300 UNITS/3 ML VIAL SC PRN (15:59)
[2019-02-23] MEDS: Atorvastatin Calcium 20 MG TAB PO SCH (21:44)
[2019-02-23] MEDS: Insulin Glargine 15 UNITS in Pre-Filled Syringe 1 EACH SC SCH (21:51)
[2019-02-24] MEDS: HYDROcodone/Acetaminophen 5/325 mg Tablet PO PRN ×2 (04:02→10:25)
[2019-02-24 04:31] LABS: #Basophils 0.1 thou/uL (0.0-0.2); #Eosinphils 0.6 thou/uL (0.0-0.7); %Basophils 0.8 % (0.0-1.0); %Eosinophils 5.8 % (0.0-10.0); %Lymphocytes 18.8 % (21.0-51.0); %Neutrophils 65.6 % (42.0-75.0); Hemoglobin 9.1 g/dL (14.0-18.0); Mean Corpuscular HGB CONC 33.1 g/dL (32.0-36.0); Mean Corpuscular Hemoglobin 29.4 pg (27.0-31.0); Mean Corpuscular Volume 88.9 fL (78.0-98.0); Mean Platelet Volume 7.7 fL (7.4-10.4); Platelet Count 456 thou/uL (130-400); Red Blood Cell (RBC) Count 3.09 mill/uL (4.70-6.10); White Blood Cell (WBC) Count 10.6 thou/uL (4.8-10.8)
[2019-02-24 04:46] LABS: Anion Gap 11 mmol/L (10-20); BUN (Urea Nitrogen) 41 mg/dL (8.9-20.6); Calc. Creatinine Clearance 62 mL/min (70-130); Calcium 8.7 mg/dL (7.8-10.44); Carbon Dioxide 29 mmol/L (22-29); Chloride 105 mmol/L (98-107); Estimated GFR-MDRD 43; Glucose 149 mg/dL (70-105); Potassium 4.8 mmol/L (3.5-5.1); Sodium 140 mmol/L (136-145)
[2019-02-24 06:22] VITALS: BMI 30.1
[2019-02-24] MEDS ORDERED: Furosemide 40 MG TAB PO SCH (07:30)
[2019-02-24] MEDS ORDERED: Carvedilol 25 MG TAB PO SCH (08:00)
--- NOTE | 2019-02-24 08:55 | PRG ---
DATE OF SERVICE: 02/24/2019 SUBJECTIVE: This morning, he is awake, alert, responsive. He is eager to go home. OBJECTIVE: VITAL SIGNS: His sats are 95% on room air. His temperature 98, blood pressure 166/90, respiratory rate 18, pulse 19. CHEST: Decreased breath sounds, left lung. CARDIAC: Normal S1 and S2. No gallops. ABDOMEN: No masses. LABORATORY DATA: Creatinine is 1.83, stable. Status post CABG, diabetes, azotemia, left pleural effusion, and possible pericarditis. PLAN: Disposition as per Surgery. Continue supportive care, PT, neb treatments as tolerated. Job ID: [id number]
[2019-02-24] MEDS: Aspirin 325 mg Enteric Coated Tablet PO SCH (09:42)
[2019-02-24] MEDS: hydrALAZINE 25 MG TAB PO SCH (09:43)
[2019-02-24] MEDS: Famotidine 20 MG TAB PO SCH (09:43)
[2019-02-24] MEDS: Benzonatate 100 MG CAP PO SCH ×2 (09:43→15:58)
[2019-02-24] MEDS: Polyethylene Glycol 3350 17 GM Packet PO SCH (09:46)
[2019-02-24 10:20] VITALS: BP 201/100
[2019-02-24] MEDS: Insulin Glargine 18 UNITS in Pre-Filled Syringe 1 EACH SC SCH (10:27)
[2019-02-24] MEDS: Ondansetron PF 4 MG/2 ML Vial IVP PRN (15:27)
[2019-02-24 16:17] VITALS: TEMP 99.2
--- NOTE | 2019-02-25 19:19 | PQF ---
[employer] Crystal Reports Winform Viewer AUGUSTIN VALLE MICHELLEMICHAELJYOTINANCY [id number] [id number] CLINICAL DOCUMENTATION CLARIFICATION FORM: POST DISCHARGE Addendum to original discharge summary date: ____ Late entry note date: __ DATE: 02/25/19 ATTN:Sheryl Barber Please exercise your independent, professional judgment in responding to the clarification form. Clinical indicators are provided on the bottom of this form for your review Can you please further clarify the specificity of CT? Please check appropriate box(s): [ ] NSTEMI (CT type I) [ ] NSTEMI due to Demand Ischemia (AMI Type II) [ ] Other diagnosis please specify [ ] Unable to determine In addition, please specify: Present on Admission (POA): [ ] Yes [ ] No [ ] Unable to determine CLINICAL INDICATORS - SIGNS / SYMPTOMS / LABS H and P pg.1- he reports that he has some chest pressure H and p pg.1- Troponin, first troponin was 0.922. H and P pg.1- EKG in the ER shows sinus tach, beats per minute 109, ST wave abnormality nonspecific H and P pg.2- Non ST elevation myocardial infarction, most likely due to the pneumonia demand Consult Dr. Altman- Certainly this could be a type 2 [address] ST- elevation myocardial infraction Cardiology Consult Dr. Goodwin pg.4- NSTEMI, demand ischemia? Hospitalist PN 02/23 pg.1- non ST elevation myocardial infraction RISKS: He still smoke- H and P pg.1 Type 1 DM- H and P pg.1 Pneumonia- H and P pg.2 Hypertension- H and P pg.2 Non compliance on medication- Consult Dr. Altman CAD- OP report 02/15 TREATMENTS: Cardiology consult 02/11 Dr. Altman Chest X ray 02/07 Chest/Thorax CTA 02/10 Echocardiogram 02/10 [facility]- key maker Procedure 02/10 Coronary bypass graftx5- OP report 02/15 (This form is maintained as a part of the permanent medical record) 2014 [email or web address]. All Rights Reserved [email or web address] [not provided] [email or web address]
== END 2019-02-24 15:55 | disposition swing bed (61) | DRG 233 ==
LOC: ERS 09:20 → 2NO 15:24 → CCU 02-14 11:03
PROVIDERS: ADMIT Internal Medicine; ATTEND Internal Medicine
PROC: 4A023N7 Measurement of Cardiac Sampling and Pressure, Left Heart, Percutaneous Approach (ICD-10-PCS; 2019-02-14)
PROC: B2151ZZ Fluoroscopy of Left Heart using Low Osmolar Contrast (ICD-10-PCS; 2019-02-14)
PROC: B2111ZZ Fluoroscopy of Multiple Coronary Arteries using Low Osmolar Contrast (ICD-10-PCS; 2019-02-14)
PROC: B2181ZZ Fluoroscopy of Left Internal Mammary Bypass Graft using Low Osmolar Contrast (ICD-10-PCS; 2019-02-14)
PROC: 30233N1 Transfusion of Nonautologous Red Blood Cells into Peripheral Vein, Percutaneous Approach (ICD-10-PCS; 2019-02-14)
PROC: 0211093 Bypass Coronary Artery, Two Arteries from Coronary Artery with Autologous Venous Tissue, Open Approach (ICD-10-PCS; principal; 2019-02-15)
PROC: 021109W Bypass Coronary Artery, Two Arteries from Aorta with Autologous Venous Tissue, Open Approach (ICD-10-PCS; 2019-02-15)
PROC: 06BQ3ZZ Excision of Left Saphenous Vein, Percutaneous Approach (ICD-10-PCS; 2019-02-15)
PROC: 5A1221Z Performance of Cardiac Output, Continuous (ICD-10-PCS; 2019-02-15)
PROC: 02100Z9 Bypass Coronary Artery, One Artery from Left Internal Mammary, Open Approach (ICD-10-PCS; 2019-02-15)
DX: I21.4 Non-ST elevation (NSTEMI) myocardial infarction (principal); J18.9 Pneumonia, unspecified organism; J96.01 Acute respiratory failure with hypoxia; N17.0 Acute kidney failure with tubular necrosis; J90 Pleural effusion, not elsewhere classified; E87.2 Acidosis; I25.10 Atherosclerotic heart disease of native coronary artery without angina pectoris; N18.3 Chronic kidney disease, stage 3 (moderate); E10.22 Type 1 diabetes mellitus with diabetic chronic kidney disease; F17.210 Nicotine dependence, cigarettes, uncomplicated; E78.00 Pure hypercholesterolemia, unspecified; I11.0 Hypertensive heart disease with heart failure; R80.9 Proteinuria, unspecified; D63.1 Anemia in chronic kidney disease; I50.9 Heart failure, unspecified; E78.5 Hyperlipidemia, unspecified; K59.00 Constipation, unspecified; E87.5 Hyperkalemia; Z91.14 Patient's other noncompliance with medication regimen; Z79.4 Long term (current) use of insulin; Z89.512 Acquired absence of left leg below knee; Z91.018 Allergy to other foods
CPT/HCPCS: 36216; 36415; 36416; 36430; 71045; 71046; 71275; 74018; 76770; 80048; 80053; 80061; 80306; 81003; 81015; 82553; 82565; 83036; 83735; 83880; 84100; 84484; 85014; 85018; 85025; 85049; 85347; 85379; 85610; 85730; 86850; 86900; 86901; 87040; 93005; 93010; 93306; 93458; 93798; 94640; 96361; 96365; 96375; 99152; 99153; C1769; J0131; J0360; J0456; J0696; J1100; J1265; J1642; J1644; J1650; J1815; J1885; J1940; J2001; J2250; J2270; J2405; J2440; J2550; J2704; J2720; J3010; J3370; J3475; J3480; J3490; J7620; L8440; P9016; P9045; Q5105; Q9967; S0017; S0028

== ENCOUNTER 2019-03-30 03:53 | Emergency (ER) | payer MEDICARE | END 2019-03-30 05:28 | disposition home or self-care (01) | LOC: ERS 03:53 | DX: E10.649 Type 1 diabetes mellitus with hypoglycemia without coma (principal); I25.2 Old myocardial infarction; I12.9 Hypertensive chronic kidney disease with stage 1 through stage 4 chronic kidney disease, or unspecified chronic kidney disease; N18.3 Chronic kidney disease, stage 3 (moderate) | CPT/HCPCS: 36416; 99285 ==